=== PATIENT | male | born 1955 | race Caucasian/White ===

== ENCOUNTER → 2016-12-20 | Outpatient (CLI) | payer BC | LOC: RAD 14:45 | PROVIDERS: ATTEND Specialist | DX: C34.02 Malignant neoplasm of left main bronchus (principal) | CPT/HCPCS: 78815; A9552 ==

== ENCOUNTER → 2017-04-02 | Outpatient (CLI) | payer BC, MEDICAID | LOC: RAD 14:36 | PROVIDERS: ATTEND Internal Medicine | DX: C34.02 Malignant neoplasm of left main bronchus (principal); Z92.21 Personal history of antineoplastic chemotherapy | CPT/HCPCS: 78815; A9552 ==

== ENCOUNTER → 2017-07-25 | Outpatient (CLI) | payer BC, MEDICAID ==
--- NOTE | 2017-07-27 08:21 | RADIOLOGY REPORT (SQ) ---
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 TECHNIQUE: Blood glucose level was verified. Above dose of FDG was injected intravenously. 2-D seg mented attenuation correction images were obtained from the base of the skull to the midthighs. Nonc ontrast CT images were obtained for attenuation correction and fusion with emission images. CT image s were performed without oral or intravenous contrast and are not sensitive for parenchymal lesions. A series of overlapping emission PET images were obtained. Images reviewed and manipulated at [facility] work station by the radiologist. Images stored on PACS. LIMITATIONS: None. FINDINGS: HEAD AND NECK: No areas of abnormal metabolic activity in the soft tissues of the head and neck. CHEST: No areas of abnormal metabolic activity in the chest. Stable minimal bandlike scarring in the left perihilar region and left lung apex, non metabolic. ABDOMEN AND PELVIS: No areas of abnormal metabolic activity in the abdomen or pelvis. Expected physi ologic activity is present in the genitourinary system and bowel. PROXIMAL LOWER EXTREMITIES: No areas of abnormal metabolic activity in the soft tissues of the lower extremities. BONES: Stable sclerotic bony lesions throughout the thoracic and lumbar spine sacrum and right and le ft pelvis. These are non metabolic ADDITIONAL CT FINDINGS: Right-sided central line tip superior vena cava. Calcified coronary and aort ic valve. Small hiatal hernia. OTHER: Liver background uptake 2.4 SUV. Blood pool background uptake 1.7 SUV. IMPRESSION: No hypermetabolic lesions worrisome for active metastatic disease TECHNICAL DOCUMENTATION: JOB ID: [id number]- All Rights Reserved
== END ==
LOC: RAD 17:28
PROVIDERS: ATTEND Internal Medicine
DX: C34.02 Malignant neoplasm of left main bronchus (principal)
CPT/HCPCS: 78815; A9552

== ENCOUNTER 2017-09-01 10:48 | Outpatient (CLI) | payer BC, MEDICAID, MEDICARE ==
[~2017-09-01 10:48] MED LIST: NIVOLUMAB 200 MG, NIVOLUMAB 40 MG in NORMAL SALINE 100 ML IV PRN; NORMAL SALINE 250 ML IV PRN
[2017-09-01 11:07] VITALS: BP 143/70
== END 2017-09-01 14:49 | disposition home or self-care (01) ==
LOC: II 10:48 → 5TH 11:01 → II 14:49
PROVIDERS: ATTEND Internal Medicine
PROC: 3E0430M Introduction of Antineoplastic, Monoclonal Antibody, into Central Vein, Percutaneous Approach (ICD-10-PCS; principal; 2017-09-01)
DX: Z51.11 Encounter for antineoplastic chemotherapy (principal); C34.02 Malignant neoplasm of left main bronchus
CPT/HCPCS: 96413; 96523; J9299 ×2

== ENCOUNTER 2017-09-15 10:42 | Outpatient (CLI) | payer MEDICARE, MEDICAID ==
[2017-09-15 11:02] VITALS: BP 151/66
== END 2017-09-15 14:05 | disposition home or self-care (01) ==
LOC: II 10:42 → 5TH 10:49 → II 14:05
PROVIDERS: ATTEND Internal Medicine
PROC: 3E0330M Introduction of Antineoplastic, Monoclonal Antibody, into Peripheral Vein, Percutaneous Approach (ICD-10-PCS; principal; 2017-09-15)
DX: Z51.11 Encounter for antineoplastic chemotherapy (principal); C34.02 Malignant neoplasm of left main bronchus; C78.7 Secondary malignant neoplasm of liver and intrahepatic bile duct; C79.51 Secondary malignant neoplasm of bone
CPT/HCPCS: 96413; 96375; J9299 ×2

== ENCOUNTER 2017-09-29 10:25 | Outpatient (CLI) | payer MEDICAID, MEDICARE ==
[2017-09-29 10:46] VITALS: BP 139/82
== END 2017-09-29 13:10 | disposition home or self-care (01) ==
LOC: II 10:25 → 5TH 10:30 → II 13:10
PROVIDERS: ATTEND Internal Medicine
PROC: 3E0430M Introduction of Antineoplastic, Monoclonal Antibody, into Central Vein, Percutaneous Approach (ICD-10-PCS; principal; 2017-09-29)
DX: Z51.11 Encounter for antineoplastic chemotherapy (principal); C34.02 Malignant neoplasm of left main bronchus
CPT/HCPCS: 96413; 96523; J9299 ×2

== ENCOUNTER 2017-10-13 09:17 | Outpatient (CLI) | payer MEDICAID, MEDICARE ==
[2017-10-13 09:45] VITALS: BP 138/68
[2017-10-13 10:42] LABS: ABSOLUTE BASOPHILS # (AUTO) 0.1 10^3/uL (0.0-0.2); ABSOLUTE EOSINOPHILS # (AUTO) 0.1 10^3/uL (0.0-0.6); ABSOLUTE LYMPHOCYTES (AUTO) 1.3 10^3/uL (0.5-4.7); ABSOLUTE MONOCYTES (AUTO) 0.5 10^3/uL (0.1-1.4); BASOPHILS % (AUTO) 0.8 % (0-2); HEMATOCRIT 42.9 % (37.9-51.0); HEMOGLOBIN 14.9 g/dL (13.5-17.0); HGB HCT DIFFERENCE 1.8; LYMPHOCYTES % (AUTO) 18.4 % (13-45); MEAN CORPUSCULAR HEMOGLOBIN 29.7 pg (27.0-33.4); MEAN CORPUSCULAR HGB CONC 34.7 g/dL (32.0-36.0); MEAN CORPUSCULAR VOLUME 86 fl (80-97); MONOCYTES % (AUTO) 7.4 % (3-13); RED BLOOD COUNT 5.01 10^6/uL (4.35-5.55); RED CELL DISTRIBUTION WIDTH 13.5 % (11.5-14.0); SEGMENTED NEUTROPHILS % (AUTO) 72.4 % (42-78); WHITE BLOOD COUNT 6.9 10^3/uL (4.0-10.5)
== END 2017-10-13 12:43 | disposition home or self-care (01) ==
LOC: II 09:17 → 5TH 09:18 → II 12:43
PROVIDERS: ATTEND Internal Medicine
PROC: 3E0430M Introduction of Antineoplastic, Monoclonal Antibody, into Central Vein, Percutaneous Approach (ICD-10-PCS; principal; 2017-10-13)
DX: Z51.11 Encounter for antineoplastic chemotherapy (principal); C34.02 Malignant neoplasm of left main bronchus
CPT/HCPCS: 36415; 83735; 85025; 96413; 96523; J9299 ×2

== ENCOUNTER 2017-10-27 10:05 | Outpatient (CLI) | payer MEDICARE, MEDICAID ==
[2017-10-27 10:54] VITALS: BP 134/59
== END 2017-10-27 13:56 | disposition home or self-care (01) ==
LOC: II 10:05 → 5TH 10:05 → II 13:56
PROVIDERS: ATTEND Internal Medicine
PROC: 3E0430M Introduction of Antineoplastic, Monoclonal Antibody, into Central Vein, Percutaneous Approach (ICD-10-PCS; principal; 2017-10-27)
DX: Z51.11 Encounter for antineoplastic chemotherapy (principal); C34.02 Malignant neoplasm of left main bronchus
CPT/HCPCS: 96413; 96523; J9299 ×2

== ENCOUNTER 2017-11-10 08:01 | Outpatient (CLI) | payer MEDICAID, MEDICARE ==
[2017-11-10 08:25] LABS: ABSOLUTE BASOPHILS # (AUTO) 0.1 10^3/uL (0.0-0.2); ABSOLUTE LYMPHOCYTES (AUTO) 1.5 10^3/uL (0.5-4.7); ABSOLUTE MONOCYTES (AUTO) 1.5 10^3/uL (0.1-1.4); ABSOLUTE NEUT (AUTO) 10.8 10^3/uL (1.7-8.2); BASOPHILS % (AUTO) 0.4 % (0-2); EOSINOPHILS % (AUTO) 0.2 % (0-6); HEMATOCRIT 43.1 % (37.9-51.0); HEMOGLOBIN 14.7 g/dL (13.5-17.0); LYMPHOCYTES % (AUTO) 10.8 % (13-45); MEAN CORPUSCULAR HEMOGLOBIN 29.5 pg (27.0-33.4); MEAN CORPUSCULAR HGB CONC 34.1 g/dL (32.0-36.0); MEAN CORPUSCULAR VOLUME 86 fl (80-97); MONOCYTES % (AUTO) 10.8 % (3-13); PLATELET COUNT 258 10^3/uL (150-450); RED BLOOD COUNT 4.98 10^6/uL (4.35-5.55); RED CELL DISTRIBUTION WIDTH 13.9 % (11.5-14.0); SEGMENTED NEUTROPHILS % (AUTO) 77.8 % (42-78); TOTAL CELLS COUNTED % (AUTO) 100 %; WHITE BLOOD COUNT 13.9 10^3/uL (4.0-10.5)
[2017-11-10 09:40] VITALS: BP 111/61
== END 2017-11-10 10:43 | disposition home or self-care (01) ==
LOC: II 08:01 → 5TH 08:04 → II 10:43
PROVIDERS: ATTEND Internal Medicine
PROC: 3E0430M Introduction of Antineoplastic, Monoclonal Antibody, into Central Vein, Percutaneous Approach (ICD-10-PCS; principal; 2017-11-10)
DX: Z51.11 Encounter for antineoplastic chemotherapy (principal); C34.02 Malignant neoplasm of left main bronchus
CPT/HCPCS: 36415; 83735; 85025; 96413; 96523; J9299 ×2

== ENCOUNTER 2017-11-24 11:00 | Outpatient (CLI) | payer MEDICARE ==
[2017-11-24 13:34] VITALS: BP 139/67
== END 2017-11-24 14:00 | disposition home or self-care (01) ==
LOC: II 11:00 → 5TH 11:14 → II 14:00
PROVIDERS: ATTEND Internal Medicine
PROC: 3E0430M Introduction of Antineoplastic, Monoclonal Antibody, into Central Vein, Percutaneous Approach (ICD-10-PCS; principal; 2017-11-24)
DX: Z51.11 Encounter for antineoplastic chemotherapy (principal); C34.02 Malignant neoplasm of left main bronchus
CPT/HCPCS: 96413; 96523; J9299 ×2

== ENCOUNTER → 2017-12-05 | Outpatient (CLI) | payer MEDICAID, MEDICARE ==
--- NOTE | 2017-12-06 09:42 | RADIOLOGY REPORT (SQ) ---
EXAM DESCRIPTION: PET CT SKULL/THIGH COMPLETED DATE/TIME: 12/05/2017 6:58 pm REASON FOR STUDY: LUNG CANCER C34.02 MALIGNANT NEOPLASM OF LEFT MAIN BRONCHUS COMPARISON: 07/25/2017 RADIONUCLIDE AND DOSE: 10.9 mCi F18 FDG The route of agent administration: Intravenous FASTING BLOOD SUGAR: 125 mg/dl CONTRAST TYPE AND DOSE: No CT contrast given. TECHNIQUE: Blood glucose level was verified. Above dose of FDG was injected intravenously. 2-D seg mented attenuation correction images were obtained from the base of the skull to the midthighs. Nonc ontrast CT images were obtained for attenuation correction and fusion with emission images. CT image s were performed without oral or intravenous contrast and are not sensitive for parenchymal lesions. A series of overlapping emission PET images were obtained. Images reviewed and manipulated at [facility] work station by the radiologist. Images stored on PACS. LIMITATIONS: None. FINDINGS: HEAD AND NECK: No areas of abnormal metabolic activity in the soft tissues of the head and neck. CHEST: No areas of abnormal metabolic activity in the chest. ABDOMEN AND PELVIS: No areas of abnormal metabolic activity in the abdomen or pelvis. Expected physi ologic activity is present in the genitourinary system and bowel. PROXIMAL LOWER EXTREMITIES: No areas of abnormal metabolic activity in the soft tissues of the lower extremities. BONES: Stable scattered non hypermetabolic sclerotic lesions in the axial skeleton. ADDITIONAL CT FINDINGS: Stable scarring in the left hilum and left apex. OTHER: No other significant findings. IMPRESSION: No evidence of local recurrence or metastatic disease. TECHNICAL DOCUMENTATION: JOB ID: [id number]- All Rights Reserved
== END ==
LOC: RAD 16:37
PROVIDERS: ATTEND Internal Medicine
DX: C34.02 Malignant neoplasm of left main bronchus (principal)
CPT/HCPCS: 78815; A9552

== ENCOUNTER 2017-12-08 10:17 | Outpatient (CLI) | payer MEDICARE ==
[2017-12-08 11:33] VITALS: BP 136/66
== END 2017-12-08 13:13 | disposition home or self-care (01) ==
LOC: II 10:17 → 5TH 10:24 → II 13:13
PROVIDERS: ATTEND Internal Medicine
PROC: 3E0430M Introduction of Antineoplastic, Monoclonal Antibody, into Central Vein, Percutaneous Approach (ICD-10-PCS; principal; 2017-12-08)
DX: Z51.11 Encounter for antineoplastic chemotherapy (principal); C34.02 Malignant neoplasm of left main bronchus
CPT/HCPCS: 96413; 96375; J9299 ×2

== ENCOUNTER → 2018-03-06 | Outpatient (CLI) | payer MEDICAID, MEDICARE ==
--- NOTE | 2018-03-07 10:44 | RADIOLOGY REPORT (SQ) ---
EXAM DESCRIPTION: PET CT SKULL/THIGH COMPLETED DATE/TIME: 03/06/2018 7:54 pm REASON FOR STUDY: LUNG CANCER C34.02 MALIGNANT NEOPLASM OF LEFT MAIN BRONCHUS COMPARISON: PET-CT 08/04/2015, 11/10/2015, 08/23/2016, 07/25/2017, 12/05/2017 RADIONUCLIDE AND DOSE: 12 mCi F18 FDG The route of agent administration: Intravenous FASTING BLOOD SUGAR: 180 mg/dl CONTRAST TYPE AND DOSE: No CT contrast given. TECHNIQUE: Blood glucose level was verified. Above dose of FDG was injected intravenously. 2-D seg mented attenuation correction images were obtained from the base of the skull to the midthighs. Nonc ontrast CT images were obtained for attenuation correction and fusion with emission images. CT image s were performed without oral or intravenous contrast and are not sensitive for parenchymal lesions. A series of overlapping emission PET images were obtained. Images reviewed and manipulated at [facility] work station by the radiologist. Images stored on PACS. LIMITATIONS: None. FINDINGS: HEAD AND NECK: No areas of abnormal metabolic activity in the soft tissues of the head and neck. CHEST: No areas of abnormal metabolic activity in the chest. Non metabolic bandlike scarring in the posterior lung apex. Minimal fullness left upper hilum non metabolic. ABDOMEN AND PELVIS: No areas of abnormal metabolic activity in the abdomen or pelvis. Expected physi ologic activity is present in the genitourinary system and bowel. PROXIMAL LOWER EXTREMITIES: No areas of abnormal metabolic activity in the soft tissues of the lower extremities. BONES: Old healed left anterior 3rd rib fracture. Multiple foci of sclerosis throughout the thoracic spine, ribs, L5 vertebral body, and bony pelvis non metabolic. These are similar compared to 018, 07/25/[address] FINDINGS: Right central line tip superior vena cava. Calcified carotid bifurcations. Small fat containing left inguinal hernia. Calcified aortic valve. OTHER: Liver background activity 1.9 SUV. Blood pool background activity 1.6 SUV IMPRESSION: No metabolically active lesions over the neck chest abdomen or pelvis. Non metabolic sc lerotic bony lesions. Scarring left upper lobe. TECHNICAL DOCUMENTATION: JOB ID: [id number] All Rights Reserved Reading location - IP/workstation name: [email or web address]
== END ==
LOC: RAD 14:45
PROVIDERS: ATTEND Internal Medicine
DX: C34.02 Malignant neoplasm of left main bronchus (principal)
CPT/HCPCS: 78815; A9552

== ENCOUNTER 2018-03-30 09:54 | Outpatient (CLI) | payer MEDICARE, OTHER ==
[2018-03-30 10:30] VITALS: BP 144/70
[2018-03-30 12:00] LABS: ABSOLUTE EOSINOPHILS # (AUTO) 0.1 10^3/uL (0.0-0.6); ABSOLUTE LYMPHOCYTES (AUTO) 1.3 10^3/uL (0.5-4.7); ABSOLUTE MONOCYTES (AUTO) 0.6 10^3/uL (0.1-1.4); BASOPHILS % (AUTO) 0.8 % (0-2); EOSINOPHILS % (AUTO) 1.3 % (0-6); HEMATOCRIT 42.9 % (37.9-51.0); HEMOGLOBIN 14.9 g/dL (13.5-17.0); LYMPHOCYTES % (AUTO) 21.2 % (13-45); MEAN CORPUSCULAR HGB CONC 34.8 g/dL (32.0-36.0); MEAN CORPUSCULAR VOLUME 84 fl (80-97); MONOCYTES % (AUTO) 9.4 % (3-13); PLATELET COUNT 263 10^3/uL (150-450); RED BLOOD COUNT 5.15 10^6/uL (4.35-5.55); RED CELL DISTRIBUTION WIDTH 14.1 % (11.5-14.0); SEGMENTED NEUTROPHILS % (AUTO) 67.3 % (42-78); TOTAL CELLS COUNTED % (AUTO) 100 %; WHITE BLOOD COUNT 5.9 10^3/uL (4.0-10.5)
[2018-03-30 12:14] LABS: ALANINE AMINOTRANSFERASE 35 U/L (21-72); ALBUMIN 4.3 g/dL (3.5-5.0); ALKALINE PHOSPHATASE 92 U/L (38-126); ANION GAP 12 (5-19); ASPARTATE AMINO TRANSFERASE 11 U/L (17-59); BILIRUBIN,DIRECT 0.2 mg/dL (0.0-0.4); BILIRUBIN,TOTAL 0.2 mg/dL (0.2-1.3); BLOOD UREA NITROGEN 16 mg/dL (7-20); CALCIUM 9.4 mg/dL (8.4-10.2); CARBON DIOXIDE 31 mmol/L (22-30); CHLORIDE 95 mmol/L (98-107); GLUCOSE 249 mg/dL (75-110); POTASSIUM 5.1 mmol/L (3.6-5.0); SODIUM 137.5 mmol/L (137-145); TOTAL PROTEIN 7.2 g/dL (6.3-8.2)
== END 2018-03-30 14:04 | disposition home or self-care (01) ==
LOC: II 09:54 → 5TH 09:56 → II 14:04
PROVIDERS: ATTEND Internal Medicine
PROC: 3E0430M Introduction of Antineoplastic, Monoclonal Antibody, into Central Vein, Percutaneous Approach (ICD-10-PCS; principal; 2018-03-30)
DX: Z51.11 Encounter for antineoplastic chemotherapy (principal); C34.02 Malignant neoplasm of left main bronchus
CPT/HCPCS: 36415; 83735; 85025; 80053; 96413; 96374; J9299 ×2

== ENCOUNTER 2018-04-13 12:29 | Outpatient (CLI) | payer MEDICARE, OTHER ==
[2018-04-13 13:14] VITALS: BP 152/69
== END 2018-04-13 15:32 | disposition home or self-care (01) ==
LOC: II 12:29 → 5TH 12:31 → II 15:32
PROVIDERS: ATTEND Internal Medicine
PROC: 3E0430M Introduction of Antineoplastic, Monoclonal Antibody, into Central Vein, Percutaneous Approach (ICD-10-PCS; principal; 2018-04-13)
DX: Z51.11 Encounter for antineoplastic chemotherapy (principal); C34.02 Malignant neoplasm of left main bronchus
CPT/HCPCS: 96413; J9299 ×2

== ENCOUNTER → 2018-06-05 | Outpatient (CLI) | payer MEDICARE, OTHER ==
--- NOTE | 2018-06-06 09:22 | RADIOLOGY REPORT (SQ) ---
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 TECHNIQUE: Blood glucose level was verified. Above dose of FDG was injected intravenously. 2-D seg mented attenuation correction images were obtained from the base of the skull to the midthighs. Nonc ontrast CT images were obtained for attenuation correction and fusion with emission images. CT image s were performed without oral or intravenous contrast and are not sensitive for parenchymal lesions. A series of overlapping emission PET images were obtained. Images reviewed and manipulated at [facility] work station by the radiologist. Images stored on PACS. LIMITATIONS: None. FINDINGS: HEAD AND NECK: No areas of abnormal metabolic activity in the soft tissues of the head and neck. CHEST: No areas of abnormal metabolic activity in the chest. Stable scarring in the left perihilar r egion, stable pleural thickening with adjacent parenchymal scarring from radiation therapy in the ant erior right upper lobe and posterior aspect superior segment left lower lobe. ABDOMEN AND PELVIS: No areas of abnormal metabolic activity in the abdomen or pelvis. Expected physi ologic activity is present in the genitourinary system and bowel. PROXIMAL LOWER EXTREMITIES: No areas of abnormal metabolic activity in the soft tissues of the lower extremities. BONES: No abnormal metabolic activity in the visualized skeleton. Old sclerotic metastatic lesions a re present in the T-Tube, T10, and L5 vertebral bodies, bilateral innominate bones, anterior left upp er ribs. ADDITIONAL CT FINDINGS: Right permanent central line tip superior vena cava. Small hiatal hernia. C alcified carotid bifurcations. Calcified aortic valve. OTHER: Liver background activity 2.0 SUV. Blood pool background activity 1.4 SUV. IMPRESSION: No metabolically active lesions are identified. TECHNICAL DOCUMENTATION: JOB ID: [id number] [employer]- All Rights Reserved Reading location - IP/workstation name: [email or web address]
== END ==
LOC: RAD 05-29 16:10
PROVIDERS: ATTEND Internal Medicine
DX: C34.02 Malignant neoplasm of left main bronchus (principal)
CPT/HCPCS: 78815; A9552

== ENCOUNTER → 2018-08-28 | Outpatient (CLI) | payer MEDICARE, OTHER ==
--- NOTE | 2018-08-29 08:50 | RADIOLOGY REPORT (SQ) ---
EXAM DESCRIPTION: PET CT SKULL/THIGH COMPLETED DATE/TIME: 08/28/2018 10:36 pm REASON FOR STUDY: LUNG CANCER C34.02 MALIGNANT NEOPLASM OF LEFT MAIN BRONCHUS COMPARISON: Prior PET-CT 07/25/2017, 03/06/2018, 06/05/2018 RADIONUCLIDE AND DOSE: 11.6 mCi F18 FDG The route of agent administration: Intravenous FASTING BLOOD SUGAR: 174 mg/dl CONTRAST TYPE AND DOSE: No CT contrast given. TECHNIQUE: Blood glucose level was verified. Above dose of FDG was injected intravenously. 2-D seg mented attenuation correction images were obtained from the base of the skull to the midthighs. Nonc ontrast CT images were obtained for attenuation correction and fusion with emission images. CT image s were performed without oral or intravenous contrast and are not sensitive for parenchymal lesions. A series of overlapping emission PET images were obtained. Images reviewed and manipulated at [facility] work station by the radiologist. Images stored on PACS. LIMITATIONS: None. FINDINGS: HEAD AND NECK: No areas of abnormal metabolic activity in the soft tissues of the head and neck. CHEST: No areas of abnormal metabolic activity in the chest. ABDOMEN AND PELVIS: No areas of abnormal metabolic activity in the abdomen or pelvis. Expected physi ologic activity is present in the genitourinary system and bowel. PROXIMAL LOWER EXTREMITIES: No areas of abnormal metabolic activity in the soft tissues of the lower extremities. BONES: No abnormal metabolic activity in the visualized skeleton. ADDITIONAL CT FINDINGS: Calcified aortic valve. Right permanent central line tip superior vena cava. OTHER: No other significant findings. IMPRESSION: No hypermetabolic lesions worrisome for recurrent lung cancer TECHNICAL DOCUMENTATION: JOB ID: [id number]- All Rights Reserved Reading location - IP/workstation name: [email or web address]
== END ==
LOC: RAD 20:16
PROVIDERS: ATTEND Physician Assistant Medical
DX: C34.02 Malignant neoplasm of left main bronchus (principal)
CPT/HCPCS: 78815; A9552

== ENCOUNTER → 2018-12-18 | Outpatient (CLI) | payer MEDICARE, OTHER ==
--- NOTE | 2018-12-19 09:36 | RADIOLOGY REPORT (SQ) ---
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 TECHNIQUE: Blood glucose level was verified. Above dose of FDG was injected intravenously. 2-D seg mented attenuation correction images were obtained from the base of the skull to the midthighs. Nonc ontrast CT images were obtained for attenuation correction and fusion with emission images. CT image s were performed without oral or intravenous contrast and are not sensitive for parenchymal lesions. A series of overlapping emission PET images were obtained. Images reviewed and manipulated at [facility] work station by the radiologist. Images stored on PACS. LIMITATIONS: None. FINDINGS: HEAD AND NECK: No areas of abnormal metabolic activity in the soft tissues of the head and neck. CHEST: No areas of abnormal metabolic activity in the chest. ABDOMEN AND PELVIS: No areas of abnormal metabolic activity in the abdomen or pelvis. Expected physi ologic activity is present in the genitourinary system and bowel. PROXIMAL LOWER EXTREMITIES: No areas of abnormal metabolic activity in the soft tissues of the lower extremities. BONES: No abnormal metabolic activity in the visualized skeleton. ADDITIONAL CT FINDINGS: Right permanent central line tip superior vena cava. Heavy coronary artery c alcifications. Small hiatal hernia old post therapeutic bandlike scarring in the left perihilar lung parenchyma from radiation therapy old anterior left 4th rib fracture OTHER: No other significant findings. IMPRESSION: No PET-CT evidence of recurrent squamous lung carcinoma. TECHNICAL DOCUMENTATION: JOB ID: [id number] [employer]- All Rights Reserved Reading location - IP/workstation name: [email or web address]
== END ==
LOC: RAD 14:51
PROVIDERS: ATTEND Physician Assistant Medical
DX: C34.02 Malignant neoplasm of left main bronchus (principal); C79.51 Secondary malignant neoplasm of bone
CPT/HCPCS: 78815; A9552

== ENCOUNTER → 2019-06-25 | Outpatient (CLI) | payer MEDICARE, OTHER ==
--- NOTE | 2019-06-26 12:12 | RADIOLOGY REPORT (SQ) ---
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 TECHNIQUE: Blood glucose level was verified. Above dose of FDG was injected intravenously. 2-D seg mented attenuation correction images were obtained from the base of the skull to the midthighs. Nonc ontrast CT images were obtained for attenuation correction and fusion with emission images. CT image s were performed without oral or intravenous contrast and are not sensitive for parenchymal lesions. A series of overlapping emission PET images were obtained. Images reviewed and manipulated at [facility] work station by the radiologist. Images stored on PACS. LIMITATIONS: None. FINDINGS: HEAD AND NECK: No areas of abnormal metabolic activity in the soft tissues of the head and neck. CHEST: No areas of abnormal metabolic activity in the chest. Old post radiation therapy change in th e medial left lung along the hilum. This is non metabolic. ABDOMEN AND PELVIS: No areas of abnormal metabolic activity in the abdomen or pelvis. Expected physi ologic activity is present in the genitourinary system and bowel. PROXIMAL LOWER EXTREMITIES: No areas of abnormal metabolic activity in the soft tissues of the lower extremities. BONES: No abnormal metabolic activity in the visualized skeleton. There are patchy areas of sclerosi s and ribs thoracic spine and pelvis related to previously treated bone metastatic lesions. These ar e non metabolic on today's study. ADDITIONAL CT FINDINGS: Right-sided permanent central line tip superior vena cava. Heavily calcified aortic valve and coronary arteries. Old hiatal hernia. OTHER: No other significant findings. IMPRESSION: No PET-CT evidence of recurrent metabolically active lung cancer TECHNICAL DOCUMENTATION: JOB ID: [id number]- All Rights Reserved Reading location - IP/workstation name: [email or web address]
== END ==
LOC: RAD 16:40
PROVIDERS: ATTEND Physician Assistant Medical
DX: C34.02 Malignant neoplasm of left main bronchus (principal)
CPT/HCPCS: 78815; A9552

== ENCOUNTER 2019-10-15 00:43 | Emergency (ER) | payer MEDICARE, OTHER ==
[2019-10-15] MEDS ORDERED: IPRATROPIUM/ALBUTEROL 0.5-2.5 MG/3 ML AMPUL NEB ONE ×2 (00:53→02:18)
[2019-10-15] MEDS ORDERED: IPRATROPIUM BROMIDE HFA 17 MCG/PUFF 200 PUFF/12.9 GM MDI IH ONE (01:09)
--- NOTE | 2019-10-15 01:09 | ER Document Report ---
ED General - General Chief Complaint: Shortness Of Breath Stated Complaint: RESPIRATORY DISTRESS Time Seen by Provider: 10/15/19 00:49 Primary Care Provider: DIGNA DODGE PA-C [ALLIED HEALTH PROFESSIONAL] - Follow up as needed TRAVEL OUTSIDE OF THE [place] IN LAST 30 DAYS: No - HPI Notes: 64-year-old male with a history of stage IV lung cancer, currently undergoing chemotherapy by Dr. Moore, presents to the emergency department via rescue for evaluation of acute onset of shortness of breath about 1-1/2 hours prior to arrival. EMS reports that the patient was very hypertensive and diaphoretic when they arrived and seemed to be in acute distress in terms of respiratory difficulty. EMS stated that after giving the patient a albuterol treatment, 2 DuoNeb treatments and 125 mg of Solu-Medrol IV he seems to be improving somewhat. Patient's initial pulse ox per EMS upon their arrival was 58% on room air. Patient states he is not on home O2. - Related Data Allergies/Adverse Reactions: epinephrine [Epinephrine] Allergy (Severe, Verified 05/06/15 12:18) Tachycardia indomethacin [Indomethacin] Allergy (Severe, Verified 05/06/15 12:18) GI BLEED Past Medical History - General Information source: Patient, Emergency Med Personnel - Social History Smoking Status: Current Every Day Smoker Family History: Reviewed & Not Pertinent Patient has suicidal ideation: No Patient has homicidal ideation: No - Past Medical History Cardiac Medical History: Reports: Hx Hypertension - NOT ON MEDS Denies: Hx Coronary Artery Disease, Hx Heart Attack Pulmonary Medical History: Reports: Hx Asthma - FROM , Hx Bronchitis, Hx Pneumonia - many years ago (15-20 yrs ago) Denies: Hx COPD Neurological Medical History: Denies: Hx Cerebrovascular Accident, Hx Seizures Malignancy Medical History: Reports Hx Lung Cancer Musculoskeletal Medical History: Reports Hx Arthritis - SHOULDERS - Immunizations Hx Diphtheria, Pertussis, Tetanus Vaccination: No Hx Pneumococcal Vaccination: 11/22/04 Review of Systems - Review of Systems Constitutional: No symptoms reported EENT: No symptoms reported Cardiovascular: No symptoms reported Respiratory: Cough, Short of breath Gastrointestinal: No symptoms reported Genitourinary: No symptoms reported Male Genitourinary: No symptoms reported Musculoskeletal: No symptoms reported Skin: No symptoms reported Hematologic/Lymphatic: No symptoms reported Neurological/Psychological: No symptoms reported -: Yes All other systems reviewed and negative Physical Exam - Vital signs Vitals: Resp Pulse Ox 21 H 100 10/15/19 00:46 10/15/19 00:46 - Notes Notes: PHYSICAL EXAMINATION: GENERAL: Patient is ill-appearing and does appear to be in some respiratory distress. Patient is tachypneic and is using accessory muscles. Patient is able to speak in short sentences. HEAD: Atraumatic, normocephalic. EYES: Pupils equal round and reactive to light, extraocular movements intact, sclera anicteric, conjunctiva are normal. ENT: nares patent, oropharynx clear without exudates. Moist mucous membranes. NECK: Normal range of motion, supple without lymphadenopathy LUNGS: Diffuse rhonchi are noted on auscultation. HEART: Tachycardia without murmurs ABDOMEN: Soft, nontender, normoactive bowel sounds. No guarding, no rebound. No masses appreciated. EXTREMITIES: Normal range of motion, no pitting or edema. No cyanosis. NEUROLOGICAL: No focal neurological deficits. Moves all extremities spontaneously and on command. PSYCH: Normal mood, normal affect. SKIN: Warm, Dry, normal turgor, no rashes or lesions noted. Course - Re-evaluation Re-evalutation: 10/15/19 04:56 Patient is currently sleeping, no acute distress SPO2 is 92 blood pressure is 142/79 heart rate of 98. - Vital Signs Vital signs: Temp Pulse Resp BP Pulse Ox 98.1 F 117 H 16 132/66 H 96 10/15/19 00:50 10/15/19 00:50 10/15/19 03:23 10/15/19 04:21 10/15/19 04:21 10/15/19 04:57 Vital signs reviewed by this MD. - Laboratory Result Diagrams: 10/15/19 00:20 10/15/19 00:20 Laboratory results interpreted by me: 10/15/19 10/15/19 10/15/19 00:20 00:20 00:20 Seg Neutrophils % 40.5 L Potassium 5.1 H Glucose 369 H POC Glucose NT-Pro-B Natriuret Pep 854 H 10/15/19 00:56 Seg Neutrophils % Potassium Glucose POC Glucose 322 H NT-Pro-B Natriuret Pep All lab results reviewed by this MD. - Diagnostic Test Radiology reviewed: Reports reviewed - EKG Interpretation by Me Additional EKG results interpreted by me: 10/15/19 04:57 EKG performed on 10/15/2019 at 00 52 hours was interpreted by this MD. Findings sinus tachycardia, rate 129, normal axis, right bundle branch block present, nonspecific ST segments. Impression sinus tachycardia with right bundle branch block and nonspecific ST segments. Discharge - Discharge Clinical Impression: Acute dyspnea, Lung cancer, Tobacco abuse Condition: Fair Disposition: HOME, SELF-CARE Instructions: Dyspnea, Nonspecific ([facility]) Additional Instructions: HOME CARE INSTRUCTIONS & INFORMATION: Thank you for choosing us for your medical needs. We hope you're satisfied with the care you received. After you leave, you must properly care for your problem and, at the same time, observe its progress. Any condition can change. Some illnesses can change rapidly over hours or days. If your condition worsens, return to the Emergency Department or see your physician promptly. ABOUT YOUR X-RAYS AND EKG'S: If you had an EKG or X-rays taken, they have been read by the Emergency Physician. The X-rays and EKG's will also be read by a Radiologist or Sack Filler within 24 hours. If discrepancies are noted, you will be notified by telephone. Please be certain the ED has a correct telephone number & address where you can be reached. Also, realize that some fractures or abnormalities do not show up on initial X-rays. If your symptoms continue, see your physician. ABOUT YOUR LABORATORY TEST: If you had laboratory tests, the results have been reviewed by the Emergency Physician. Some test results (for example cultures) may not be available for several days. You will be contacted if any test result shows you need additional treatment. Please be certain the ED has a correct telephone number and address where you can be reached. ABOUT YOUR MEDICATIONS: You will receive instructions on how to take your medicine on the prescription label you receive. Additional information may be provided by the Pharmacy. If you have questions afterwards, call the ED for clarification or further instructions. Some prescribed medications may cause drowsiness. Do not perform tasks such as driving a car or operating machinery without consulting your Pharmacist. If you feel you need a refill of pain m edication, your condition will need re-evaluation. Please do not call for a refill of any medication. ABOUT YOUR SIGNATURE: Signature of this document acknowledges to followin. Understanding that you received emergency treatment and that you may be released before al medical problems are known or treated. Please be certain the ED has a correct phone number & address where you can be reached. 2. Acknowledgement that you will arrange for follow-up care as recommended. 3. Authorization for the Emergency Physician to provide information to your follow-up Physician in order to maximize your care. AT ANY TIME, IF YOUR SYMPTOMS CHANGE SIGNIFICANTLY OR WORSEN OR YOU DEVELOP NEW SYMPTOMS, RETURN TO THE EMERGENCY DEPARTMENT IMMEDIATELY FOR RE-EVALUATION. OUR GOAL IS TO PROVIDE EXCELLENT MEDICAL CARE! WE HOPE THAT WE HAVE MET YOUR EXPECTATIONS DURING YOUR EMERGENCY DEPARTMENT VISIT AND THAT YOU FEEL YOU HAVE RECEIVED EXCELLENT CARE! Return to the Emergency Department without delay if any worse. Forms: Smoking Cessation Education Referrals: DIGNA DODGE PA-C [ALLIED HEALTH PROFESSIONAL] - Follow up as needed MARIBELL MOORE MD [ACTIVE STAFF] - 10/16/19
[2019-10-15 01:12] LABS: ABSOLUTE BASOPHILS # (AUTO) 0.1 10^3/uL (0.0-0.2); ABSOLUTE EOSINOPHILS # (AUTO) 0.3 10^3/uL (0.0-0.6); ABSOLUTE LYMPHOCYTES (AUTO) 3.1 10^3/uL (0.5-4.7); ABSOLUTE MONOCYTES (AUTO) 0.7 10^3/uL (0.1-1.4); ABSOLUTE NEUT (AUTO) 2.9 10^3/uL (1.7-8.2); BASOPHILS % (AUTO) 1.8 % (0-2); EOSINOPHILS % (AUTO) 4.7 % (0-6); HEMOGLOBIN 15.4 g/dL (13.5-17.0); LYMPHOCYTES % (AUTO) 43.6 % (13-45); MEAN CORPUSCULAR HEMOGLOBIN 29.1 pg (27.0-33.4); MEAN CORPUSCULAR HGB CONC 34.2 g/dL (32.0-36.0); MEAN CORPUSCULAR VOLUME 85 fl (80-97); MONOCYTES % (AUTO) 9.4 % (3-13); PLATELET COUNT 253 10^3/uL (150-450); RED BLOOD COUNT 5.29 10^6/uL (4.35-5.55); SEGMENTED NEUTROPHILS % (AUTO) 40.5 % (42-78); TOTAL CELLS COUNTED % (AUTO) 100 %; WHITE BLOOD COUNT 7.1 10^3/uL (4.0-10.5)
[2019-10-15 01:40] LABS: ALBUMIN 4.2 g/dL (3.5-5.0); ALKALINE PHOSPHATASE 125 U/L (38-126); ANION GAP 12 (5-19); ASPARTATE AMINO TRANSFERASE 35 U/L (17-59); BILIRUBIN,DIRECT 0.1 mg/dL (0.0-0.4); BILIRUBIN,TOTAL 0.3 mg/dL (0.2-1.3); BLOOD UREA NITROGEN 14 mg/dL (7-20); CALCIUM 9.1 mg/dL (8.4-10.2); CARBON DIOXIDE 28 mmol/L (22-30); CHLORIDE 98 mmol/L (98-107); GLUCOSE 369 mg/dL (75-110); POTASSIUM 5.1 mmol/L (3.6-5.0); TOTAL PROTEIN 7.6 g/dL (6.3-8.2)
--- NOTE | 2019-10-15 01:49 | RADIOLOGY REPORT (SQ) ---
EXAM DESCRIPTION: XR CHEST 1 VIEW COMPLETED DATE/TME: 10/15/2019 00:49 CLINICAL HISTORY: 64 years Male, acute dyspnea COMPARISON: 05/08/15 NUMBER OF VIEWS/TECHNIQUE: 1/AP FINDINGS: Increased lung volume, clear parenchyma, normal cardiac silhouette, and intact bony thorax. Right jugular miniport catheter tip at the SVC. IMPRESSION: No acute cardiopulmonary findings.
[2019-10-15 01:52] LABS: TROPONIN I 0.02 ng/mL
[2019-10-15] MEDS ORDERED: NORMAL SALINE 500 ML IV ONE (01:59)
--- NOTE | 2019-10-15 04:02 | RADIOLOGY REPORT (SQ) ---
CT angiogram chest with contrast on 10/15/2019 at 3:17 AM CLINICAL INDICATION: Lung cancer, acute shortness of breath TECHNIQUE: Multiple axial images are obtained throughout the chest following the administration of IV contrast. Computer generated 3D reconstructions/MIPS were performed. This exam was performed according to our departmental dose-optimization program, which includes automated exposure control, adjustment of the mA and/or kV according to patient size and/or use of iterative reconstruction technique. Total DLP is 549.65 mGy*cm. COMPARISON: 06/25/2019 FINDINGS: There is no thoracic aortic aneurysm or dissection. Limited visualized upper abdomen is unremarkable. There is no pleural or pericardial effusion. Coronary artery calcifications and other vascular calcifications are noted. There are no filling defects within the pulmonary arteries to suggest pulmonary embolus. There is a stable central left upper lobe irregular soft tissue density with endobronchial component consistent with the patient's prior malignancy. Based upon the prior PET/CT, this is treated disease and/or posttreatment related changes. There is linear atelectasis or scarring in the left upper lung. There are some stable peripheral areas of atelectasis or scarring in the left lung. Lungs are otherwise clear. No acute bony abnormality is noted. IMPRESSION: 1. No evidence of pulmonary embolus. 2. Otherwise essentially stable exam.
[2019-10-15 05:19] VITALS: BP 149/72
--- NOTE | 2019-10-15 17:09 | EKG REPORT ---
SEVERITY:- ABNORMAL ECG - SINUS TACHYCARDIA RIGHT BUNDLE BRANCH BLOCK LPFB : Confirmed by: Damion Bingham MD 15-Oct-2019 17:08:42
== END 2019-10-15 06:57 | disposition home or self-care (01) ==
LOC: ER 00:43
DX: R06.02 Shortness of breath (principal); R06.00 Dyspnea, unspecified; C34.90 Malignant neoplasm of unspecified part of unspecified bronchus or lung; F17.200 Nicotine dependence, unspecified, uncomplicated; Z79.899 Other long term (current) drug therapy
CPT/HCPCS: 93005; 94640; 99285; 96360; 96361; 36415; 82962; 85025; 80053; 84484; 83605; 83880; 71045; 71275; 93010; J7040; A9270; J7620

== ENCOUNTER 2019-11-05 01:48 | Inpatient (IN) | payer MEDICARE, OTHER ==
[2019-11-05 02:38] LABS: VENOUS BLOOD BASE EXCESS 4.8 mmol/L; VENOUS BLOOD HCO3 32.3 mmol/L (20-32); VENOUS BLOOD PH 7.36 (7.30-7.42)
[2019-11-05 02:48] LABS: ABSOLUTE BASOPHILS # (AUTO) 0.1 10^3/uL (0.0-0.2); ABSOLUTE EOSINOPHILS # (AUTO) 0.2 10^3/uL (0.0-0.6); ABSOLUTE LYMPHOCYTES (AUTO) 1.7 10^3/uL (0.5-4.7); ABSOLUTE MONOCYTES (AUTO) 0.5 10^3/uL (0.1-1.4); ABSOLUTE NEUT (AUTO) 6.6 10^3/uL (1.7-8.2); BASOPHILS % (AUTO) 0.7 % (0-2); EOSINOPHILS % (AUTO) 2.6 % (0-6); HEMATOCRIT 45.6 % (37.9-51.0); HEMOGLOBIN 15.4 g/dL (13.5-17.0); LYMPHOCYTES % (AUTO) 18.2 % (13-45); MEAN CORPUSCULAR HEMOGLOBIN 28.9 pg (27.0-33.4); MEAN CORPUSCULAR HGB CONC 33.9 g/dL (32.0-36.0); MEAN CORPUSCULAR VOLUME 86 fl (80-97); MONOCYTES % (AUTO) 5.8 % (3-13); PLATELET COUNT 209 10^3/uL (150-450); RED BLOOD COUNT 5.33 10^6/uL (4.35-5.55); RED CELL DISTRIBUTION WIDTH 14.3 % (11.5-14.0); SEGMENTED NEUTROPHILS % (AUTO) 72.7 % (42-78); TOTAL CELLS COUNTED % (AUTO) 100 %; WHITE BLOOD COUNT 9.1 10^3/uL (4.0-10.5)
[2019-11-05 02:52] LABS: INTERNATIONAL RATION (INR) 0.92; PROTHROMBIN TIME 12.3 SEC (11.4-15.4)
[2019-11-05 03:06] LABS: ALKALINE PHOSPHATASE 143 U/L (38-126); ANION GAP 7 (5-19); ASPARTATE AMINO TRANSFERASE 15 U/L (17-59); BILIRUBIN,DIRECT 0.2 mg/dL (0.0-0.4); BILIRUBIN,TOTAL 0.5 mg/dL (0.2-1.3); BLOOD UREA NITROGEN 15 mg/dL (7-20); CALCIUM 8.8 mg/dL (8.4-10.2); CARBON DIOXIDE 32 mmol/L (22-30); CHLORIDE 96 mmol/L (98-107); POTASSIUM 4.5 mmol/L (3.6-5.0); TOTAL PROTEIN 6.9 g/dL (6.3-8.2)
[2019-11-05 03:15] LABS: GLUCOSE 406 mg/dL (75-110)
--- NOTE | 2019-11-05 03:40 | RADIOLOGY REPORT (SQ) ---
EXAM DESCRIPTION: X-ray single view chest. CLINICAL HISTORY: 64 years Male, SOB COMPARISON: Prior chest CT and chest x-ray performed on 10/15/2019 and TECHNIQUE: Single portable x-ray view of the chest performed on 11/05/2019 at 2:34 AM FINDINGS: The lungs are hyperinflated. There is a vague parenchymal opacity projecting over the left upper lobe over the posterior aspect of the left 5th rib. The lungs are otherwise grossly clear. The abnormalities noted on the prior chest CT are not well visualized on this examination. There is no evidence of a pneumothorax. The cardiac silhouette is stable and is mildly prominent. The mediastinal contours are normal. No acute osseous abnormality is identified. No focal soft tissue abnormalities are seen. Lines and tubes: The right IJ central venous catheter tip overlies the region of the superior vena cava. IMPRESSION: 1. Vague parenchymal opacity projecting over the posterior aspect of the left 5th rib. 2. Hyperinflation of the lungs. 3. Right IJ central venous catheter tip overlies the region of the superior vena cava. 4. Otherwise, the lungs are clear. The abnormalities noted on the prior chest CT are not well visualized on this examination.
[2019-11-05 04:40] LABS: APPEARANCE,URINE CLEAR; BILIRUBIN,URINE NEGATIVE (NEGATIVE); COLOR,URINE STRAW; GLUCOSE, URINE >=500 mg/dL (NEGATIVE); KETONES,URINE NEGATIVE (NEGATIVE); PROTEIN,URINE NEGATIVE (NEGATIVE); URINE SPECIFIC GRAVITY 1.021; UROBILINOGEN,URINE NEGATIVE mg/dL (<2.0)
--- NOTE | 2019-11-05 05:12 | ER Document Report ---
ED Respiratory Problem - General Chief Complaint: Shortness Of Breath Stated Complaint: DIFFICULTY BREATHING Time Seen by Provider: 11/05/19 04:58 Primary Care Provider: VÍCTOR DELGADILLO NP-C [Primary Care Provider] - Follow up as needed Notes: 64-year-old male presents to the urgency department with a history of shortness of breath and difficulty breathing. He has a history of COPD and his symptoms have been worse over the past couple of weeks. He was brought in tonight with respiratory distress, CPAP, nebulizer treatments x3, Solu-Medrol 125 mg, and magnesium IV. Patient states he is doing somewhat better, I have explained that his blood sugar is greater than 400. Patient states that he has not been taking his diabetes medicine. He does have the medication at home, however, this is not been taking it. TRAVEL OUTSIDE OF THE [place] IN LAST 30 DAYS: No - Related Data Allergies/Adverse Reactions: epinephrine [Epinephrine] Allergy (Severe, Verified 05/06/15 12:18) Tachycardia indomethacin [Indomethacin] Allergy (Severe, Verified 05/06/15 12:18) GI BLEED Past Medical History - Social History Smoking Status: Former Smoker Chew tobacco use (# tins/day): No Frequency of alcohol use: None Drug Abuse: None Family History: Reviewed & Not Pertinent Patient has suicidal ideation: No Patient has homicidal ideation: No - Past Medical History Cardiac Medical History: Reports: Hx Hypertension - NOT ON MEDS Denies: Hx Coronary Artery Disease, Hx Heart Attack Pulmonary Medical History: Reports: Hx Asthma - FROM , Hx Bronchitis, Hx Pneumonia - many years ago (15-20 yrs ago) Denies: Hx COPD Neurological Medical History: Denies: Hx Cerebrovascular Accident, Hx Seizures Malignancy Medical History: Reports Hx Lung Cancer Musculoskeletal Medical History: Reports Hx Arthritis - SHOULDERS - Immunizations Hx Diphtheria, Pertussis, Tetanus Vaccination: No Hx Pneumococcal Vaccination: 11/22/04 Physical Exam - Vital signs Vitals: Resp Pulse Ox 21 H 97 11/05/19 01:50 11/05/19 01:50 - Notes Notes: PHYSICAL EXAMINATION: Physical Exam: General: Well-nourished well-developed in no acute distress HEENT: NC/AT, pupils equal round and reactive to light, MM moist,nares clear, Neck: supple, no adenopathy, no masses. Lungs: Diffuse wheezing, no rales no rhonchi CVS: Regular rate and rhythm no murmur gallop or rub Abdomen: Soft active nontender, no masses, no hepatosplenomegaly Ext: Left shoulder tenderness, No edema clubbing or cyanosis. Neuro: Alert and responsive, moving all 4 extremities on command, cranial nerves intact. Skin: Intact no open lesions, no rash - HEENT Head: Normocephalic, Atraumatic Eyes: Normal Pupils: PERRL Course - Re-evaluation Re-evalutation: 11/05/19 06:12 Attempted to wean the patient from the BiPAP, after 20 minutes his O2 sat dropped to 90%. Discussed this with the hospitalist, , explained that the patient will need to be hospitalized for further management and treatment. Patient was treated with nebulizer treatments x3, Solu-Medrol 125 mg IV, magnesium IV. A ABG was obtained and IV Humulin was given for a blood sugar greater than 400. - Vital Signs Vital signs: Temp Pulse Resp BP Pulse Ox 97.9 F 13 112/63 97 11/05/19 02:58 11/05/19 04:01 11/05/19 04:01 11/05/19 04:01 - Laboratory Result Diagrams: 11/05/19 02:08 11/05/19 02:08 Laboratory results interpreted by me: 11/05/19 11/05/19 11/05/19 02:08 02:08 02:08 RDW 14.3 H VBG HCO3 32.3 H Sodium 134.5 L Chloride 96 L Carbon Dioxide 32 H Glucose 406 H* AST 15 L Alkaline Phosphatase 143 H Urine Glucose (UA) 11/05/19 04:28 RDW VBG HCO3 Sodium Chloride Carbon Dioxide Glucose AST Alkaline Phosphatase Urine Glucose (UA) >=500 H 11/05/19 05:27 I have reviewed laboratory data and used this information for the treatment decisions regarding the patient. Critical Care Note - Critical Care Note Total time excluding time spent on procedures (mins): 60 - Critical care Discharge - Discharge Clinical Impression: COPD exacerbation Condition: Fair Disposition: ADMITTED INPATIENT Admitting Provider: Rosamaria (Hospitalist) Unit Admitted: Medical Floor Referrals: VÍCTOR DELGADILLO, TROY-C [Primary Care Provider] - Follow up as needed
[2019-11-05] MEDS ORDERED: INSULIN REG, HUMAN 100 UNIT/ML 3 ML VIAL (PYX) IV ONE (05:32)
[2019-11-05] MEDS ORDERED: MAG HYDROX/AL HYDROX/SIMETH SUSP 30 ML UDCUP PO PRN (06:50)
[2019-11-05] MEDS ORDERED: MAGNESIUM HYDROXIDE SUSP 30 ML UDCUP PO PRN (06:50)
[2019-11-05] MEDS ORDERED: LEVALBUTEROL HCL NEB 0.63 MG/3 ML AMPUL NEB PRN (06:50)
[2019-11-05] MEDS ORDERED: ONDANSETRON HCL INJ/PF 4 MG/2 ML SDV IV PRN (06:50)
[2019-11-05] MEDS ORDERED: DEXTROSE 40% GEL 15 GM TUBE PO PRN ×2 (06:55)
[2019-11-05] MEDS ORDERED: GLUCAGON,HUMAN RECOMB 1 MG INJ IM PRN (06:55)
[2019-11-05] MEDS ORDERED: DEXTROSE 50%-WATER 25 GM/50 ML DISP.SYRIN IV PRN ×2 (06:55)
[2019-11-05] MEDS ORDERED: ACETAMINOPHEN 325 MG TABLET PO PRN (06:55)
[2019-11-05] MEDS ORDERED: MORPHINE SULFATE 10 MG/ML INJ IV PRN (06:56)
[2019-11-05] MEDS ORDERED: LORAZEPAM INJ 2 MG/1 ML VIAL IV PRN (06:56)
[2019-11-05 07:06] LABS: ARTERIAL BLOOD BASE EXCESS 1.4 mmol/L; ARTERIAL BLOOD H2CO3 1.65 mmol/L (1.05-1.35); ARTERIAL BLOOD HCO3 28.6 mmol/L (20-24); ARTERIAL BLOOD O2 SATURATION 97.6 % (94-98); ARTERIAL BLOOD PCO2 54.7 mmHg (35-45); ARTERIAL BLOOD PH 7.34 (7.35-7.45); ARTERIAL BLOOD PO2 107.9 mmHg (80-100); ARTERIAL BLOOD TOTAL CO2 30.3 mmol/L (23-27)
[2019-11-05 07:08] LABS: ARTERIAL BLOOD FIO2 30%
[2019-11-05] MEDS: MORPHINE SULFATE 10 MG/ML INJ IV PRN ×3 (08:41→18:40)
[2019-11-05] MEDS: METHYLPREDNISOLONE INJ 40 MG/1 ML SDV IV SCH ×3 (08:43→20:03)
[2019-11-05] MEDS: IPRATROPIUM BROMIDE 0.02% NEB 0.5 MG/2.5 ML AMPUL NEB SCH ×3 (08:43→23:27)
[2019-11-05] MEDS: LEVALBUTEROL HCL NEB 1.25 MG/3 ML AMPUL NEB SCH ×3 (09:05→23:27)
[2019-11-05] MEDS: INSULIN REG, HUMAN 100 UNIT/ML 3 ML VIAL (PYX) SUBCUT PRN ×3 (09:22→18:47)
[2019-11-05] MEDS: DOCUSATE SODIUM 100 MG CAPSULE PO SCH ×2 (09:22→18:42)
[2019-11-05] MEDS: FAMOTIDINE 20 MG TABLET PO SCH ×2 (09:22→21:21)
--- NOTE | 2019-11-05 10:34 | EKG REPORT ---
SEVERITY:- ABNORMAL ECG - SINUS TACHYCARDIA WAYLON, CONSIDER BIATRIAL ABNORMALITIES RIGHT BUNDLE BRANCH BLOCK LAFB : Confirmed by: Damion Bingham MD 05-Nov-2019 10:33:55
[2019-11-05] MEDS: HEPARIN SOD (PORCINE) 5,000 UNIT/ML 1 ML VIAL SUBCUT SCH ×2 (15:35→21:20)
[2019-11-05] MEDS: INSULIN LISPRO 100 UNIT/ML 3 ML VIAL SUBCUT SCH (18:41)
--- NOTE | 2019-11-05 20:30 | PDOC H&P ---
History of Present Illness Admission Date/PCP: 11/05/19 06:18 AMER[facility] V[place]LEGAS Patient complains of: Dyspnea History of Present Illness: RADHA LEYVA is a 64 year old male who presented emergency room with a two- week history of dyspnea. He admits gradual worsening of his dyspnea over the last 2 weeks, with it becoming severe over the last 3 days. His dyspnea has been accompanied by wheezing and is made worse by exertion. He denies other associated or accompanying signs and symptoms. He admits prior similar episodes with previous exacerbations of his COPD. He has not identified any additional aggravating or ameliorating factors for his dyspnea. In the emergency room he was treated with CPAP and nebulizer therapies as well as IV Solu-Medrol. He was subsequently admitted to the hospital for further evaluation treatment. Past Medical History Cardiac Medical History: Reports: Hypertension, Heart Murmur Denies: Atrial Fibrillation, Congestive Heart Failure, Coronary Artery Disease, Myocardial Infarction, Hyperlipidema Pulmonary Medical History: Reports: Asthma, Bronchitis, Pneumonia - many years ago (15-20 yrs ago), Respiratory Failure Denies: Chronic Obstructive Pulmonary Disease (COPD) EENT Medical History: Denies: Cataracts, Ears - Hearing aids Neurological Medical History: Denies: Hemorrhagic CVA, Ischemic CVA, Seizures Endocrine Medical History: Reports: Diabetes Mellitus Type 2 Denies: Diabetes Mellitus Type 1, Hyperthyroidism, Hypothyroidism, Obesity Renal/ Medical History: Reports: Other - Impotency Denies: Chronic Kidney Disease, Nephrolithiasis Malignancy Medical History: Reports: Lung Cancer GI Medical History: Denies: Cirrhosis, Crohn's Disease, Hepatitis, Ulcerative Colitis Musculoskeltal Medical History: Reports: Arthritis - Multiple joints, Gout, Other - Chronic back pain Skin Medical History: Denies: Eczema, Psoriasis Psychiatric Medical History: Reports: Other - Insomnia Denies: Alcohol Dependency, Substance Abuse, Tobacco Dependency Traumatic Medical History: Reports: None Hematology: Denies: Anemia, Bleeding Tendencies Infectious Medical History: Reports: None Past Surgical History Past Surgical History: Reports: Orthopedic Surgery - Cervical spine fusion, Other - Bronchoscopies with biopsy Social History Information Source: Patient Lives with: Spouse/Significant other Smoking Status: Former Smoker Electronic Cigarette use?: No Frequency of Alcohol Use: None Hx Recreational Drug Use: No Drugs: None Hx Prescription Drug Abuse: No - Advance Directive Resuscitation Status: Full Code Surrogate healthcare decision maker:: Daniela Leyva Family History Family History: CAD, Other - Alzheimer's dementia. denies: DM, Hypertension, Malignancy Parental Family History Reviewed: Yes Children Family History Reviewed: No Sibling(s) Family History Reviewed.: Yes Medication/Allergy Home Medications: Albuterol Sulfate [Ventolin Hfa] 2 puff PO Q6 PRN 03/14/15 Fluticasone Propionate [Flovent Hfa] 1 puff PO BID 03/14/15 Ipratropium/Albuterol Sulfate [Duoneb 3 ml Ampul] 1 vial NEB BID PRN 03/14/15 Montelukast Sodium [Singulair 10 mg Tablet] 1 tab PO DAILY 03/14/15 Carboplatin 10 mg IV ASDIR PRN 05/06/15 Ondansetron HCl 8 mg PO BID 05/06/15 Oxycodone HCl 2 tab PO QID 05/06/15 Paclitaxel [Onxol] 6 mg IV ASDIR 05/06/15 Promethazine HCl 25 mg PO Q6H PRN 05/06/15 Oxycodone HCl/Acetaminophen [Percocet 5-325 mg Tablet] 1 - 2 tab PO ASDIR PRN #15 tablet 05/08/15 Allergies/Adverse Reactions: epinephrine [Epinephrine] Allergy (Severe, Verified 05/06/15 12:18) Tachycardia indomethacin [Indomethacin] Allergy (Severe, Verified 05/06/15 12:18) GI BLEED Review of Systems Constitutional: ABSENT: chills, fever(s) Eyes: ABSENT: visual disturbances, other - Eye pain Ears: ABSENT: hearing changes, other - ear pain Nose, Mouth, and Throat: ABSENT: headache(s), mouth pain, sore throat Cardiovascular: PRESENT: as per HPI, dyspnea on exertion. ABSENT: chest pain, edema, orthropnea, palpitations Respiratory: PRESENT: as per HPI, dyspnea, other - Wheezing. ABSENT: cough Gastrointestinal: ABSENT: abdominal pain, constipation, diarrhea, nausea, vomiting Genitourinary: ABSENT: dysuria, hematuria Musculoskeletal: PRESENT: back pain - Chronic upper back pain, other - Chronic arthritis pain. ABSENT: joint swelling, muscle weakness Integumentary: ABSENT: pruritus, rash Neurological: ABSENT: confusion, convulsions, focal weakness, memory loss, syncope Psychiatric: ABSENT: anxiety, depression Endocrine: ABSENT: cold intolerance, heat intolerance Hematologic/Lymphatic: ABSENT: easy bleeding, easy bruising Allergic/Immunologic: PRESENT: seasonal rhinorrhea Physical Exam Vital Signs: Temp Pulse Resp BP Pulse Ox 97.9 F 13 112/63 97 11/05/19 02:58 11/05/19 04:01 11/05/19 04:01 11/05/19 04:01 Intake & Output 11/03/19 11/04/19 11/05/19 23:59 23:59 23:59 Weight 74.7 kg General appearance: PRESENT: no acute distress, cooperative, other - On CPAP Head exam: PRESENT: atraumatic, normocephalic Eye exam: PRESENT: conjunctiva pink. ABSENT: conjunctival injection, scleral icterus Ear exam: PRESENT: normal external ear exam. ABSENT: bleeding, drainage Mouth exam: PRESENT: dry mucosa, neck supple Neck exam: ABSENT: thyromegaly, tracheal deviation Respiratory exam: PRESENT: accessory muscle use - Mild accessory muscle use even on CPAP, decreased breath sounds - Mildly decreased breath sounds throughout all au, prolonged expiratory phas - Moderately prolonged expiratory phase present throughout all au, symmetrical, wheezes - Moderate expiratory wheezes present in all au, other - On CPAP Cardiovascular exam: PRESENT: RRR. ABSENT: clicks, gallop, rubs Pulses: PRESENT: normal radial pulses, normal dorsalis pedis pul Vascular exam: PRESENT: normal capillary refill. ABSENT: pallor GI/Abdominal exam: ABSENT: normal bowel sounds, soft Rectal exam: PRESENT: deferred Extremities exam: ABSENT: joint swelling, pedal edema Musculoskeletal exam: ABSENT: deformity, dislocation Neurological exam: PRESENT: alert, oriented to person, oriented to place, oriented to time, oriented to situation, CN II-XII grossly intact. ABSENT: motor sensory deficit Psychiatric exam: PRESENT: appropriate affect, normal mood Skin exam: PRESENT: dry, intact, warm. ABSENT: jaundice, rash, urticaria Results Laboratory Results: 11/05/19 02:08 11/05/19 02:08 11/05/19 11/05/19 11/05/19 02:08 02:08 02:08 WBC 9.1 RBC 5.33 Hgb 15.4 Hct 45.6 MCV 86 MCH 28.9 MCHC 33.9 RDW 14.3 H Plt Count 209 Seg Neutrophils % 72.7 VBG pH 7.36 VBG pCO2 59.0 VBG HCO3 32.3 H VBG Base Excess 4.8 Sodium 134.5 L Potassium 4.5 Chloride 96 L Carbon Dioxide 32 H Anion Gap 7 BUN 15 Creatinine 0.58 Est GFR ( Amer) > 60 Glucose 406 H* Calcium 8.8 Total Bilirubin 0.5 AST 15 L Alkaline Phosphatase 143 H Total Protein 6.9 Albumin 4.0 Urine Color Urine Appearance Urine pH Ur Specific [place] Urine Protein Urine Glucose (UA) Urine Ketones Urine Blood Urine RBC (Auto) 11/05/19 04:28 WBC RBC Hgb Hct MCV MCH MCHC RDW Plt Count Seg Neutrophils % VBG pH VBG pCO2 VBG HCO3 VBG Base Excess Sodium Potassium Chloride Carbon Dioxide Anion Gap BUN Creatinine Est GFR ( Amer) Glucose Calcium Total Bilirubin AST Alkaline Phosphatase Total Protein Albumin Urine Color STRAW Urine Appearance CLEAR Urine pH 6.0 Ur Specific [place] 1.021 Urine Protein NEGATIVE Urine Glucose (UA) >=500 H Urine Ketones NEGATIVE Urine Blood NEGATIVE Urine RBC (Auto) 0 11/05/19 02:08 Troponin I 0.029 Impressions: Chest X-Ray 11/05/19 02:18 IMPRESSION: 1. Vague parenchymal opacity projecting over the posterior aspect of the left 5th rib. 2. Hyperinflation of the lungs. 3. Right IJ central venous catheter tip overlies the region of the superior vena cava. 4. Otherwise, the lungs are clear. The abnormalities noted on the prior chest CT are not well visualized on this examination. Assessment and Plan - Diagnosis (1) Acute respiratory failure with hypoxia Is this a current diagnosis for this admission?: Yes (2) Diabetes mellitus type 2 in nonobese Is this a current diagnosis for this admission?: Yes (3) Essential hypertension Is this a current diagnosis for this admission?: Yes (4) Chronic upper back pain Is this a current diagnosis for this admission?: Yes (5) History of lung or bronchial cancer Is this a current diagnosis for this admission?: Yes (6) COPD exacerbation Is this a current diagnosis for this admission?: Yes - Plan Summary Summary: Patient is admitted to the medical floor where he will be receiving the usual supportive and symptomatic cares. He will be treated with an aggressive pulmonary toilet utilizing nebulized Xopenex, Atrovent and Pulmicort. He will receive IV Solu-Medrol and a brief series dosing. He will receive supplemental oxygen and supplemental noninvasive airway pressure support as required to maintain an adequate oxygen saturation level of greater than 93%. He will be continued on his usual medications for his chronic medical problems as appropriate. He will be on AC at at bedtime Accu-Cheks with a sliding scale insulin for hyperglycemia and a hypoglycemic protocol in place. Hemoglobin A1c will be obtained. Serial determinations of his CBC, metabolic profile and magnesium levels will be obtained at appropriate intervals. Ativan 0.5 mg IV every 4 hours will be administered as needed for anxiety that may be associated with use of noninvasive airway pressure support devices. - Time Time Spent with patient: 15-24 minutes Medications reviewed and adjusted accordingly: Yes Anticipated discharge: Home - Inpatient Certification Based on my medical assessment, after consideration of the patient's comorbiditi es, presenting symptoms, or acuity I expect that the services needed warrant INPATIENT care.: Yes I certify that my determination is in accordance with my understanding of [facility]'s requirements for reasonable and necessary INPATIENT services [42 CFR 412.3e].: Yes Medical Necessity: Significant Comorbidiites Make Outpatient Treatment Too Risky, Need Close Monitoring Due to Risk of Patient Decompensation, Need for Nebulizer Therapy and Monitoring of Response
[2019-11-05] MEDS ORDERED: NICOTINE 14 MG/24 HR PATCH.TD24 TD PRN (20:31)
[2019-11-05] MEDS: OXYCODONE HCL IR 5 MG TABLET PO PRN (20:41)
[2019-11-05] MEDS: BUPROPION HCL 100 MG TABLET PO SCH (21:21)
[2019-11-05] MEDS: MONTELUKAST SODIUM 10 MG TABLET PO SCH (21:21)
[2019-11-05] MEDS: METOPROLOL SUCCINATE 25 MG TAB.SR.24H PO SCH (21:21)
[2019-11-06] MEDS: OXYCODONE HCL IR 5 MG TABLET PO PRN ×6 (00:26→23:08)
[2019-11-06] MEDS: BUPROPION HCL 100 MG TABLET PO SCH ×3 (05:03→23:27)
[2019-11-06] MEDS: HEPARIN SOD (PORCINE) 5,000 UNIT/ML 1 ML VIAL SUBCUT SCH ×3 (05:03→23:17)
[2019-11-06] MEDS: INSULIN REG, HUMAN 100 UNIT/ML 3 ML VIAL (PYX) SUBCUT PRN ×3 (05:13→08:01)
[2019-11-06 05:46] LABS: HEMATOCRIT 41.8 % (37.9-51.0); HEMOGLOBIN 14.3 g/dL (13.5-17.0); MEAN CORPUSCULAR HEMOGLOBIN 29.4 pg (27.0-33.4); MEAN CORPUSCULAR HGB CONC 34.3 g/dL (32.0-36.0); MEAN CORPUSCULAR VOLUME 86 fl (80-97); PLATELET COUNT 196 10^3/uL (150-450); RED BLOOD COUNT 4.87 10^6/uL (4.35-5.55); RED CELL DISTRIBUTION WIDTH 14.3 % (11.5-14.0); WHITE BLOOD COUNT 17.1 10^3/uL (4.0-10.5)
[2019-11-06 05:54] LABS: ANION GAP 10 (5-19); BLOOD UREA NITROGEN 21 mg/dL (7-20); CALCIUM 8.7 mg/dL (8.4-10.2); CARBON DIOXIDE 29 mmol/L (22-30); CHLORIDE 93 mmol/L (98-107); POTASSIUM 4.9 mmol/L (3.6-5.0)
[2019-11-06 06:11] LABS: GLUCOSE 489 mg/dL (75-110)
[2019-11-06] MEDS: INSULIN LISPRO 100 UNIT/ML 3 ML VIAL SUBCUT SCH ×2 (08:01→11:00)
[2019-11-06] MEDS: LEVALBUTEROL HCL NEB 1.25 MG/3 ML AMPUL NEB SCH ×2 (09:02→17:13)
[2019-11-06] MEDS: IPRATROPIUM BROMIDE 0.02% NEB 0.5 MG/2.5 ML AMPUL NEB SCH ×2 (09:03→17:13)
[2019-11-06] MEDS: DOCUSATE SODIUM 100 MG CAPSULE PO SCH ×2 (09:07→18:11)
[2019-11-06] MEDS: METOPROLOL SUCCINATE 25 MG TAB.SR.24H PO SCH ×2 (09:07→23:11)
[2019-11-06] MEDS: FAMOTIDINE 20 MG TABLET PO SCH ×2 (09:09→23:09)
[2019-11-06] MEDS: INSULIN GLARGINE,HUM.REC.ANLOG 1,000 UNIT/10 ML VIAL SUBCUT SCH ×2 (09:26→23:15)
[2019-11-06] MEDS: LISINOPRIL 10 MG TABLET PO SCH (09:26)
--- NOTE | 2019-11-06 16:34 | PDOC PROGRESS REPORT ---
Subjective Progress Note for:: 11/06/19 Subjective:: No adverse events overnight. No new complaints. He has been off BiPAP but his oxygen level still drop so he is on a nasal cannula. He says he feels better overall. Blood sugars have responded well to insulin. He was not taking anything for his blood sugar at home. Reason For Visit: ACUTE EXACERBATION OF COPD,ACUTE RESPIRATORY Physical Exam Vital Signs: Temp Pulse Resp BP Pulse Ox 98.2 F 81 15 114/54 L 100 11/06/19 12:00 11/06/19 12:00 11/06/19 12:00 11/06/19 12:00 11/06/19 12:00 Intake & Output 11/05/19 11/06/19 11/07/19 06:59 06:59 06:59 Intake Total 1240 976 Balance 1240 976 Weight 74.7 kg 67.1 kg General appearance: PRESENT: no acute distress, cooperative, disheveled Respiratory exam: PRESENT: decreased breath sounds, prolonged expiratory phas, symmetrical, unlabored. ABSENT: accessory muscle use, chest wall tenderness, crackles, rhonchi, tachypnea, wheezes Cardiovascular exam: PRESENT: RRR, +S1, +S2 Pulses: PRESENT: normal carotid pulses Vascular exam: PRESENT: normal capillary refill GI/Abdominal exam: PRESENT: normal bowel sounds, soft. ABSENT: distended, guarding, rebound, tenderness Extremities exam: ABSENT: clubbing, pedal edema Musculoskeletal exam: PRESENT: normal inspection. ABSENT: deformity Neurological exam: PRESENT: alert, awake, oriented to person, oriented to place, oriented to situation Psychiatric exam: PRESENT: appropriate affect, normal mood Skin exam: PRESENT: dry, warm Results Laboratory Results: 11/06/19 04:08 11/06/19 04:08 11/06/19 11/06/19 11/06/19 04:08 04:08 04:08 WBC 17.1 H RBC 4.87 Hgb 14.3 Hct 41.8 MCV 86 MCH 29.4 MCHC 34.3 RDW 14.3 H Plt Count 196 Sodium 132.1 L Potassium 4.9 Chloride 93 L Carbon Dioxide 29 Anion Gap 10 BUN 21 H Creatinine 0.67 Est GFR ( Amer) > 60 Glucose 489 H* Calcium 8.7 Magnesium 2.3 TSH 0.18 L 12/15/19 02:08 Troponin I 0.029 Impressions: Chest X-Ray 11/05/19 02:18 IMPRESSION: 1. Vague parenchymal opacity projecting over the posterior aspect of the left 5th rib. 2. Hyperinflation of the lungs. 3. Right IJ central venous catheter tip overlies the region of the superior vena cava. 4. Otherwise, the lungs are clear. The abnormalities noted on the prior chest CT are not well visualized on this examination. Assessment and Plan - Diagnosis (1) Acute respiratory failure with hypoxia Is this a current diagnosis for this admission?: Yes Plan: Continue supplemental O2 to maintain SPO2 greater than 90% (2) COPD exacerbation Is this a current diagnosis for this admission?: Yes Plan: Continue steroids and bronchodilators (3) Diabetes mellitus type 2 in nonobese Is this a current diagnosis for this admission?: Yes Plan: I have him on Lantus plus a sliding scale. Anticipate he will need insulin whenever he goes home for his hemoglobin A1c of 11.8%. (4) History of lung or bronchial cancer Is this a current diagnosis for this admission?: Yes Plan: He will continue to follow-up with Dr. Ram as previously scheduled - Plan Summary Summary: Patient is admitted to the medical floor where he will be receiving the usual supportive and symptomatic cares. He will be treated with an aggressive pulmonary toilet utilizing nebulized Xopenex, Atrovent and Pulmicort. He will receive IV Solu-Medrol and a brief series dosing. He will receive supplemental oxygen and supplemental noninvasive airway pressure support as required to maintain an adequate oxygen saturation level of greater than 93%. He will be continued on his usual medications for his chronic medical problems as appropriate. He will be on AC at at bedtime Accu-Cheks with a sliding scale insulin for hyperglycemia and a hypoglycemic protocol in place. Hemoglobin A1c will be obtained. Serial determinations of his CBC, metabolic profile and magnesium levels will be obtained at appropriate intervals. Ativan 0.5 mg IV every 4 hours will be administered as needed for anxiety that may be associated with use of noninvasive airway pressure support devices. - Time Time Spent with patient: 15-24 minutes
[2019-11-06] MEDS: MONTELUKAST SODIUM 10 MG TABLET PO SCH (23:11)
[2019-11-07] MEDS: LEVALBUTEROL HCL NEB 1.25 MG/3 ML AMPUL NEB SCH ×2 (00:41→07:30)
[2019-11-07] MEDS: IPRATROPIUM BROMIDE 0.02% NEB 0.5 MG/2.5 ML AMPUL NEB SCH ×3 (00:41→18:30)
[2019-11-07] MEDS: OXYCODONE HCL IR 5 MG TABLET PO PRN ×5 (04:12→21:53)
[2019-11-07 04:36] LABS: HEMATOCRIT 42.7 % (37.9-51.0); HEMOGLOBIN 14.4 g/dL (13.5-17.0); MEAN CORPUSCULAR HGB CONC 33.7 g/dL (32.0-36.0); MEAN CORPUSCULAR VOLUME 86 fl (80-97); PLATELET COUNT 208 10^3/uL (150-450); RED BLOOD COUNT 4.97 10^6/uL (4.35-5.55); RED CELL DISTRIBUTION WIDTH 14.8 % (11.5-14.0); WHITE BLOOD COUNT 12.7 10^3/uL (4.0-10.5)
[2019-11-07] MEDS: HEPARIN SOD (PORCINE) 5,000 UNIT/ML 1 ML VIAL SUBCUT SCH ×3 (05:31→21:50)
[2019-11-07] MEDS: BUPROPION HCL 100 MG TABLET PO SCH ×3 (05:31→21:53)
[2019-11-07] MEDS: INSULIN GLARGINE,HUM.REC.ANLOG 1,000 UNIT/10 ML VIAL SUBCUT SCH ×2 (09:59→21:51)
[2019-11-07] MEDS: DOCUSATE SODIUM 100 MG CAPSULE PO SCH ×2 (09:59→17:50)
[2019-11-07] MEDS: METOPROLOL SUCCINATE 25 MG TAB.SR.24H PO SCH ×2 (10:00→21:53)
[2019-11-07] MEDS: LISINOPRIL 10 MG TABLET PO SCH (10:00)
[2019-11-07] MEDS: FAMOTIDINE 20 MG TABLET PO SCH ×2 (10:01→21:52)
[2019-11-07] MEDS: INSULIN REG, HUMAN 100 UNIT/ML 3 ML VIAL (PYX) SUBCUT PRN ×2 (13:08→17:50)
[2019-11-07] MEDS: IPRATROPIUM/ALBUTEROL 0.5-2.5 MG/3 ML AMPUL NEB SCH ×2 (13:58→20:47)
--- NOTE | 2019-11-07 16:39 | PDOC PROGRESS REPORT ---
Subjective Progress Note for:: 11/07/19 Subjective:: No adverse events overnight. No new complaints. His morning insulin was held this morning because sugars seem to drop yesterday, but it was determined that the glucose was taken after he had been given insulin and the concern was that if he took it again this morning that he would drop too low. As result his mother sugars have been elevated today. His breathing feels okay at rest but he still gets very short of breath with exertion, even minimal exertion. Reason For Visit: ACUTE EXACERBATION OF COPD,ACUTE RESPIRATORY Physical Exam Vital Signs: Temp Pulse Resp BP Pulse Ox 98.6 F 78 18 108/57 L 91 L 11/07/19 11:56 11/07/19 14:00 11/07/19 14:00 11/07/19 11:56 11/07/19 14:00 Intake & Output 11/06/19 11/07/19 11/08/19 06:59 06:59 06:59 Intake Total 1240 1916 240 Balance 1240 1916 240 Weight 67.1 kg 68.1 kg General appearance: PRESENT: no acute distress, cooperative, disheveled Respiratory exam: PRESENT: decreased breath sounds, prolonged expiratory phas, symmetrical, unlabored. ABSENT: accessory muscle use, chest wall tenderness, crackles, rhonchi, tachypnea, wheezes Cardiovascular exam: PRESENT: RRR, +S1, +S2 Pulses: PRESENT: normal carotid pulses Vascular exam: PRESENT: normal capillary refill GI/Abdominal exam: PRESENT: normal bowel sounds, soft. ABSENT: distended, guarding, rebound, tenderness Extremities exam: ABSENT: clubbing, pedal edema Musculoskeletal exam: PRESENT: normal inspection. ABSENT: deformity Neurological exam: PRESENT: alert, awake, oriented to person, oriented to place, oriented to situation Psychiatric exam: PRESENT: appropriate affect, normal mood Skin exam: PRESENT: dry, warm Results Laboratory Results: 11/07/19 03:54 11/06/19 04:08 11/07/19 03:54 WBC 12.7 H RBC 4.97 Hgb 14.4 Hct 42.7 MCV 86 MCH 29.0 MCHC 33.7 RDW 14.8 H Plt Count 208 11/05/19 02:08 Troponin I 0.029 Impressions: Chest X-Ray 11/05/19 02:18 IMPRESSION: 1. Vague parenchymal opacity projecting over the posterior aspect of the left 5th rib. 2. Hyperinflation of the lungs. 3. Right IJ central venous catheter tip overlies the region of the superior vena cava. 4. Otherwise, the lungs are clear. The abnormalities noted on the prior chest CT are not well visualized on this examination. Assessment and Plan - Diagnosis (1) Acute respiratory failure with hypoxia Is this a current diagnosis for this admission?: Yes Plan: Continue supplemental O2 to maintain SPO2 greater than 90% (2) COPD exacerbation Is this a current diagnosis for this admission?: Yes Plan: More actually holding off on steroids because of his blood sugar. He does seem to be making some improvements with bronchodilators, so I have changed him over to duo nebs and increase the frequency and attempt to keep him off steroids. (3) Diabetes mellitus type 2 in nonobese Is this a current diagnosis for this admission?: Yes Plan: His insulin regimen will still require some fine-tuning, but he is definitely getting need to go home on insulin. (4) History of lung or bronchial cancer Is this a current diagnosis for this admission?: Yes Plan: He will continue to follow-up with Dr. Ram as previously scheduled - Plan Summary Summary: Patient is admitted to the medical floor where he will be receiving the usual supportive and symptomatic cares. He will be treated with an aggressive pulmonary toilet utilizing nebulized Xopenex, Atrovent and Pulmicort. He will receive IV Solu-Medrol and a brief series dosing. He will receive supplemental oxygen and supplemental noninvasive airway pressure support as required to maintain an adequate oxygen saturation level of greater than 93%. He will be continued on his usual medications for his chronic medical problems as appropriate. He will be on AC at at bedtime Accu-Cheks with a sliding scale insulin for hyperglycemia and a hypoglycemic protocol in place. Hemoglobin A1c will be obtained. Serial determinations of his CBC, metabolic profile and magnesium levels will be obtained at appropriate intervals. Ativan 0.5 mg IV every 4 hours will be administered as needed for anxiety that may be associated with use of noninvasive airway pressure support devices. - Time Time Spent with patient: 15-24 minutes
[2019-11-07] MEDS: MONTELUKAST SODIUM 10 MG TABLET PO SCH (21:53)
[2019-11-08] MEDS: OXYCODONE HCL IR 5 MG TABLET PO PRN ×3 (02:35→13:05)
[2019-11-08] MEDS: IPRATROPIUM/ALBUTEROL 0.5-2.5 MG/3 ML AMPUL NEB SCH ×3 (04:06→13:17)
[2019-11-08] MEDS: BUPROPION HCL 100 MG TABLET PO SCH ×2 (05:32→13:05)
[2019-11-08] MEDS: HEPARIN SOD (PORCINE) 5,000 UNIT/ML 1 ML VIAL SUBCUT SCH ×2 (05:32→13:04)
[2019-11-08 07:20] LABS: HEMATOCRIT 44.9 % (37.9-51.0); HEMOGLOBIN 15.3 g/dL (13.5-17.0); MEAN CORPUSCULAR HGB CONC 34.1 g/dL (32.0-36.0); MEAN CORPUSCULAR VOLUME 85 fl (80-97); PLATELET COUNT 209 10^3/uL (150-450); RED BLOOD COUNT 5.28 10^6/uL (4.35-5.55); RED CELL DISTRIBUTION WIDTH 14.5 % (11.5-14.0); WHITE BLOOD COUNT 9.8 10^3/uL (4.0-10.5)
[2019-11-08] MEDS: LISINOPRIL 10 MG TABLET PO SCH (09:16)
[2019-11-08] MEDS: FAMOTIDINE 20 MG TABLET PO SCH (09:16)
[2019-11-08] MEDS: METOPROLOL SUCCINATE 25 MG TAB.SR.24H PO SCH (09:16)
[2019-11-08] MEDS: INSULIN GLARGINE,HUM.REC.ANLOG 1,000 UNIT/10 ML VIAL SUBCUT SCH (09:17)
[2019-11-08] MEDS: DOCUSATE SODIUM 100 MG CAPSULE PO SCH (09:17)
[2019-11-08 13:55] VITALS: BP 121/69
--- NOTE | 2019-11-08 16:49 | PDOC DISCHARGE SUMMARY ---
Impression - Admit/DC Date/PCP Admission Date/Primary Care Provider: 11/05/19 06:18 AMERICO VILLEGAS Discharge Date: 11/08/19 - Discharge Diagnosis (1) Acute respiratory failure with hypoxia Is this a current diagnosis for this admission?: Yes (2) COPD exacerbation Is this a current diagnosis for this admission?: Yes (3) Diabetes mellitus type 2 in nonobese Is this a current diagnosis for this admission?: Yes (4) History of lung or bronchial cancer Is this a current diagnosis for this admission?: Yes - Assessment Summary: Patient is admitted to the medical floor where he will be receiving the usual supportive and symptomatic cares. He will be treated with an aggressive pulmonary toilet utilizing nebulized Xopenex, Atrovent and Pulmicort. He will receive IV Solu-Medrol and a brief series dosing. He will receive supplemental oxygen and supplemental noninvasive airway pressure support as required to maintain an adequate oxygen saturation level of greater than 93%. He will be continued on his usual medications for his chronic medical problems as appropriate. He will be on AC at at bedtime Accu-Cheks with a sliding scale insulin for hyperglycemia and a hypoglycemic protocol in place. Hemoglobin A1c will be obtained. Serial determinations of his CBC, metabolic profile and magnesium levels will be obtained at appropriate intervals. Ativan 0.5 mg IV every 4 hours will be administered as needed for anxiety that may be associated with use of noninvasive airway pressure support devices. - Additional Information Resuscitation Status: Full Code Discharge Diet: Cardiac, Diabetic Discharge Activity: Balance Activity w/Rest, Slowly Increase Activity Referrals: [facility] [place] [Other] - 11/17/19 2:15 pm Prescriptions: Blood-Glucose Meter [Blood Glucose Meter] 1 unit MC BIDACBS #1 unit Syringe and Needle,Insulin,1Ml [Insulin Syringe] 1 each BID #60 disp.syrin Insulin Glargine,Hum.rec.anlog [Lantus Insulin 100 Unit/1 ml 10 ml] 15 unit SUBCUT Q12 #1 bottle Levofloxacin [Levaquin 500 mg Tablet] 500 mg PO DAILY #5 tablet Blood Sugar Diagnostic [Test Strips] 1 each MC BIDACBS #60 strip Home Medications: Bupropion HCl [Bupropion Xl] 150 mg PO Q12 11/05/19 Ipratropium/Albuterol Sulfate [Combivent Respimat 4 gm Mdi] 1 - 2 puff IH TIDHS 11/05/19 Lisinopril [Prinivil 10 mg Tablet] 10 mg PO DAILY 11/05/19 Metoprolol Succinate [Toprol Xl 25 mg Tab.sr] 12.5 mg PO Q12 11/05/19 Oxycodone HCl 30 mg PO Q4HP PRN 11/05/19 Blood Sugar Diagnostic [Test Strips] 1 each BIDACBS #60 strip 11/08/19 Blood-Glucose Meter [Blood Glucose Meter] 1 unit BIDACBS #1 unit 11/08/19 Insulin Glargine,Hum.rec.anlog [Lantus Insulin 100 Unit/1 ml 10 ml] 15 unit SUBCUT Q12 #1 bottle 11/08/19 Levofloxacin [Levaquin 500 mg Tablet] 500 mg PO DAILY #5 tablet 11/08/19 Syringe and Needle,Insulin,1Ml [Insulin Syringe] 1 each BID #60 disp.syrin 11/08/19 History of Present Illiness History of Present Illness: RADHA TEJEDA is a 64 year old male who presented emergency room with a two- week history of dyspnea. He admits gradual worsening of his dyspnea over the last 2 weeks, with it becoming severe over the last 3 days. His dyspnea has been accompanied by wheezing and is made worse by exertion. He denies other associated or accompanying signs and symptoms. He admits prior similar episodes with previous exacerbations of his COPD. He has not identified any additional aggravating or ameliorating factors for his dyspnea. In the emergency room he was treated with CPAP and nebulizer therapies as well as IV Solu-Medrol. He was subsequently admitted to the hospital for further evaluation treatment. Hospital Course Hospital Course: His blood sugars were extremely high so after he left the ER we decided to try to see if we get his bronchospasm to break without use of steroids. Fortunately, he responded very well. We are going to send him home with a few days of antibiotics, and he says that he has a nebulizer and medications for COPD at home. He was comfortable on room air and was able to ambulate without getting too short of breath on room air. He has follow-up with oncology. We started him on some Lantus twice a day and gave him a prescription for this along with needles, syringes, a glucose meter and test strips, and encouraged him to document his blood sugars before breakfast and before his evening meal and to take this information to his primary care provider at his follow-up so that they will be able to further adjust his regimen. His labs and examination were reassuring and he was discharged in stable condition. He also has close oncology follow-up. Physical Exam Vital Signs: Temp Pulse Resp BP Pulse Ox 98.6 F 80 16 121/69 100 11/08/19 13:50 11/08/19 13:50 11/08/19 13:50 11/08/19 13:50 11/08/19 13:50 Intake & Output 11/07/19 11/08/19 11/09/19 06:59 06:59 06:59 Intake Total 1915 2160 476 Balance 1915 2160 476 Weight 68.1 kg 67.8 kg General appearance: PRESENT: no acute distress, cooperative, disheveled Respiratory exam: PRESENT: decreased breath sounds, prolonged expiratory phas, symmetrical, unlabored. ABSENT: accessory muscle use, chest wall tenderness, crackles, rhonchi, tachypnea, wheezes Cardiovascular exam: PRESENT: RRR, +S1, +S2 Pulses: PRESENT: normal carotid pulses Vascular exam: PRESENT: normal capillary refill GI/Abdominal exam: PRESENT: normal bowel sounds, soft. ABSENT: distended, guarding, rebound, tenderness Extremities exam: ABSENT: clubbing, pedal edema Musculoskeletal exam: PRESENT: normal inspection. ABSENT: deformity Neurological exam: PRESENT: alert, awake, oriented to person, oriented to place, oriented to situation Psychiatric exam: PRESENT: appropriate affect, normal mood Skin exam: PRESENT: dry, warm Results Laboratory Results: WBC 9.8 10^3/uL (4.0-10.5) 11/08/19 06:22 RBC 5.28 10^6/uL (4.35-5.55) 11/08/19 06:22 Hgb 15.3 g/dL (13.5-17.0) 11/08/19 06:22 Hct 44.9 % (37.9-51.0) 11/08/19 06:22 MCV 85 fl (80-97) 11/08/19 06:22 MCH 29.0 pg (27.0-33.4) 11/08/19 06:22 MCHC 34.1 g/dL (32.0-36.0) 11/08/19 06:22 RDW 14.5 % (11.5-14.0) H 11/08/19 06:22 Plt Count 209 10^3/uL (150-450) 11/08/19 06:22 Lymph % (Auto) 18.2 % (13-45) 11/05/19 02:08 Graham % (Auto) 5.8 % (3-13) 11/05/19 02:08 Eos % (Auto) 2.6 % (0-6) 11/05/19 02:08 Baso % (Auto) 0.7 % (0-2) 11/05/19 02:08 Absolute Neuts (auto) 6.6 10^3/uL (1.7-8.2) 11/05/19 02:08 Absolute Lymphs (auto) 1.7 10^3/uL (0.5-4.7) 11/05/19 02:08 Absolute Monos (auto) 0.5 10^3/uL (0.1-1.4) 11/05/19 02:08 Absolute Eos (auto) 0.2 10^3/uL (0.0-0.6) 11/05/19 02:08 Absolute Basos (auto) 0.1 10^3/uL (0.0-0.2) 11/05/19 02:08 Seg Neutrophils % 72.7 % (42-78) 11/05/19 02:08 PT 12.3 SEC (11.4-15.4) 11/05/19 02:08 INR 0.92 11/05/19 02:08 Carbonic Acid 1.65 mmol/L (1.05-1.35) H 11/05/19 06:44 HCO3/H2CO3 Ratio 17:1 11/05/19 06:44 ABG pH 7.34 (7.35-7.45) L 11/05/19 06:44 ABG pCO2 54.7 mmHg (35-45) H 11/05/19 06:44 ABG pO2 107.9 mmHg (80-100) H 11/05/19 06:44 ABG HCO3 28.6 mmol/L (20-24) H 11/05/19 06:44 ABG Total CO2 30.3 mmol/L (23-27) H 11/05/19 06:44 ABG O2 Saturation 97.6 % (94-98) 11/05/19 06:44 ABG Base Excess 1.4 mmol/L 11/05/19 06:44 VBG pH 7.36 (7.30-7.42) 11/05/19 02:08 VBG pCO2 59.0 mmHg (35-63) 11/05/19 02:08 VBG HCO3 32.3 mmol/L (20-32) H 11/05/19 02:08 VBG Base Excess 4.8 mmol/L 11/05/19 02:08 FiO2 30% 11/05/19 06:44 Sodium 132.1 mmol/L (137-145) L 11/06/19 04:08 Potassium 4.9 mmol/L (3.6-5.0) 11/06/19 04:08 Chloride 93 mmol/L (98-107) L 11/06/19 04:08 Carbon Dioxide 29 mmol/L (22-30) 11/06/19 04:08 Anion Gap 10 (5-19) 11/06/19 04:08 BUN 21 mg/dL (7-20) H 11/06/19 04:08 Creatinine 0.67 mg/dL (0.52-1.25) 11/06/19 04:08 Est GFR ( Amer) > 60 (>60) 11/06/19 04:08 Est GFR (MDRD) Non-Af > 60 (>60) 11/06/19 04:08 Glucose 489 mg/dL (75-110) H* 11/06/19 04:08 POC Glucose 296 mg/dL (70-110) H 11/08/19 12:07 Hemoglobin A1c % 11.8 % (4.7-6.0) H 11/06/19 04:08 Lactic Acid (Sepsis) 0.9 mmol/L (0.7-2.1) 11/05/19 02:08 Calcium 8.7 mg/dL (8.4-10.2) 11/06/19 04:08 Magnesium 2.3 mg/dL (1.6-2.3) 11/06/19 04:08 Total Bilirubin 0.5 mg/dL (0.2-1.3) 11/05/19 02:08 Direct Bilirubin 0.2 mg/dL (0.0-0.4) 11/05/19 02:08 Neonat Total Bilirubin Not Reportable 11/05/19 02:08 Neonat Direct Bilirubin Not Reportable 11/05/19 02:08 Neonat Indirect Bili Not Reportable 11/05/19 02:08 AST 15 U/L (17-59) L 11/05/19 02:08 ALT 18 U/L (<50) 11/05/19 02:08 Alkaline Phosphatase 143 U/L (38-126) H 11/05/19 02:08 Troponin I 0.029 ng/mL 11/05/19 02:08 Total Protein 6.9 g/dL (6.3-8.2) 11/05/19 02:08 Albumin 4.0 g/dL (3.5-5.0) 11/05/19 02:08 TSH 0.18 uIU/mL (0.47-4.68) L 11/06/19 04:08 Urine Color STRAW 11/05/19 04:28 Urine Appearance CLEAR 11/05/19 04:28 Urine pH 6.0 (5.0-9.0) 11/05/19 04:28 Ur Specific [place] 1.021 11/05/19 04:28 Urine Protein NEGATIVE mg/dL (NEGATIVE) 11/05/19 04:28 Urine Glucose (UA) >=500 mg/dL (NEGATIVE) H 11/05/19 04:28 Urine Ketones NEGATIVE mg/dL (NEGATIVE) 11/05/19 04:28 Urine Blood NEGATIVE (NEGATIVE) 11/05/19 04:28 Urine Nitrite (Reflex) NEGATIVE (NEGATIVE) 11/05/19 04:28 Urine Bilirubin NEGATIVE (NEGATIVE) 11/05/19 04:28 Urine Urobilinogen NEGATIVE mg/dL (<2.0) 11/05/19 04:28 Leukocyte Esterase Rfl NEGATIVE (NEGATIVE) 11/05/19 04:28 Urine RBC (Auto) 0 /HPF 11/05/19 04:28 U Hyaline Cast (Auto) 1 /LPF 11/05/19 04:28 Urine WBC (Reflex) 1 /HPF 11/05/19 04:28 Urine Mucus (Auto) RARE /LPF 11/05/19 04:28 Urine Ascorbic Acid NEGATIVE (NEGATIVE) 11/05/19 04:28 11/05/19 02:08 Troponin I 0.029 Impressions: Chest X-Ray 11/05/19 02:18 IMPRESSION: 1. Vague parenchymal opacity projecting over the posterior aspect of the left 5th rib. 2. Hyperinflation of the lungs. 3. Right IJ central venous catheter tip overlies the region of the superior vena cava. 4. Otherwise, the lungs are clear. The abnormalities noted on the prior chest CT are not well visualized on this examination. Plan Time Spent: Greater than 30 Minutes Stroke Is this a Stroke Patient?: No Acute Heart Failure - Is this a Heart Failure Patient?: No
== END 2019-11-08 14:40 | disposition home or self-care (01) | DRG 190 ==
LOC: ER 01:48 → EH 06:18 → 5 14:00
PROVIDERS: ADMIT Emergency Medicine; ATTEND Emergency Medicine
PROC: 5A09357 Assistance with Respiratory Ventilation, Less than 24 Consecutive Hours, Continuous Positive Airway Pressure (ICD-10-PCS; principal; 2019-11-05)
DX: J44.1 Chronic obstructive pulmonary disease with (acute) exacerbation (principal); J96.01 Acute respiratory failure with hypoxia; E11.9 Type 2 diabetes mellitus without complications; I10 Essential (primary) hypertension; M19.90 Unspecified osteoarthritis, unspecified site; M10.9 Gout, unspecified; M54.9 Dorsalgia, unspecified; G89.29 Other chronic pain; G47.00 Insomnia, unspecified; Z85.118 Personal history of other malignant neoplasm of bronchus and lung; Z79.4 Long term (current) use of insulin; Z87.891 Personal history of nicotine dependence; Z98.1 Arthrodesis status; Z91.14 Patient's other noncompliance with medication regimen; Z88.4 Allergy status to anesthetic agent; Z88.8 Allergy status to other drugs, medicaments and biological substances; Z82.49 Family history of ischemic heart disease and other diseases of the circulatory system; Z83.3 Family history of diabetes mellitus; Z80.9 Family history of malignant neoplasm, unspecified
CPT/HCPCS: 36415; 71045; 80048; 80053; 81001; 82803; 82962; 83036; 83605; 83735; 84443; 84484; 85025; 85027; 85610; 87040; 93005; 93010; 94660; 99291; J1644; J1815; J2270; J2920; J3490; J7620

== ENCOUNTER 2019-11-15 01:52 | Inpatient (IN) | payer MEDICARE, OTHER ==
[2019-11-15] MEDS ORDERED: IPRATROPIUM/ALBUTEROL 0.5-2.5 MG/3 ML AMPUL NEB ONE (02:29)
[2019-11-15 02:39] LABS: ABSOLUTE BASOPHILS # (AUTO) 0.1 10^3/uL (0.0-0.2); ABSOLUTE EOSINOPHILS # (AUTO) 0.3 10^3/uL (0.0-0.6); ABSOLUTE LYMPHOCYTES (AUTO) 1.6 10^3/uL (0.5-4.7); ABSOLUTE MONOCYTES (AUTO) 0.6 10^3/uL (0.1-1.4); BASOPHILS % (AUTO) 0.9 % (0-2); EOSINOPHILS % (AUTO) 2.8 % (0-6); LYMPHOCYTES % (AUTO) 16.5 % (13-45); MEAN CORPUSCULAR HEMOGLOBIN 29.5 pg (27.0-33.4); MEAN CORPUSCULAR HGB CONC 34.2 g/dL (32.0-36.0); MEAN CORPUSCULAR VOLUME 86 fl (80-97); MONOCYTES % (AUTO) 6.2 % (3-13); PLATELET COUNT 227 10^3/uL (150-450); RED BLOOD COUNT 5.11 10^6/uL (4.35-5.55); RED CELL DISTRIBUTION WIDTH 14.4 % (11.5-14.0); SEGMENTED NEUTROPHILS % (AUTO) 73.6 % (42-78); TOTAL CELLS COUNTED % (AUTO) 100 %; WHITE BLOOD COUNT 9.5 10^3/uL (4.0-10.5)
--- NOTE | 2019-11-15 02:39 | ER Document Report ---
ED General - General Chief Complaint: Respiratory Distress Stated Complaint: DIFFICULTY BREATHING Time Seen by Provider: 11/15/19 02:14 Primary Care Provider: VÍCTOR DELGADILLO NP-C [Primary Care Provider] - Follow up as needed TRAVEL OUTSIDE OF THE [place] IN LAST 30 DAYS: No - HPI Notes: This is a 64-year-old gentleman with a history of COPD who presents with a complaint of cough, congestion, dyspnea for the past several weeks. Patient states his had intermittent worsening of his COPD over the past few weeks. Today, he was going to the bathroom when he got more dyspneic. He states he took to the office neb treatment at home and was not feeling any better so he called EMS. EMS reports that he was hypoxic with sats in the 70s. He was given 2 DuoNeb's, Solu-Medrol 125 mg IV, and 2 g of magnesium intravenously by EMS. He did better but was still retracting so he was put on CPAP by EMS. He denies any fever or chills. He denies any chest pain. He describes his symptoms as moderate. Symptoms seem to be improved with the neb treatments and steroids given by EMS. - Related Data Allergies/Adverse Reactions: epinephrine [Epinephrine] Allergy (Severe, Verified 05/06/15 12:18) Tachycardia indomethacin [Indomethacin] Allergy (Severe, Verified 05/06/15 12:18) GI BLEED Past Medical History - Social History Smoking Status: Unknown if Ever Smoked Family History: CAD, Other - Alzheimer's dementia. denies: DM, Hypertension, Malignancy Patient has suicidal ideation: No Patient has homicidal ideation: No - Past Medical History Cardiac Medical History: Reports: Hx Hypertension, Hx Heart Murmur Denies: Hx Atrial Fibrillation, Hx Congestive Heart Failure, Hx Coronary Artery Disease, Hx Heart Attack, Hx Hypercholesterolemia Pulmonary Medical History: Reports: Hx Asthma, Hx Bronchitis, Hx Pneumonia - many years ago (15-20 yrs ago), Hx Respiratory Failure Denies: Hx COPD Neurological Medical History: Denies: Hx Cerebrovascular Accident, Hx Seizures Endocrine Medical History: Reports: Hx Diabetes Mellitus Type 2. Denies: Hx Diabetes Mellitus Type 1, Hx Hyperthyroidism, Hx Hypothyroidism Malignancy Medical History: Reports Hx Lung Cancer GI Medical History: Denies: Hx Cirrhosis, Hx Crohn's Disease, Hx Hepatitis, Hx Ulcerative Colitis Musculoskeletal Medical History: Reports Hx Arthritis - Multiple joints, Reports Hx Gout Skin Medical History: Denies Hx Eczema, Denies Hx Psoriasis Psychiatric Medical History: Reports: Hx Depression Infectious Medical History: Denies: Hx Hepatitis Past Surgical History: Reports: Hx Orthopedic Surgery - Cervical spine fusion, Other - Bronchoscopies with biopsy - Immunizations Hx Diphtheria, Pertussis, Tetanus Vaccination: No Hx Pneumococcal Vaccination: 08/22/19 Review of Systems - Review of Systems Constitutional: denies: Fever Cardiovascular: denies: Chest pain Respiratory: Cough, Short of breath, Sputum, Wheezing Gastrointestinal: denies: Abdominal pain -: Yes All other systems reviewed and negative Physical Exam - Vital signs Vitals: Pulse Ox 100 11/15/19 01:54 Interpretation: Normal - General General appearance: Alert In distress: Mild - Respiratory Respiratory status: Respiratory distress Chest status: Accessory muscle use Breath sounds: Wheezing Chest palpation: Normal - Cardiovascular Rhythm: Regular Heart sounds: Normal auscultation Murmur: No - Abdominal Inspection: Normal Distension: No distension Bowel sounds: Normal Tenderness: Nontender Organomegaly: No organomegaly - Extremities General upper extremity: Normal inspection. No: Tender, Edema - Neurological Neuro grossly intact: Yes Cognition: Normal Orientation: AAOx4 [place] Coma Scale Eye Opening: Spontaneous [place] Coma Scale Verbal: Oriented Cindy Coma Scale Motor: Obeys Commands Cindy Coma Scale Total: 15 Speech: Normal Motor strength normal: LUE, RUE, LLE, RLE Sensory: Normal Course - Re-evaluation Re-evalutation: 11/15/19 02:39 Differential diagnosis includes COPD exacerbation versus pneumonia. Patient has better received Solu-Medrol and magnesium per EMS. We will give him another DuoNeb since he still wheezing. 11/15/19 03:57 Patient reevaluated. He is doing better. Still has some wheezing. Given his oxygen requirement, he will need to be admitted. 11/15/19 04:06 Patient's care discussed with Dr. Blank. Will admit. - Vital Signs Vital signs: Temp Pulse Resp BP Pulse Ox 12 100/62 96 11/15/19 03:01 11/15/19 03:01 11/15/19 03:01 - Laboratory Result Diagrams: 11/15/19 02:03 11/15/19 02:03 Laboratory results interpreted by me: 11/15/19 11/15/19 11/15/19 02:03 02:03 02:40 RDW 14.4 H Carbonic Acid 1.68 H ABG pH 7.29 L ABG pCO2 55.8 H ABG pO2 110.6 H ABG HCO3 26.5 H ABG Total CO2 28.2 H Sodium 133.3 L Chloride 96 L Glucose 399 H AST 65 H Discharge - Discharge Clinical Impression: COPD with acute exacerbation Condition: Fair Disposition: ADMITTED INPATIENT Admitting Provider: Rosamaria (Hospitalist) Unit Admitted: Medical Floor Referrals: VÍCTOR DELGADILLO NP-C [Primary Care Provider] - Follow up as needed
[2019-11-15 02:45] LABS: ALKALINE PHOSPHATASE 121 U/L (38-126); ANION GAP 8 (5-19); ASPARTATE AMINO TRANSFERASE 65 U/L (17-59); BILIRUBIN,DIRECT 0.2 mg/dL (0.0-0.4); BILIRUBIN,TOTAL 0.4 mg/dL (0.2-1.3); BLOOD UREA NITROGEN 15 mg/dL (7-20); CALCIUM 8.8 mg/dL (8.4-10.2); CARBON DIOXIDE 29 mmol/L (22-30); CHLORIDE 96 mmol/L (98-107); POTASSIUM 4.8 mmol/L (3.6-5.0); TOTAL PROTEIN 6.7 g/dL (6.3-8.2)
[2019-11-15 02:53] LABS: GLUCOSE 399 mg/dL (75-110)
[2019-11-15 03:11] LABS: ARTERIAL BLOOD BASE EXCESS -1.2 mmol/L; ARTERIAL BLOOD H2CO3 1.68 mmol/L (1.05-1.35); ARTERIAL BLOOD HCO3 26.5 mmol/L (20-24); ARTERIAL BLOOD O2 SATURATION 97.5 % (94-98); ARTERIAL BLOOD PCO2 55.8 mmHg (35-45); ARTERIAL BLOOD PH 7.29 (7.35-7.45); ARTERIAL BLOOD PO2 110.6 mmHg (80-100); ARTERIAL BLOOD TOTAL CO2 28.2 mmol/L (23-27)
[2019-11-15 03:12] LABS: ARTERIAL BLOOD FIO2 30%
--- NOTE | 2019-11-15 03:33 | RADIOLOGY REPORT (SQ) ---
EXAM DESCRIPTION: XR CHEST 1 VIEW COMPLETED DATE/TME: 11/15/2019 02:26 CLINICAL HISTORY: 64 years, Male, dyspnea COMPARISON: 11/05/2019 chest NUMBER OF VIEWS: 1 TECHNIQUE: Portable chest LIMITATIONS: None. FINDINGS: The heart size is stable. Osteopenia. [id number] catheter in place. COPD. Stable nodular density in the left upper lobe. Calcified granuloma in the right apex.. No pneumothorax. Atheromatous change thoracic aorta IMPRESSION: No acute cardiopulmonary process. copyright 2010 [email or web address]- All Rights Reserved
[2019-11-15] MEDS ORDERED: MAGNESIUM HYDROXIDE SUSP 30 ML UDCUP PO PRN (04:40)
[2019-11-15] MEDS ORDERED: MAG HYDROX/AL HYDROX/SIMETH SUSP 30 ML UDCUP PO PRN (04:40)
[2019-11-15] MEDS ORDERED: ONDANSETRON HCL INJ/PF 4 MG/2 ML SDV IV PRN (04:40)
[2019-11-15] MEDS ORDERED: ACETAMINOPHEN 325 MG TABLET PO PRN (04:44)
[2019-11-15] MEDS ORDERED: DEXTROSE 50%-WATER 25 GM/50 ML DISP.SYRIN IV PRN ×2 (04:46)
[2019-11-15] MEDS ORDERED: DEXTROSE 40% GEL 15 GM TUBE PO PRN ×2 (04:46)
[2019-11-15] MEDS ORDERED: GLUCAGON,HUMAN RECOMB 1 MG INJ IM PRN (04:46)
[2019-11-15] MEDS: HEPARIN SOD (PORCINE) 5,000 UNIT/ML 1 ML VIAL SUBCUT SCH ×3 (05:52→22:10)
[2019-11-15] MEDS: METHYLPREDNISOLONE INJ 40 MG/1 ML SDV IV SCH ×3 (05:52→17:26)
--- NOTE | 2019-11-15 06:04 | PDOC H&P ---
History of Present Illness Admission Date/PCP: 11/15/19 04:09 [facility] Patient complains of: Dyspnea History of Present Illness: RADHA LEYVA is a 64 year old male who presented to the emergency room with a 3-week history of dyspnea. He admits dyspnea which has waxed and waned and severity over the last several weeks including a previous admission earlier this month. His dyspnea has been accompanied by a nonproductive cough and is worsened with exertion. He developed sudden worsening of his dyspnea at home last night shortly before coming to the hospital when he was ambulating to the bathroom and suddenly became extremely dyspneic. He used his home nebulizer treatment without improvement and then contacted EMS. He denies other associated or accompanying signs and symptoms. He admits numerous prior similar episodes related to his COPD. He has not identified any additional aggravating or ameliorating factors for his dyspnea. EMS found him hypoxic with a oxygen saturation in the 70s on room air at his home. He was treated with Solu-Medrol and nebulizer therapy as well as 2 g of magnesium sulfate IV prior to his ER arrival. In the emergency room he was noted to be somewhat improved from his initial status reported by EMS however he continued to require noninvasive airway pressure support with BiPAP in order to maintain an adequate oxygen saturation. Patient was subsequently admitted to the hospital for further evaluation treatment. Past Medical History Cardiac Medical History: Reports: Hypertension, Heart Murmur Denies: Atrial Fibrillation, Congestive Heart Failure, Coronary Artery Disease, Myocardial Infarction, Hyperlipidema Pulmonary Medical History: Reports: Asthma, Bronchitis, Pneumonia - many years ago (15-20 yrs ago), Respiratory Failure Denies: Chronic Obstructive Pulmonary Disease (COPD) EENT Medical History: Denies: Cataracts, Ears - Hearing aids Neurological Medical History: Denies: Hemorrhagic CVA, Ischemic CVA, Seizures Endocrine Medical History: Reports: Diabetes Mellitus Type 2 Denies: Diabetes Mellitus Type 1, Hyperthyroidism, Hypothyroidism Renal/ Medical History: Denies: Chronic Kidney Disease, Nephrolithiasis Malignancy Medical History: Reports: Lung Cancer GI Medical History: Denies: Cirrhosis, Crohn's Disease, Hepatitis, Ulcerative Colitis Musculoskeltal Medical History: Reports: Arthritis - Multiple joints, Gout, Other - Chronic back pain Skin Medical History: Denies: Eczema, Psoriasis Psychiatric Medical History: Reports: Depression, Tobacco Dependency, Other - Insomnia Denies: Alcohol Dependency, Substance Abuse Traumatic Medical History: Reports: None Hematology: Denies: Anemia, Bleeding Tendencies Infectious Medical History: Reports: None Past Surgical History Past Surgical History: Reports: Orthopedic Surgery - Cervical spine fusion, Other - Bronchoscopies with biopsy Social History Information Source: Patient Lives with: Spouse/Significant other Smoking Status: Former Smoker Electronic Cigarette use?: No Frequency of Alcohol Use: None Hx Recreational Drug Use: No Drugs: None Hx Prescription Drug Abuse: No - Advance Directive Resuscitation Status: Full Code Surrogate healthcare decision maker:: Daniela Leyva Family History Family History: CAD, Other - Alzheimer's dementia. denies: DM, Hypertension, Malignancy Parental Family History Reviewed: Yes Children Family History Reviewed: No Sibling(s) Family History Reviewed.: Yes Medication/Allergy Home Medications: Bupropion HCl [Bupropion Xl] 150 mg PO Q12 11/05/19 Ipratropium/Albuterol Sulfate [Combivent Respimat 4 gm Mdi] 1 - 2 puff IH TIDHS 11/05/19 Lisinopril [Prinivil 10 mg Tablet] 10 mg PO DAILY 11/05/19 Metoprolol Succinate [Toprol Xl 25 mg Tab.sr] 12.5 mg PO Q12 11/05/19 Oxycodone HCl 30 mg PO Q4HP PRN 11/05/19 Blood Sugar Diagnostic [Blood Glucose Test] 1 each SUBCUT BID #60 strip 11/10/19 Blood-Glucose Meter [Blood Glucose Meter] 1 each SUBCUT Q12 #1 each 11/10/19 Insulin Glargine,Hum.rec.anlog [Lantus Insulin 100 Unit/1 ml 10 ml] 15 unit SUBCUT BID #1 bottle 11/10/19 Levofloxacin [Levaquin 500 mg Tablet] 500 mg PO DAILY #5 tablet 11/10/19 Syringe and Needle,Insulin,1Ml [Insulin Syringe] 1 each SUBCUT BID #60 disp.syrin 11/10/19 Allergies/Adverse Reactions: epinephrine [Epinephrine] Allergy (Severe, Verified 05/06/15 12:18) Tachycardia indomethacin [Indomethacin] Allergy (Severe, Verified 05/06/15 12:18) GI BLEED Review of Systems Constitutional: ABSENT: chills, fever(s) Eyes: ABSENT: visual disturbances, other - Ocular pain Ears: ABSENT: hearing changes, other - Ear pain Nose, Mouth, and Throat: ABSENT: headache(s), mouth pain, sore throat Cardiovascular: PRESENT: as per HPI, dyspnea on exertion. ABSENT: chest pain, edema, orthropnea, palpitations Respiratory: PRESENT: as per HPI, cough, dyspnea. ABSENT: hemoptysis, sputum Gastrointestinal: ABSENT: abdominal pain, constipation, diarrhea, nausea, v omiting Genitourinary: ABSENT: dysuria, hematuria Musculoskeletal: PRESENT: back pain - Chronic. ABSENT: joint swelling, muscle weakness Integumentary: ABSENT: pruritus, rash Neurological: ABSENT: confusion, convulsions, focal weakness, memory loss, syncope Psychiatric: ABSENT: anxiety, depression Endocrine: ABSENT: cold intolerance, heat intolerance Hematologic/Lymphatic: ABSENT: easy bleeding, easy bruising Allergic/Immunologic: ABSENT: seasonal rhinorrhea Physical Exam Vital Signs: Temp Pulse Resp BP Pulse Ox 12 100/62 96 11/15/19 03:01 11/15/19 03:01 11/15/19 03:01 General appearance: PRESENT: no acute distress, cooperative, other - On BiPAP Head exam: PRESENT: atraumatic, normocephalic Eye exam: PRESENT: conjunctiva pink. ABSENT: conjunctival injection, scleral icterus Ear exam: PRESENT: normal external ear exam. ABSENT: bleeding, drainage Mouth exam: PRESENT: dry mucosa, neck supple Neck exam: ABSENT: thyromegaly, tracheal deviation Respiratory exam: PRESENT: accessory muscle use - Mild accessory muscle use noted, prolonged expiratory phas - Moderately prolonged expiratory phase noted in all au, symmetrical, wheezes - Severe expiratory wheezes noted in all au, other - On BiPAP, speaks in 3-4 word sentences off BiPAP. Cardiovascular exam: PRESENT: RRR. ABSENT: clicks, gallop, rubs Pulses: PRESENT: normal radial pulses, normal dorsalis pedis pul Vascular exam: PRESENT: normal capillary refill. ABSENT: pallor GI/Abdominal exam: PRESENT: normal bowel sounds, soft Rectal exam: PRESENT: deferred Extremities exam: ABSENT: joint swelling, pedal edema Musculoskeletal exam: ABSENT: deformity, dislocation Neurological exam: PRESENT: alert, oriented to person, oriented to place, oriented to time, oriented to situation, CN II-XII grossly intact. ABSENT: motor sensory deficit Psychiatric exam: PRESENT: appropriate affect, normal mood Skin exam: PRESENT: dry, intact, warm. ABSENT: jaundice, rash, urticaria Results Laboratory Results: 11/15/19 02:03 11/15/19 02:03 11/15/19 11/15/19 11/15/19 02:03 02:03 02:03 WBC 9.5 RBC 5.11 Hgb 15.0 Hct 44.0 MCV 86 MCH 29.5 MCHC 34.2 RDW 14.4 H Plt Count 227 Seg Neutrophils % 73.6 Carbonic Acid HCO3/H2CO3 Ratio ABG pH ABG pCO2 ABG pO2 ABG HCO3 ABG O2 Saturation ABG Base Excess FiO2 Sodium 133.3 L Potassium 4.8 Chloride 96 L Carbon Dioxide 29 Anion Gap 8 BUN 15 Creatinine 0.64 Est GFR ( Amer) > 60 Glucose 399 H Lactic Acid 1.2 Calcium 8.8 Total Bilirubin 0.4 AST 65 H Alkaline Phosphatase 121 Total Protein 6.7 Albumin 4.0 11/15/19 02:40 WBC RBC Hgb Hct MCV MCH MCHC RDW Plt Count Seg Neutrophils % Carbonic Acid 1.68 H HCO3/H2CO3 Ratio 15:1 ABG pH 7.29 L ABG pCO2 55.8 H ABG pO2 110.6 H ABG HCO3 26.5 H ABG O2 Saturation 97.5 ABG Base Excess -1.2 FiO2 30% Sodium Potassium Chloride Carbon Dioxide Anion Gap BUN Creatinine Est GFR ( Amer) Glucose Lactic Acid Calcium Total Bilirubin AST Alkaline Phosphatase Total Protein Albumin 11/15/19 02:03 Troponin I 0.017 Impressions: Chest X-Ray 11/15/19 02:26 IMPRESSION: No acute cardiopulmonary process. copyright 2010 [employer]- All Rights Reserved Assessment and Plan - Diagnosis (1) COPD with acute exacerbation Is this a current diagnosis for this admission?: Yes (2) Acute respiratory failure with hypoxia Is this a current diagnosis for this admission?: Yes (3) Diabetes mellitus type 2 in nonobese Is this a current diagnosis for this admission?: Yes (4) Essential hypertension Is this a current diagnosis for this admission?: Yes (5) Chronic upper back pain Is this a current diagnosis for this admission?: Yes (6) History of lung or bronchial cancer Is this a current diagnosis for this admission?: Yes - Plan Summary Summary: Patient be admitted to the medical service on the medical floor where he will receive routine supportive and symptomatic cares. He will be treated aggressively with a pulmonary toilet utilizing Pulmicort, Xopenex and Atrovent delivered via nebulizer. He will also receive IV Solu-Medrol. He will receive supplemental oxygen via noninvasive airway pressure devices or other means as necessary to assure adequate oxygenation and a O2 sat monitor of 90 to 94%. CBCs and basic metabolic profiles will be performed as needed. Patient be continued on his usual home medications once his medication reconciliation has been completed. - Time Time Spent with patient: Less than 15 minutes Medications reviewed and adjusted accordingly: Yes Anticipated discharge: Home - Inpatient Certification Based on my medical assessment, after consideration of the patient's comorbidities, presenting symptoms, or acuity I expect that the services needed warrant INPATIENT care.: Yes I certify that my determination is in accordance with my understanding of Medicare's requirements for reasonable and necessary INPATIENT services [42 CFR 412.3e].: Yes Medical Necessity: Failure to Improve With Outpatient Therapy, Need Close Monitoring Due to Risk of Patient Decompensation, Need for Nebulizer Therapy and Monitoring of Response
[2019-11-15] MEDS: OXYCODONE HCL IR 5 MG TABLET PO PRN ×4 (06:10→18:55)
[2019-11-15 06:47] LABS: ARTERIAL BLOOD HCO3 31.1 mmol/L (20-24); ARTERIAL BLOOD O2 SATURATION 98.2 % (94-98); ARTERIAL BLOOD PCO2 56.5 mmHg (35-45); ARTERIAL BLOOD PH 7.36 (7.35-7.45); ARTERIAL BLOOD PO2 121.2 mmHg (80-100); ARTERIAL BLOOD TOTAL CO2 32.8 mmol/L (23-27)
[2019-11-15 06:50] LABS: ARTERIAL BLOOD FIO2 3L
[2019-11-15] MEDS: LEVALBUTEROL HCL NEB 1.25 MG/3 ML AMPUL NEB SCH ×3 (07:47→23:57)
[2019-11-15] MEDS: IPRATROPIUM BROMIDE 0.02% NEB 0.5 MG/2.5 ML AMPUL NEB SCH ×3 (07:47→23:57)
[2019-11-15] MEDS: BUDESONIDE NEB 0.5 MG/2 ML AMPUL NEB SCH ×2 (07:47→20:12)
[2019-11-15] MEDS: INSULIN REG, HUMAN 100 UNIT/ML 3 ML VIAL (PYX) SUBCUT SCH ×4 (08:12→22:10)
[2019-11-15] MEDS: FAMOTIDINE 20 MG TABLET PO SCH ×2 (09:34→22:10)
[2019-11-15] MEDS: DOCUSATE SODIUM 100 MG CAPSULE PO SCH ×2 (09:34→17:20)
--- NOTE | 2019-11-15 09:57 | Progress Note ---
Provider Note Provider Note: 11/15/2019 Patient admitted early this morning around 0 400 for apparent COPD exacerbation. Temperature 98, pulse 104, blood pressure 133/70, O2 sat 100% on 2 L nasal cannula. He was just recently in the hospital for the same problem. Chest x-ray is negative glucose is elevated around 400, white count 9.5 blood cultures are pending.. Patient currently using BiPAP as needed. Patient on Solu-Medrol 40 mg IV every 6 Currently no antibiotics which I agree with at this time, pending blood cultures Patient appears medically stable. Patient has been seen at pain management for approximately 4 years now due to his lung cancer. Patient seems to be well controlled but takes his pain medicine every 4 hours not PRN
--- NOTE | 2019-11-15 20:09 | EKG REPORT ---
SEVERITY:- ABNORMAL ECG - SINUS TACHYCARDIA RBBB AND LPFB : Confirmed by: Pricila Holden MD 15-Nov-2019 20:08:55
--- NOTE | 2019-11-15 20:09 | EKG REPORT ---
SEVERITY:- ABNORMAL ECG - SINUS RHYTHM RIGHT BUNDLE BRANCH BLOCK : Confirmed by: Pricila Holden MD 15-Nov-2019 20:08:41
[2019-11-16] MEDS: OXYCODONE HCL IR 5 MG TABLET PO PRN ×5 (00:07→21:36)
[2019-11-16 05:25] LABS: HEMATOCRIT 42.5 % (37.9-51.0); HEMOGLOBIN 14.7 g/dL (13.5-17.0); MEAN CORPUSCULAR HEMOGLOBIN 29.5 pg (27.0-33.4); MEAN CORPUSCULAR HGB CONC 34.5 g/dL (32.0-36.0); MEAN CORPUSCULAR VOLUME 85 fl (80-97); PLATELET COUNT 235 10^3/uL (150-450); RED BLOOD COUNT 4.98 10^6/uL (4.35-5.55); RED CELL DISTRIBUTION WIDTH 14.5 % (11.5-14.0); WHITE BLOOD COUNT 14.1 10^3/uL (4.0-10.5)
[2019-11-16] MEDS: HEPARIN SOD (PORCINE) 5,000 UNIT/ML 1 ML VIAL SUBCUT SCH ×3 (05:26→21:37)
[2019-11-16 05:54] LABS: ANION GAP 10 (5-19); BLOOD UREA NITROGEN 14 mg/dL (7-20); CALCIUM 9.4 mg/dL (8.4-10.2); CARBON DIOXIDE 35 mmol/L (22-30); CHLORIDE 92 mmol/L (98-107); GLUCOSE 290 mg/dL (75-110); POTASSIUM 4.7 mmol/L (3.6-5.0)
[2019-11-16] MEDS: IPRATROPIUM BROMIDE 0.02% NEB 0.5 MG/2.5 ML AMPUL NEB SCH ×2 (08:29→16:13)
[2019-11-16] MEDS: BUDESONIDE NEB 0.5 MG/2 ML AMPUL NEB SCH ×2 (08:30→20:08)
[2019-11-16] MEDS: LEVALBUTEROL HCL NEB 1.25 MG/3 ML AMPUL NEB SCH ×2 (08:30→16:13)
[2019-11-16] MEDS: INSULIN REG, HUMAN 100 UNIT/ML 3 ML VIAL (PYX) SUBCUT SCH ×4 (08:43→21:37)
[2019-11-16] MEDS: FAMOTIDINE 20 MG TABLET PO SCH ×2 (09:56→21:37)
[2019-11-16] MEDS: DOCUSATE SODIUM 100 MG CAPSULE PO SCH ×2 (09:56→17:25)
[2019-11-16] MEDS: METHYLPREDNISOLONE INJ 40 MG/1 ML SDV IV SCH ×2 (13:18→21:38)
--- NOTE | 2019-11-16 13:27 | PDOC PROGRESS REPORT ---
Subjective Progress Note for:: 11/16/19 Reason For Visit: ACUTE EXACERBATION COPD,ACUTE RESPIRATORY FAILURE 11/16/2019 COPD exacerbation Physical Exam Vital Signs: Temp Pulse Resp BP Pulse Ox 97.4 F 96 11 L 132/51 H 95 11/16/19 00:08 11/16/19 08:30 11/16/19 08:30 11/16/19 00:08 11/16/19 08:30 Intake & Output 11/15/19 11/16/19 11/17/19 06:59 06:59 06:59 Intake Total 1190 Balance 1190 Weight 62.3 kg 62.8 kg General appearance: PRESENT: no acute distress, other - States he is breathing easier, feels better Respiratory exam: PRESENT: wheezes - Battered Cardiovascular exam: PRESENT: RRR. ABSENT: diastolic murmur, rubs, systolic mur mur Neurological exam: PRESENT: alert, awake, oriented to person, oriented to place, oriented to time, oriented to situation, CN II-XII grossly intact. ABSENT: motor sensory deficit Psychiatric exam: PRESENT: appropriate affect, normal mood. ABSENT: homicidal ideation, suicidal ideation Results Laboratory Results: 11/16/19 04:35 11/16/19 04:35 11/16/19 11/16/19 04:35 04:35 WBC 14.1 H RBC 4.98 Hgb 14.7 Hct 42.5 MCV 85 MCH 29.5 MCHC 34.5 RDW 14.5 H Plt Count 235 Sodium 136.8 L Potassium 4.7 Chloride 92 L Carbon Dioxide 35 H Anion Gap 10 BUN 14 Creatinine 0.77 Est GFR ( Amer) > 60 Glucose 290 H Calcium 9.4 Magnesium 2.2 11/15/19 02:03 Blood Blood Culture (PCR) - Final Staphylococcus Species 11/15/19 02:03 Troponin I 0.017 Impressions: Chest X-Ray 11/15/19 02:26 IMPRESSION: No acute cardiopulmonary process. copyright 2010 [employer]- All Rights Reserved Assessment and Plan - Diagnosis (1) COPD with acute exacerbation Is this a current diagnosis for this admission?: Yes (2) Diabetes mellitus type 2 in nonobese Is this a current diagnosis for this admission?: Yes (3) Essential hypertension Is this a current diagnosis for this admission?: Yes (4) History of lung or bronchial cancer Is this a current diagnosis for this admission?: Yes - Plan Summary Summary: Patient be admitted to the medical service on the medical floor where he will receive routine supportive and symptomatic cares. He will be treated aggressively with a pulmonary toilet utilizing Pulmicort, Xopenex and Atrovent delivered via nebulizer. He will also receive IV Solu-Medrol. He will receive supplemental oxygen via noninvasive airway pressure devices or other means as necessary to assure adequate oxygenation and a O2 sat monitor of 90 to 94%. C BCs and basic metabolic profiles will be performed as needed. Patient be continued on his usual home medications once his medication reconciliation has been completed. 11/16/2019 Blood cultures are positive for staph preliminary report O2 saturation today is between 95 and 100% either nasal cannula or BiPAP Heart rate is in the 90s, blood pressure approximately 132/51 early this morning White count on admission was 9.5 today is 14.1, electrolytes are basically normal glucose is running about 300 or slightly higher Today I have added Solu-Medrol 40 mg every 8 hours we will watch his glucose while on steroids Daughter tells me that he occasionally will cough up blood and is asked to put a PPD on him which I have ordered. Will probably be ready to be discharged in 2 to 3 days - Time Time Spent with patient: 25-34 minutes
[2019-11-16] MEDS: CEFTRIAXONE 2 GM/D5W RTU 2 GM/50 ML RTUPB IV SCH (14:22)
[2019-11-16] MEDS ORDERED: TUBERCULIN,PURIF.PROT.DERIV. 5 TU/0.1 ML TEST 1 ML VIAL ID ONE (15:00)
[2019-11-17] MEDS: LEVALBUTEROL HCL NEB 1.25 MG/3 ML AMPUL NEB SCH ×3 (00:34→16:04)
[2019-11-17] MEDS: IPRATROPIUM BROMIDE 0.02% NEB 0.5 MG/2.5 ML AMPUL NEB SCH ×3 (00:34→16:04)
[2019-11-17] MEDS: OXYCODONE HCL IR 5 MG TABLET PO PRN ×4 (01:58→18:51)
[2019-11-17 05:25] LABS: HEMATOCRIT 40.9 % (37.9-51.0); HEMOGLOBIN 13.9 g/dL (13.5-17.0); MEAN CORPUSCULAR HEMOGLOBIN 29.3 pg (27.0-33.4); MEAN CORPUSCULAR HGB CONC 34.1 g/dL (32.0-36.0); MEAN CORPUSCULAR VOLUME 86 fl (80-97); PLATELET COUNT 222 10^3/uL (150-450); RED BLOOD COUNT 4.75 10^6/uL (4.35-5.55); RED CELL DISTRIBUTION WIDTH 14.8 % (11.5-14.0); WHITE BLOOD COUNT 11.5 10^3/uL (4.0-10.5)
[2019-11-17] MEDS: HEPARIN SOD (PORCINE) 5,000 UNIT/ML 1 ML VIAL SUBCUT SCH ×3 (05:26→22:09)
[2019-11-17] MEDS: METHYLPREDNISOLONE INJ 40 MG/1 ML SDV IV SCH ×3 (05:26→22:09)
[2019-11-17] MEDS: BUDESONIDE NEB 0.5 MG/2 ML AMPUL NEB SCH ×2 (07:57→20:06)
[2019-11-17] MEDS: INSULIN REG, HUMAN 100 UNIT/ML 3 ML VIAL (PYX) SUBCUT SCH ×4 (08:32→22:10)
[2019-11-17] MEDS: CEFTRIAXONE 2 GM/D5W RTU 2 GM/50 ML RTUPB IV SCH (09:11)
[2019-11-17] MEDS: FAMOTIDINE 20 MG TABLET PO SCH ×2 (09:11→22:09)
[2019-11-17] MEDS: DOCUSATE SODIUM 100 MG CAPSULE PO SCH ×2 (09:11→17:37)
--- NOTE | 2019-11-17 17:56 | PDOC PROGRESS REPORT ---
Subjective Progress Note for:: 11/17/19 Reason For Visit: ACUTE EXACERBATION COPD,ACUTE RESPIRATORY FAILURE 11/17/2019 The COPD exacerbation Physical Exam Vital Signs: Temp Pulse Resp BP Pulse Ox 97.9 F 113 H 14 145/68 H 91 L 11/17/19 11:17 11/17/19 16:06 11/17/19 17:39 11/17/19 11:17 11/17/19 16:06 Intake & Output 11/16/19 11/17/19 11/18/19 06:59 06:59 06:59 Intake Total 1190 2200 50 Balance 1190 2200 50 Weight 62.8 kg 62.5 kg General appearance: PRESENT: no acute distress, other - Patient states he is breathing easier Respiratory exam: PRESENT: wheezes Cardiovascular exam: PRESENT: RRR. ABSENT: diastolic murmur, rubs, systolic mu rmur Neurological exam: PRESENT: alert, awake, oriented to person, oriented to place, oriented to time, oriented to situation, CN II-XII grossly intact. ABSENT: motor sensory deficit Psychiatric exam: PRESENT: appropriate affect, normal mood. ABSENT: homicidal ideation, suicidal ideation Results Laboratory Results: 11/17/19 04:25 11/16/19 04:35 11/17/19 04:25 WBC 11.5 H RBC 4.75 Hgb 13.9 Hct 40.9 MCV 86 MCH 29.3 MCHC 34.1 RDW 14.8 H Plt Count 222 11/15/19 02:03 Blood Blood Culture (PCR) - Final Staphylococcus Species 11/15/19 02:03 Troponin I 0.017 Impressions: Chest X-Ray 11/15/19 02:26 IMPRESSION: No acute cardiopulmonary process. copyright 2010 [employer]- All Rights Reserved Assessment and Plan - Diagnosis (1) COPD with acute exacerbation Is this a current diagnosis for this admission?: Yes (2) Diabetes mellitus type 2 in nonobese Is this a current diagnosis for this admission?: Yes (3) Essential hypertension Is this a current diagnosis for this admission?: Yes (4) History of lung or bronchial cancer Is this a current diagnosis for this admission?: Yes - Plan Summary Summary: Patient be admitted to the medical service on the medical floor where he will receive routine supportive and symptomatic cares. He will be treated aggressively with a pulmonary toilet utilizing Pulmicort, Xopenex and Atrovent delivered via nebulizer. He will also receive IV Solu-Medrol. He will receive supplemental oxygen via noninvasive airway pressure devices or other means as necessary to assure adequate oxygenation and a O2 sat monitor of 90 to 94%. CBCs and basic metabolic profiles will be performed as needed. Patient be continued on his usual home medications once his medication reconciliation has been completed. 11/16/2019 Blood cultures are positive for staph preliminary report O2 saturation today is between 95 and 100% either nasal cannula or BiPAP Heart rate is in the 90s, blood pressure approximately 132/51 early this morning White count on admission was 9.5 today is 14.1, electrolytes are basically normal glucose is running about 300 or slightly higher Today I have added Solu-Medrol 40 mg every 8 hours we will watch his glucose while on steroids Daughter tells me that he occasionally will cough up blood and is asked to put a PPD on him which I have ordered. Will probably be ready to be discharged in 2 to 3 days 11/17/2019 Temperature 98.2, pulse 90 blood pressure 138/70, O2 sat 97% 2 L nasal cannula WBCs stable 11.5 glucose is elevated at 300. Patient is currently on Rocephin and Solu-Medrol. - Time Time Spent with patient: 25-34 minutes
[2019-11-17] MEDS ORDERED: (PENDING PHARMACY ID) (Magnesium Oxide [Magnesium] 500 MG) PO SCH (18:00)
[2019-11-17] MEDS ORDERED: SAXAGLIPTIN HCL 2.5 MG PO SCH (18:00)
[2019-11-17] MEDS ORDERED: (PENDING PHARMACY ID) (Bupropion Hcl [Wellbutrin Xl 150 Mg 24hr Tablet] 150 MG) PO SCH (18:00)
[2019-11-17] MEDS: MONTELUKAST SODIUM 10 MG TABLET PO SCH (18:50)
[2019-11-17] MEDS: METOPROLOL SUCCINATE 25 MG TAB.SR.24H PO SCH (22:07)
[2019-11-17] MEDS: BUPROPION HCL 100 MG TABLET PO SCH (22:09)
[2019-11-17] MEDS: ATORVASTATIN CALCIUM 40 MG TABLET PO SCH (22:09)
[2019-11-17] MEDS: LISINOPRIL 10 MG TABLET PO SCH (22:19)
[2019-11-17] MEDS: FLUTICASONE PROPIONATE HFA 110 MCG/PUFF 12 GM MDI IH SCH (22:20)
[2019-11-17] MEDS: OXYCODONE HCL IR 5 MG TABLET PO SCH (22:55)
[2019-11-18] MEDS: IPRATROPIUM BROMIDE 0.02% NEB 0.5 MG/2.5 ML AMPUL NEB SCH ×3 (00:35→16:10)
[2019-11-18] MEDS: LEVALBUTEROL HCL NEB 1.25 MG/3 ML AMPUL NEB SCH ×3 (00:35→16:10)
[2019-11-18] MEDS: OXYCODONE HCL IR 5 MG TABLET PO SCH ×6 (02:48→22:12)
[2019-11-18] MEDS: HEPARIN SOD (PORCINE) 5,000 UNIT/ML 1 ML VIAL SUBCUT SCH ×3 (06:44→22:11)
[2019-11-18] MEDS: BUPROPION HCL 100 MG TABLET PO SCH ×3 (06:44→22:13)
[2019-11-18] MEDS: METHYLPREDNISOLONE INJ 40 MG/1 ML SDV IV SCH ×3 (06:44→22:11)
[2019-11-18 06:53] LABS: HEMATOCRIT 41.5 % (37.9-51.0); MEAN CORPUSCULAR HGB CONC 33.8 g/dL (32.0-36.0); MEAN CORPUSCULAR VOLUME 86 fl (80-97); PLATELET COUNT 235 10^3/uL (150-450); RED BLOOD COUNT 4.83 10^6/uL (4.35-5.55); RED CELL DISTRIBUTION WIDTH 14.9 % (11.5-14.0); WHITE BLOOD COUNT 12.9 10^3/uL (4.0-10.5)
[2019-11-18] MEDS: INSULIN REG, HUMAN 100 UNIT/ML 3 ML VIAL (PYX) SUBCUT SCH ×4 (07:50→22:11)
[2019-11-18] MEDS: BUDESONIDE NEB 0.5 MG/2 ML AMPUL NEB SCH ×2 (08:29→20:24)
[2019-11-18] MEDS: FLUTICASONE PROPIONATE HFA 110 MCG/PUFF 12 GM MDI IH SCH ×2 (10:49→17:03)
[2019-11-18] MEDS: FAMOTIDINE 20 MG TABLET PO SCH ×2 (10:50→22:13)
[2019-11-18] MEDS: METOPROLOL SUCCINATE 25 MG TAB.SR.24H PO SCH ×2 (10:50→22:13)
[2019-11-18] MEDS: ASPIRIN 81 MG TABLET, ENT COATED PO SCH (10:50)
[2019-11-18] MEDS: MAGNESIUM OXIDE 400 MG TABLET PO SCH ×2 (10:50→17:04)
[2019-11-18] MEDS: DOCUSATE SODIUM 100 MG CAPSULE PO SCH ×2 (10:51→17:04)
[2019-11-18] MEDS: SITAGLIPTIN PHOSPHATE 50 MG TABLET PO SCH (10:51)
[2019-11-18] MEDS: CEFTRIAXONE 2 GM/D5W RTU 2 GM/50 ML RTUPB IV SCH (10:53)
[2019-11-18] MEDS: LISINOPRIL 10 MG TABLET PO SCH (10:53)
--- NOTE | 2019-11-18 13:20 | PDOC PROGRESS REPORT ---
Subjective Progress Note for:: 11/18/19 Reason For Visit: ACUTE EXACERBATION COPD,ACUTE RESPIRATORY FAILURE 11/18/2019 COPD exacerbation Physical Exam Vital Signs: Temp Pulse Resp BP Pulse Ox 98.2 F 87 18 137/60 H 96 11/18/19 11:32 11/18/19 11:32 11/18/19 11:32 11/18/19 11:32 11/18/19 11:32 Intake & Output 11/17/19 11/18/19 11/19/19 06:59 06:59 06:59 Intake Total 2200 2326 350 Balance 2200 2326 350 Weight 62.5 kg 62.3 kg General appearance: PRESENT: no acute distress, other - She states he is feeling much better Respiratory exam: PRESENT: rhonchi Cardiovascular exam: PRESENT: RRR. ABSENT: diastolic murmur, rubs, systolic murmur Neurological exam: PRESENT: alert, awake, oriented to person, oriented to place, oriented to time, oriented to situation, CN II-XII grossly intact. ABSENT: motor sensory deficit Psychiatric exam: PRESENT: appropriate affect, normal mood. ABSENT: homicidal ideation, suicidal ideation Results Laboratory Results: 11/18/19 06:25 11/16/19 04:35 11/18/19 06:25 WBC 12.9 H RBC 4.83 Hgb 14.0 Hct 41.5 MCV 86 MCH 29.0 MCHC 33.8 RDW 14.9 H Plt Count 235 11/15/19 02:03 Blood Blood Culture (PCR) - Final Staphylococcus Species 11/15/19 02:03 Troponin I 0.017 Impressions: Chest X-Ray 11/15/19 02:26 IMPRESSION: No acute cardiopulmonary process. copyright 2010 [employer]- All Rights Reserved Assessment and Plan - Diagnosis (1) COPD with acute exacerbation Is this a current diagnosis for this admission?: Yes (2) Diabetes mellitus type 2 in nonobese Is this a current diagnosis for this admission?: Yes (3) Essential hypertension Is this a current diagnosis for this admission?: Yes (4) History of lung or bronchial cancer Is this a current diagnosis for this admission?: Yes - Plan Summary Summary: Patient be admitted to the medical service on the medical floor where he will receive routine supportive and symptomatic cares. He will be treated aggressively with a pulmonary toilet utilizing Pulmicort, Xopenex and Atrovent delivered via nebulizer. He will also receive IV Solu-Medrol. He will receive supplemental oxygen via noninvasive airway pressure devices or other means as necessary to assure adequate oxygenation and a O2 sat monitor of 90 to 94%. CBCs and basic metabolic profiles will be performed as needed. Patient be continued on his usual home medications once his medication reconciliation has been completed. 11/16/2019 Blood cultures are positive for staph preliminary report O2 saturation today is between 95 and 100% either nasal cannula or BiPAP Heart rate is in the 90s, blood pressure approximately 132/51 early this morning White count on admission was 9.5 today is 14.1, electrolytes are basically normal glucose is running about 300 or slightly higher Today I have added Solu-Medrol 40 mg every 8 hours we will watch his glucose while on steroids Daughter tells me that he occasionally will cough up blood and is asked to put a PPD on him which I have ordered. Will probably be ready to be discharged in 2 to 3 days 11/17/2019 Temperature 98.2, pulse 90 blood pressure 138/70, O2 sat 97% 2 L nasal cannula WBCs stable 11.5 glucose is elevated at 300. Patient is currently on Rocephin and Solu-Medrol. Patient's home meds have been resumed, patient is a known diabetic Patient does have a heart murmur which he has been told about in the past She is making good improvement, anticipate discharge home and 24 to 48 hours 11/18/2019 Respiratory therapy and I discussed the case today. It appears as though some of the personnel have been turning up his oxygen 4 L switching this patient with COPD was contraindicated regular write an order for the O2 to not be above 2 L. Patient is maintaining his sats well at this setting in the upper 90s Blood pressure 137/60 pulse 87 and regular Count is stable 12.9 patient is on steroids Sugars are still running slightly high in the 300s. Going to check a hemoglobin A1c. Even when he came in his blood sugars were elevated in the 300s on no steroids 1 blood cultures growing out staph another blood cultures negative after 72 hours Patient currently on Rocephin Patient states he is feeling better - Time Time Spent with patient: 25-34 minutes
[2019-11-18] MEDS: MONTELUKAST SODIUM 10 MG TABLET PO SCH (17:04)
[2019-11-18] MEDS: LEVALBUTEROL HCL NEB 0.63 MG/3 ML AMPUL NEB PRN (20:24)
[2019-11-18] MEDS: ATORVASTATIN CALCIUM 40 MG TABLET PO SCH (22:13)
[2019-11-19] MEDS: LEVALBUTEROL HCL NEB 1.25 MG/3 ML AMPUL NEB SCH ×4 (00:11→23:59)
[2019-11-19] MEDS: IPRATROPIUM BROMIDE 0.02% NEB 0.5 MG/2.5 ML AMPUL NEB SCH ×4 (00:11→23:59)
[2019-11-19] MEDS: OXYCODONE HCL IR 5 MG TABLET PO SCH ×6 (03:08→21:59)
[2019-11-19] MEDS: METHYLPREDNISOLONE INJ 40 MG/1 ML SDV IV SCH ×3 (06:56→21:58)
[2019-11-19] MEDS: BUPROPION HCL 100 MG TABLET PO SCH ×3 (06:56→21:59)
[2019-11-19] MEDS: HEPARIN SOD (PORCINE) 5,000 UNIT/ML 1 ML VIAL SUBCUT SCH ×3 (06:56→22:05)
[2019-11-19] MEDS: INSULIN REG, HUMAN 100 UNIT/ML 3 ML VIAL (PYX) SUBCUT SCH ×4 (07:29→21:59)
[2019-11-19] MEDS: BUDESONIDE NEB 0.5 MG/2 ML AMPUL NEB SCH ×2 (08:04→20:57)
[2019-11-19] MEDS: METOPROLOL SUCCINATE 25 MG TAB.SR.24H PO SCH ×2 (10:57→21:59)
[2019-11-19] MEDS: DOCUSATE SODIUM 100 MG CAPSULE PO SCH ×2 (10:57→17:06)
[2019-11-19] MEDS: FAMOTIDINE 20 MG TABLET PO SCH ×2 (10:59→21:59)
[2019-11-19] MEDS: MAGNESIUM OXIDE 400 MG TABLET PO SCH ×2 (10:59→17:06)
[2019-11-19] MEDS: SITAGLIPTIN PHOSPHATE 50 MG TABLET PO SCH (10:59)
[2019-11-19] MEDS: LISINOPRIL 10 MG TABLET PO SCH (10:59)
[2019-11-19] MEDS: ASPIRIN 81 MG TABLET, ENT COATED PO SCH (10:59)
[2019-11-19] MEDS: FLUTICASONE PROPIONATE HFA 110 MCG/PUFF 12 GM MDI IH SCH ×2 (10:59→17:06)
[2019-11-19] MEDS: CEFTRIAXONE 2 GM/D5W RTU 2 GM/50 ML RTUPB IV SCH (11:03)
--- NOTE | 2019-11-19 14:21 | PDOC PROGRESS REPORT ---
Subjective Progress Note for:: 11/19/19 Reason For Visit: ACUTE EXACERBATION COPD,ACUTE RESPIRATORY FAILURE 11/19/2019 COPD exacerbation, respiratory failure, end-stage COPD Physical Exam Vital Signs: Temp Pulse Resp BP Pulse Ox 98.0 F 77 18 114/47 L 96 11/19/19 11:00 11/19/19 11:00 11/19/19 11:00 11/19/19 11:00 11/19/19 11:00 Intake & Output 11/18/19 11/19/19 11/20/19 06:59 06:59 06:59 Intake Total 2326 2120 290 Balance 2326 2120 290 Weight 62.3 kg 59.3 kg General appearance: PRESENT: no acute distress, thin, other - Patient appears very thin and frail Respiratory exam: PRESENT: clear to auscultation dayan. ABSENT: rales, rhonchi, wheezes Cardiovascular exam: PRESENT: RRR. ABSENT: diastolic murmur, rubs, systolic murmur Neurological exam: PRESENT: alert, awake, oriented to person, oriented to place, oriented to time, oriented to situation, CN II-XII grossly intact. ABSENT: motor sensory deficit Psychiatric exam: PRESENT: flat affect Results Laboratory Results: 11/18/19 06:25 11/16/19 04:35 11/15/19 02:03 Blood Blood Culture (PCR) - Final Staphylococcus Species 11/15/19 02:03 Blood Blood Culture - Final Staphylococcus Hominis 11/15/19 02:03 Troponin I 0.017 Impressions: Chest X-Ray 11/15/19 02:26 IMPRESSION: No acute cardiopulmonary process. copyright 2010 [employer]- All Rights Reserved Assessment and Plan - Diagnosis (1) COPD with acute exacerbation Is this a current diagnosis for this admission?: Yes (2) Diabetes mellitus type 2 in nonobese Is this a current diagnosis for this admission?: Yes (3) Essential hypertension Is this a current diagnosis for this admission?: Yes (4) History of lung or bronchial cancer Is this a current diagnosis for this admission?: Yes - Plan Summary Summary: Patient be admitted to the medical service on the medical floor where he will receive routine supportive and symptomatic cares. He will be treated aggressively with a pulmonary toilet utilizing Pulmicort, Xopenex and Atrovent delivered via nebulizer. He will also receive IV Solu-Medrol. He will receive supplemental oxygen via noninvasive airway pressure devices or other means as necessary to assure adequate oxygenation and a O2 sat monitor of 90 to 94%. CBCs and basic metabolic profiles will be performed as needed. Patient be continued on his usual home medications once his medication reconciliation has been completed. 11/16/2019 Blood cultures are positive for staph preliminary report O2 saturation today is between 95 and 100% either nasal cannula or BiPAP Heart rate is in the 90s, blood pressure approximately 132/51 early this morning White count on admission was 9.5 today is 14.1, electrolytes are basically normal glucose is running about 300 or slightly higher Today I have added Solu-Medrol 40 mg every 8 hours we will watch his glucose while on steroids Daughter tells me that he occasionally will cough up blood and is asked to put a PPD on him which I have ordered. Will probably be ready to be discharged in 2 to 3 days 11/17/2019 Temperature 98.2, pulse 90 blood pressure 138/70, O2 sat 97% 2 L nasal cannula WBCs stable 11.5 glucose is elevated at 300. Patient is currently on Rocephin and Solu-Medrol. Patient's home meds have been resumed, patient is a known diabetic Patient does have a heart murmur which he has been told about in the past She is making good improvement, anticipate discharge home and 24 to 48 hours 11/18/2019 Respiratory therapy and I discussed the case today. It appears as though some o f the personnel have been turning up his oxygen 4 L switching this patient with COPD was contraindicated regular write an order for the O2 to not be above 2 L. Patient is maintaining his sats well at this setting in the upper 90s Blood pressure 137/60 pulse 87 and regular Count is stable 12.9 patient is on steroids Sugars are still running slightly high in the 300s. Going to check a hemoglobin A1c. Even when he came in his blood sugars were elevated in the 300s on no steroids 1 blood cultures growing out staph another blood cultures negative after 72 hours Patient currently on Rocephin Patient states he is feeling better 11/19/2019 Patient is going to get up and walk with the nurse today and record his O2 sat. he does not use oxygen at home Signs are stable temperature 97.8, pulse 73, blood pressure 112/60, 99% O2 sat on BiPAP PPD skin test was negative yesterday. Anticipate discharging the patient tomorrow Patient is able to be up and ambulatory on his own in no distress - Time Time Spent with patient: 25-34 minutes
[2019-11-19] MEDS: MONTELUKAST SODIUM 10 MG TABLET PO SCH (17:06)
[2019-11-19] MEDS: LEVALBUTEROL HCL NEB 0.63 MG/3 ML AMPUL NEB PRN (20:57)
[2019-11-19] MEDS: ATORVASTATIN CALCIUM 40 MG TABLET PO SCH (21:59)
[2019-11-20] MEDS: OXYCODONE HCL IR 5 MG TABLET PO PRN (02:17)
[2019-11-20] MEDS: OXYCODONE HCL IR 5 MG TABLET PO SCH ×4 (03:05→14:54)
[2019-11-20] MEDS: BUPROPION HCL 100 MG TABLET PO SCH ×2 (06:31→14:54)
[2019-11-20] MEDS: HEPARIN SOD (PORCINE) 5,000 UNIT/ML 1 ML VIAL SUBCUT SCH ×2 (06:31→14:45)
[2019-11-20] MEDS: METHYLPREDNISOLONE INJ 40 MG/1 ML SDV IV SCH ×2 (06:31→14:45)
[2019-11-20] MEDS: INSULIN REG, HUMAN 100 UNIT/ML 3 ML VIAL (PYX) SUBCUT SCH ×2 (07:56→12:13)
[2019-11-20] MEDS: BUDESONIDE NEB 0.5 MG/2 ML AMPUL NEB SCH (08:28)
[2019-11-20] MEDS: IPRATROPIUM BROMIDE 0.02% NEB 0.5 MG/2.5 ML AMPUL NEB SCH (08:28)
[2019-11-20] MEDS: LEVALBUTEROL HCL NEB 1.25 MG/3 ML AMPUL NEB SCH (08:28)
[2019-11-20] MEDS: LISINOPRIL 10 MG TABLET PO SCH (09:40)
[2019-11-20] MEDS: FAMOTIDINE 20 MG TABLET PO SCH (09:41)
[2019-11-20] MEDS: METOPROLOL SUCCINATE 25 MG TAB.SR.24H PO SCH (09:41)
[2019-11-20] MEDS: DOCUSATE SODIUM 100 MG CAPSULE PO SCH (09:41)
[2019-11-20] MEDS: MAGNESIUM OXIDE 400 MG TABLET PO SCH (09:41)
[2019-11-20] MEDS: ASPIRIN 81 MG TABLET, ENT COATED PO SCH (09:41)
[2019-11-20] MEDS: FLUTICASONE PROPIONATE HFA 110 MCG/PUFF 12 GM MDI IH SCH (09:42)
[2019-11-20] MEDS: CEFTRIAXONE 2 GM/D5W RTU 2 GM/50 ML RTUPB IV SCH (09:42)
[2019-11-20] MEDS: SITAGLIPTIN PHOSPHATE 50 MG TABLET PO SCH (09:42)
[2019-11-20 12:35] VITALS: BP 126/53
--- NOTE | 2019-11-20 18:54 | PDOC DISCHARGE SUMMARY ---
Impression - Admit/DC Date/PCP Admission Date/Primary Care Provider: 11/15/19 04:09 AMERICO VILLEGAS Discharge Date: 11/20/19 - Discharge Diagnosis (1) COPD with acute exacerbation Is this a current diagnosis for this admission?: Yes (2) Diabetes mellitus type 2 in nonobese Is this a current diagnosis for this admission?: Yes (3) Essential hypertension Is this a current diagnosis for this admission?: Yes (4) History of lung or bronchial cancer Is this a current diagnosis for this admission?: Yes - Assessment Summary: Patient be admitted to the medical service on the medical floor where he will receive routine supportive and symptomatic cares. He will be treated aggressively with a pulmonary toilet utilizing Pulmicort, Xopenex and Atrovent delivered via nebulizer. He will also receive IV Solu-Medrol. He will receive supplemental oxygen via noninvasive airway pressure devices or other means as necessary to assure adequate oxygenation and a O2 sat monitor of 90 to 94%. CBCs and basic metabolic profiles will be performed as needed. Patient be continued on his usual home medications once his medication reconciliation has been completed. 11/16/2019 Blood cultures are positive for staph preliminary report O2 saturation today is between 95 and 100% either nasal cannula or BiPAP Heart rate is in the 90s, blood pressure approximately 132/51 early this morning White count on admission was 9.5 today is 14.1, electrolytes are basically normal glucose is running about 300 or slightly higher Today I have added Solu-Medrol 40 mg every 8 hours we will watch his glucose while on steroids Daughter tells me that he occasionally will cough up blood and is asked to put a PPD on him which I have ordered. Will probably be ready to be discharged in 2 to 3 days 11/17/2019 Temperature 98.2, pulse 90 blood pressure 138/70, O2 sat 97% 2 L nasal cannula WBCs stable 11.5 glucose is elevated at 300. Patient is currently on Rocephin and Solu-Medrol. Patient's home meds have been resumed, patient is a known diabetic Patient does have a heart murmur which he has been told about in the past She is making good improvement, anticipate discharge home and 24 to 48 hours 11/18/2019 Respiratory therapy and I discussed the case today. It appears as though some of the personnel have been turning up his oxygen 4 L switching this patient with COPD was contraindicated regular write an order for the O2 to not be above 2 L. Patient is maintaining his sats well at this setting in the upper 90s Blood pressure 137/60 pulse 87 and regular Count is stable 12.9 patient is on steroids Sugars are still running slightly high in the 300s. Going to check a hemoglobin A1c. Even when he came in his blood sugars were elevated in the 300s on no steroids 1 blood cultures growing out staph another blood cultures negative after 72 hours Patient currently on Rocephin Patient states he is feeling better 11/19/2019 Patient is going to get up and walk with the nurse today and record his O2 sat. he does not use oxygen at home Signs are stable temperature 97.8, pulse 73, blood pressure 112/60, 99% O2 sat on BiPAP PPD skin test was negative yesterday. Anticipate discharging the patient tomorrow Patient is able to be up and ambulatory on his own in no distress 11/20/2019 Patient is feeling much better and ready to be discharged home He is breathing much easier and does not require oxygen Labs and vital signs are stable Patient was discharged home on a Medrol Dosepak. I also wrote scription for his Lantus insulin, I believe it was 15 units subcu every 12 hours Follow-up with his primary care provider in [facility] in 7 to 10 days - Additional Information Resuscitation Status: Full Code Discharge Diet: As Tolerated Discharge Activity: Activity As Tolerated Referrals: GABBI CLINE FNP-C [NURSE PRACTITIONER] - 11/28/19 2:45 pm Prescriptions: Methylprednisolone [Medrol Dosepack (4 mg/Tab) 21 Tab/Dosepak] 4 mg PO ASDIR PRN #21 tab.ds.pk PRN Reason: Home Medications: Aspirin [Adult Low Dose Aspirin EC] 81 mg PO DAILY 11/15/19 Atorvastatin Calcium [Lipitor 40 mg Tablet] 40 mg PO QHS 11/15/19 Bupropion HCl [Wellbutrin Xl 150 mg 24hr Tablet] 150 mg PO BID 11/15/19 Fluticasone Propionate [Flovent Hfa 110 Mcg Inhalation Aerosol 12 gm] 1 puff IH BID 11/15/19 Ipratropium/Albuterol Sulfate [Combivent Respimat 4 gm Mdi] 1 puff IH QID 11/15/19 Ipratropium/Albuterol Sulfate [Duoneb 3 ml Ampul] 3 ml NEB RTQIDP PRN 11/15/19 Lisinopril [Zestril] 10 mg PO DAILY 11/15/19 Magnesium Oxide [Magnesium] 500 mg PO BID 11/15/19 Metoprolol Succinate [Toprol Xl 25 mg Tab.sr] 12.5 mg PO BID 11/15/19 Montelukast Sodium [Singulair 10 mg Tablet] 10 mg PO QPM 11/15/19 Oxycodone HCl [Roxicodone] 30 mg PO Q4 11/15/19 Saxagliptin HCl [Onglyza] 2.5 mg PO DAILY 11/15/19 Methylprednisolone [Medrol Dosepack (4 mg/Tab) 21 Tab/Dosepak] 4 mg PO ASDIR PRN #21 tab.ds.pk 11/20/19 Oxycodone HCl [Oxy-Ir 5 mg Tablet] 30 mg PO Q4HP PRN tablet 11/20/19 History of Present Illiness History of Present Illness: RADHA TEJEDA is a 64 year old male Physical Exam Vital Signs: Temp Pulse Resp BP Pulse Ox 98.2 F 84 18 126/53 H 95 11/20/19 13:41 11/20/19 13:41 11/20/19 13:41 11/20/19 13:41 11/20/19 13:41 Intake & Output 11/19/19 11/20/19 11/21/19 06:59 06:59 06:59 Intake Total 2120 875 886 Balance 2120 875 886 Weight 59.3 kg 59.2 kg Results Laboratory Results: WBC 12.9 10^3/uL (4.0-10.5) H 11/18/19 06:25 RBC 4.83 10^6/uL (4.35-5.55) 11/18/19 06:25 Hgb 14.0 g/dL (13.5-17.0) 11/18/19 06:25 Hct 41.5 % (37.9-51.0) 11/18/19 06:25 MCV 86 fl (80-97) 11/18/19 06:25 MCH 29.0 pg (27.0-33.4) 11/18/19 06:25 MCHC 33.8 g/dL (32.0-36.0) 11/18/19 06:25 RDW 14.9 % (11.5-14.0) H 11/18/19 06:25 Plt Count 235 10^3/uL (150-450) 11/18/19 06:25 Lymph % (Auto) 16.5 % (13-45) 11/15/19 02:03 Appling % (Auto) 6.2 % (3-13) 11/15/19 02:03 Eos % (Auto) 2.8 % (0-6) 11/15/19 02:03 Baso % (Auto) 0.9 % (0-2) 11/15/19 02:03 Absolute Neuts (auto) 7.0 10^3/uL (1.7-8.2) 11/15/19 02:03 Absolute Lymphs (auto) 1.6 10^3/uL (0.5-4.7) 11/15/19 02:03 Absolute Monos (auto) 0.6 10^3/uL (0.1-1.4) 11/15/19 02:03 Absolute Eos (auto) 0.3 10^3/uL (0.0-0.6) 11/15/19 02:03 Absolute Basos (auto) 0.1 10^3/uL (0.0-0.2) 11/15/19 02:03 Seg Neutrophils % 73.6 % (42-78) 11/15/19 02:03 Carbonic Acid 1.70 mmol/L (1.05-1.35) H 11/15/19 06:30 HCO3/H2CO3 Ratio 18:1 11/15/19 06:30 ABG pH 7.36 (7.35-7.45) 11/15/19 06:30 ABG pCO2 56.5 mmHg (35-45) H 11/15/19 06:30 ABG pO2 121.2 mmHg (80-100) H 11/15/19 06:30 ABG HCO3 31.1 mmol/L (20-24) H 11/15/19 06:30 ABG Total CO2 32.8 mmol/L (23-27) H 11/15/19 06:30 ABG O2 Saturation 98.2 % (94-98) H 11/15/19 06:30 ABG Base Excess 4.0 mmol/L 11/15/19 06:30 FiO2 3L 11/15/19 06:30 Sodium 136.8 mmol/L (137-145) L 11/16/19 04:35 Potassium 4.7 mmol/L (3.6-5.0) 11/16/19 04:35 Chloride 92 mmol/L (98-107) L 11/16/19 04:35 Carbon Dioxide 35 mmol/L (22-30) H 11/16/19 04:35 Anion Gap 10 (5-19) 11/16/19 04:35 BUN 14 mg/dL (7-20) 11/16/19 04:35 Creatinine 0.77 mg/dL (0.52-1.25) 11/16/19 04:35 Est GFR ( Amer) > 60 (>60) 11/16/19 04:35 Est GFR (MDRD) Non-Af > 60 (>60) 11/16/19 04:35 Glucose 290 mg/dL (75-110) H 11/16/19 04:35 POC Glucose 344 mg/dL (70-110) H 11/20/19 11:25 Hemoglobin A1c % 11.7 % (4.7-6.0) H 11/18/19 06:25 Lactic Acid 1.2 mmol/L (0.7-2.1) 11/15/19 02:03 Calcium 9.4 mg/dL (8.4-10.2) 11/16/19 04:35 Magnesium 2.2 mg/dL (1.6-2.3) 11/16/19 04:35 Total Bilirubin 0.4 mg/dL (0.2-1.3) 11/15/19 02:03 Direct Bilirubin 0.2 mg/dL (0.0-0.4) 11/15/19 02:03 Neonat Total Bilirubin Not Reportable 11/15/19 02:03 Neonat Direct Bilirubin Not Reportable 11/15/19 02:03 Neonat Indirect Bili Not Reportable 11/15/19 02:03 AST 65 U/L (17-59) H 11/15/19 02:03 ALT 59 U/L (<50) 11/15/19 02:03 Alkaline Phosphatase 121 U/L (38-126) 11/15/19 02:03 Troponin I 0.017 ng/mL 11/15/19 02:03 Total Protein 6.7 g/dL (6.3-8.2) 11/15/19 02:03 Albumin 4.0 g/dL (3.5-5.0) 11/15/19 02:03 11/15/19 02:03 Troponin I 0.017 Impressions: Chest X-Ray 11/15/19 02:26 IMPRESSION: No acute cardiopulmonary process. copyright 2010 [facility] [employer]- All Rights Reserved Stroke Is this a Stroke Patient?: No Acute Heart Failure - Is this a Heart Failure Patient?: No
== END 2019-11-20 15:38 | disposition home or self-care (01) | DRG 190 ==
LOC: ER 01:52 → EH 04:09 → 4N 05:30
PROVIDERS: ADMIT Emergency Medicine; ATTEND Emergency Medicine
PROC: 5A09557 Assistance with Respiratory Ventilation, Greater than 96 Consecutive Hours, Continuous Positive Airway Pressure (ICD-10-PCS; principal; 2019-11-15)
DX: J44.1 Chronic obstructive pulmonary disease with (acute) exacerbation (principal); J96.01 Acute respiratory failure with hypoxia; E11.9 Type 2 diabetes mellitus without complications; I10 Essential (primary) hypertension; G47.00 Insomnia, unspecified; Z87.891 Personal history of nicotine dependence; Z79.899 Other long term (current) drug therapy; Z79.4 Long term (current) use of insulin; Z88.8 Allergy status to other drugs, medicaments and biological substances; Z85.118 Personal history of other malignant neoplasm of bronchus and lung
CPT/HCPCS: 36415; 71045; 80048; 80053; 82803; 82962; 83036; 83605; 83735; 84484; 85025; 85027; 87040; 87077; 87150; 87186; 93005; 93010; 94640; 94660; 99285; J0696; J1644; J1815; J2920; J3490; J7614; J7620

== ENCOUNTER → 2019-12-05 | Outpatient (CLI) | payer MEDICARE, OTHER ==
--- NOTE | 2019-12-06 12:16 | RADIOLOGY REPORT (SQ) ---
EXAM DESCRIPTION: PET CT SKULL/THIGH COMPLETED DATE/TIME: 12/05/2019 8:06 pm REASON FOR STUDY: LUNG CA (C34.02) C34.02 MALIGNANT NEOPLASM OF LEFT MAIN BRONCHUS COMPARISON: PET from 06/25/2019. RADIONUCLIDE AND DOSE: 10.99 mCi F18 FDG The route of agent administration: Intravenous FASTING BLOOD SUGAR: 147 mg/dl CONTRAST TYPE AND DOSE: No CT contrast given. TECHNIQUE: Blood glucose level was verified. Above dose of FDG was injected intravenously. 2-D seg mented attenuation correction images were obtained from the base of the skull to the midthighs. Nonc ontrast CT images were obtained for attenuation correction and fusion with emission images. CT image s were performed without oral or intravenous contrast and are not sensitive for parenchymal lesions. A series of overlapping emission PET images were obtained. Images reviewed and manipulated at [facility] work station by the radiologist. Images stored on PACS. LIMITATIONS: None. FINDINGS: HEAD AND NECK: No areas of abnormal metabolic activity in the soft tissues of the head and neck. CHEST: No areas of abnormal metabolic activity in the chest. ABDOMEN AND PELVIS: The liver demonstrates heterogeneous non focal FDG uptake with an average SUV of 2.1. There is expected physiologic activity throughout the gastrointestinal and genitourinary tracts . No areas of abnormal metabolic activity are identified in the abdomen or pelvis PROXIMAL LOWER EXTREMITIES: No areas of abnormal metabolic activity in the soft tissues of the lower extremities. BONES: No areas of abnormal metabolic activity in the imaged axial and appendicular skeleton. ADDITIONAL CT FINDINGS: No acute findings. OTHER: No other findings. IMPRESSION: No metabolic evidence of recurrent disease. TECHNICAL DOCUMENTATION: JOB ID: [id number] [employer]- All Rights Reserved Reading location - IP/workstation name: [email or web address]
== END ==
LOC: RAD 07:43
PROVIDERS: ATTEND Physician Assistant Medical
DX: C34.02 Malignant neoplasm of left main bronchus (principal)
CPT/HCPCS: 78815; A9552

== ENCOUNTER 2020-01-08 05:14 | Observation (INO) | payer MEDICARE, OTHER ==
[2020-01-08] MEDS ORDERED: IPRATROPIUM/ALBUTEROL 0.5-2.5 MG/3 ML AMPUL NEB ONE (05:21)
--- NOTE | 2020-01-08 05:39 | ER Document Report ---
ED Respiratory Problem - General Chief Complaint: Respiratory Distress Stated Complaint: DIFFICULTY BREATHING Time Seen by Provider: 01/08/20 05:32 Primary Care Provider: VÍCTOR DELGADILLO NP-C [Primary Care Provider] - Follow up as needed Notes: CHIEF COMPLAINT: Shortness of breath that began last night HPI: 64-year-old male with history of lung cancer and COPD presenting for evaluation of shortness of breath that began last night. Patient has not had fever or recent illness. Patient states that he lives in a camper with his , states she began cooking and turned on the fan over the stove which she believes started an asthma attack. Patient had slight wheezing before going to bed woke up at 4 in the morning with more significant wheezing and shortness of breath. Tried 1 breathing treatment at home without resolution of his shortness of breath so EMS was called. EMS states they gave the patient Solu-Medrol and another breathing treatment but found the patient initially with a pulse oximetry of 90%. They state he did improve to 98% after 1 breathing treatment. Patient still reports of shortness of breath and wheezing. Patient states that his lung cancer is being treated with immune therapy, last treatment was 10 days ago. He follows with Dr. Ram. Patient states this is similar to what he had in September and October when he was admitted for shortness of breath ROS: See HPI - all other systems were reviewed and are otherwise negative Constitutional: no fever Eyes: no drainage, no blurred vision ENT: no runny nose, no sore throat Cardiovascular: no chest pain Resp: + SOB, + cough GI: no vomiting, no diarrhea, no abdominal pain : no dysuria Integumentary: no rash Allergy: no hives Musculoskeletal: no extremity pain or swelling Neurological: no numbness/tingling, no weakness MEDICATIONS: I agree with the patient medications as charted by the RN. ALLERGIES: I agree with the allergies as charted by the RN. PAST MEDICAL HISTORY/PAST SURGICAL HISTORY: Reviewed and agree as charted by RN. SOCIAL HISTORY: Reviewed and agree as charted by RN. FAMILY HISTORY: No significant familial comorbid conditions directly related to patient complaint EXAM: Reviewed vital signs as charted by RN. CONSTITUTIONAL: Alert and oriented and responds appropriately to questions. Well-appearing; well-nourished, mild distress secondary to respiratory difficulty HEAD: Normocephalic; atraumatic EYES: PERRL; Conjunctivae clear, sclerae non-icteric ENT: normal nose; no rhinorrhea; moist mucous membranes; pharynx without lesions noted, no uvula edema or deviation, no tonsillar hypertrophy, phonation normal NECK: Supple without meningismus; non-tender; no cervical lymphadenopathy, no masses CARD: RRR; no murmurs, no clicks, no rubs, no gallops; symmetric distal pulses RESP: Normal chest excursion without splinting or tachypnea; breath sounds noted to have inspiratory and expiratory wheezing in all lung au, no rhonchi, no rales, pulse oximetry 94% on room air while getting breathing treatment ABD/GI: Normal bowel sounds; non-distended; soft, non-tender, no rebound, no guarding; no palpable organomegaly or masses. BACK: The back appears normal and is non-tender to palpation, there is no CVA tenderness EXT: Normal ROM in all joints; non-tender to palpation; no cyanosis, no effusions, no edema SKIN: Normal color for age and race; warm; dry; good turgor; no acute lesions noted NEURO: Moves all extremities equally; Motor and sensory function intact PSYCH: The patient's mood and manner are appropriate. Grooming and personal hygiene are appropriate. MDM: 64-year-old male presenting for shortness of breath that began last night no fever. Symptoms began when began cooking in the camper. Is on third breathing treatment currently still with wheezing. Did receive Solu-Medrol. Will give magnesium, reassess TRAVEL OUTSIDE OF THE [place] IN LAST 30 DAYS: No - Related Data Allergies/Adverse Reactions: epinephrine [Epinephrine] Allergy (Severe, Verified 05/06/15 12:18) Tachycardia indomethacin [Indomethacin] Allergy (Severe, Verified 05/06/15 12:18) GI BLEED Past Medical History - Social History Smoking Status: Current Every Day Smoker Chew tobacco use (# tins/day): No Frequency of alcohol use: None Drug Abuse: None Family History: CAD, Other Patient has suicidal ideation: No Patient has homicidal ideation: No - Past Medical History Cardiac Medical History: Reports: Hx Hypertension, Hx Heart Murmur Denies: Hx Atrial Fibrillation, Hx Congestive Heart Failure, Hx Coronary Artery Disease, Hx Heart Attack, Hx Hypercholesterolemia Pulmonary Medical History: Reports: Hx Asthma, Hx Bronchitis, Hx Pneumonia - many years ago (15-20 yrs ago), Hx Respiratory Failure Denies: Hx COPD Neurological Medical History: Denies: Hx Cerebrovascular Accident, Hx Seizures Endocrine Medical History: Reports: Hx Diabetes Mellitus Type 2. Denies: Hx Diabetes Mellitus Type 1, Hx Hyperthyroidism, Hx Hypothyroidism Malignancy Medical History: Reports Hx Lung Cancer GI Medical History: Denies: Hx Cirrhosis, Hx Crohn's Disease, Hx Hepatitis, Hx Ulcerative Colitis Musculoskeletal Medical History: Reports Hx Arthritis - Multiple joints, Reports Hx Gout Skin Medical History: Denies Hx Eczema, Denies Hx Psoriasis Psychiatric Medical History: Reports: Hx Depression Infectious Medical History: Denies: Hx Hepatitis Past Surgical History: Reports: Hx Orthopedic Surgery - Cervical spine fusion, Other - Bronchoscopies with biopsy - Immunizations Hx Diphtheria, Pertussis, Tetanus Vaccination: No Hx Pneumococcal Vaccination: 08/22/19 Physical Exam - Vital signs Vitals: Pulse Ox 95 01/08/20 05:19 Course - Re-evaluation Re-evalutation: 01/08/20 06:44 Patient states he feels much better at this time still with slight wheezing, pulse oximetry 93% on room air, not in distress at this time. Finishing magnesium. Will ambulate after magnesium and reassess. Initial screening labs do not show acute emergent abnormalities. Awaiting BNP and troponin. Heart rate has significantly improved, currently around 110 01/08/20 07:03 Patient attempted to walk to the bathroom across the gaing and go to the bathroom. Patient pulse oximetry went down to 89% and he became significantly dyspneic. He had to be placed on 2 L nasal cannula to elevate his oxygenation again. Still with some wheezing. Patient troponin very slightly positive at 0.05. BNP approximately 1000. Patient troponin historically has not been this elevated. Does not have chest pain. Chest x-ray did not show evidence of pulmonary edema. Likely COPD exacerbation as it is similar to what he was admitted for in October 2019. Patient will likely need admission. He is already had 3 breathing treatments, steroids, 2 g of magnesium without significant improvement in symptoms. He was admitted to the hospitalist service the last time I will start with the hospitalist service again. 01/08/20 07:[address] Maloney, Hospitalist. We discussed patient's lab work. We discussed patient's troponin and BNP. Requests that I call Thalia Blackman for the admission, and I did speak with Crystal, admit observation to telemetry bed. Patient indicates that he has had cardiology work-up in the past and believes his licensed practical vocational nurse is Dr. Mccollum - Vital Signs Vital signs: Temp Pulse Resp BP Pulse Ox 98.5 F 118 H 15 134/70 H 99 01/08/20 05:24 01/08/20 05:29 01/08/20 07:01 01/08/20 07:01 01/08/20 07:01 - Laboratory Result Diagrams: 01/08/20 06:00 01/08/20 06:00 Laboratory results interpreted by me: 01/08/20 01/08/20 01/08/20 06:00 06:00 06:00 WBC 10.8 H RDW 15.0 H Lymph % (Auto) 12.0 L Absolute Neuts (auto) 8.7 H Seg Neutrophils % 80.4 H Sodium 136.8 L Glucose 285 H Calcium 7.6 L Total Bilirubin 0.1 L NT-Pro-B Natriuret Pep 1090 H Total Protein 5.7 L Albumin 3.3 L Discharge - Discharge Clinical Impression: COPD with exacerbation, Elevated troponin I level Condition: Stable Disposition: ADMITTED OBSERVATION Admitting Provider: Haider (Hospitalist) Unit Admitted: Telemetry Referrals: VÍCTOR DELGADILLO NP-C [Primary Care Provider] - Follow up as needed
[2020-01-08] MEDS: MAGNESIUM SULFATE/D5W 1 GM/100 ML RTUPB IV SCH ×2 (05:59→06:48)
--- NOTE | 2020-01-08 06:11 | EKG REPORT ---
SEVERITY:- ABNORMAL ECG - SINUS TACHYCARDIA PROBABLE LEFT ATRIAL ABNORMALITY RIGHT BUNDLE BRANCH BLOCK AND LAFB : Confirmed by: Damion Bingham MD 08-Jan-2020 06:10:28
[2020-01-08 06:21] LABS: ABSOLUTE BASOPHILS # (AUTO) 0.1 10^3/uL (0.0-0.2); ABSOLUTE EOSINOPHILS # (AUTO) 0.2 10^3/uL (0.0-0.6); ABSOLUTE LYMPHOCYTES (AUTO) 1.3 10^3/uL (0.5-4.7); ABSOLUTE MONOCYTES (AUTO) 0.5 10^3/uL (0.1-1.4); ABSOLUTE NEUT (AUTO) 8.7 10^3/uL (1.7-8.2); BASOPHILS % (AUTO) 0.9 % (0-2); EOSINOPHILS % (AUTO) 2.3 % (0-6); HEMATOCRIT 39.5 % (37.9-51.0); HEMOGLOBIN 13.5 g/dL (13.5-17.0); MEAN CORPUSCULAR HEMOGLOBIN 29.7 pg (27.0-33.4); MEAN CORPUSCULAR HGB CONC 34.1 g/dL (32.0-36.0); MEAN CORPUSCULAR VOLUME 87 fl (80-97); MONOCYTES % (AUTO) 4.4 % (3-13); PLATELET COUNT 237 10^3/uL (150-450); RED BLOOD COUNT 4.54 10^6/uL (4.35-5.55); SEGMENTED NEUTROPHILS % (AUTO) 80.4 % (42-78); TOTAL CELLS COUNTED % (AUTO) 100 %; WHITE BLOOD COUNT 10.8 10^3/uL (4.0-10.5)
--- NOTE | 2020-01-08 06:34 | RADIOLOGY REPORT (SQ) ---
CLINICAL HISTORY: sob COMPARISON: 11/15/2019. TECHNIQUE: XR CHEST 1 VIEW 01/08/2020 5:37 AM [employer] HELPER FINDINGS: The heart is enlarged. Lungs are clear without consolidation, atelectasis, mass or edema. There is no pleural effusion. There is no pneumothorax. There are no acute osseous findings. Right chest port is unchanged. IMPRESSION: No pneumonia.
[2020-01-08 06:37] LABS: ALBUMIN 3.3 g/dL (3.5-5.0); ALKALINE PHOSPHATASE 110 U/L (38-126); ANION GAP 6 (5-19); ASPARTATE AMINO TRANSFERASE 19 U/L (17-59); BILIRUBIN,TOTAL 0.1 mg/dL (0.2-1.3); BLOOD UREA NITROGEN 19 mg/dL (7-20); CALCIUM 7.6 mg/dL (8.4-10.2); CARBON DIOXIDE 27 mmol/L (22-30); CHLORIDE 104 mmol/L (98-107); GLUCOSE 285 mg/dL (75-110); POTASSIUM 4.1 mmol/L (3.6-5.0); TOTAL PROTEIN 5.7 g/dL (6.3-8.2)
[2020-01-08 06:53] LABS: TROPONIN I 0.054 ng/mL
[2020-01-08] MEDS ORDERED: LEVALBUTEROL HCL NEB 1.25 MG/3 ML AMPUL NEB PRN (07:44)
[2020-01-08] MEDS ORDERED: MAG HYDROX/AL HYDROX/SIMETH SUSP 30 ML UDCUP PO PRN (07:44)
[2020-01-08] MEDS ORDERED: ONDANSETRON HCL INJ/PF 4 MG/2 ML SDV IV PRN (07:44)
[2020-01-08] MEDS ORDERED: ACETAMINOPHEN 325 MG TABLET PO PRN (07:44)
[2020-01-08] MEDS: IPRATROPIUM/ALBUTEROL 0.5-2.5 MG/3 ML AMPUL NEB SCH ×2 (08:25→16:44)
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
[2020-01-08] MEDS: FAMOTIDINE 20 MG TABLET PO SCH ×2 (10:51→21:35)
[2020-01-08] MEDS: DOCUSATE SODIUM 100 MG CAPSULE PO SCH (10:51)
[2020-01-08] MEDS: GUAIFENESIN 600 MG TABLET.SA PO SCH ×2 (10:51→21:35)
[2020-01-08] MEDS: NICOTINE 21 MG/24 HR PATCH.TD24 TD SCH (10:52)
[2020-01-08] MEDS: MORPHINE SULFATE IR 30 MG TABLET PO PRN ×2 (12:11→16:14)
[2020-01-08] MEDS: METHYLPREDNISOLONE INJ 40 MG/1 ML SDV IV SCH ×2 (14:37→21:36)
[2020-01-08] MEDS ORDERED: DEXTROSE 40% GEL 15 GM TUBE PO PRN ×2 (18:42)
[2020-01-08] MEDS ORDERED: DEXTROSE 50%-WATER 25 GM/50 ML DISP.SYRIN IV PRN ×2 (18:42)
[2020-01-08] MEDS ORDERED: GLUCAGON,HUMAN RECOMB 1 MG INJ IM PRN (18:42)
[2020-01-08] MEDS ORDERED: METOPROLOL TARTRATE PF/INJ 5 MG/5 ML SDV IV ONE (20:48)
[2020-01-08] MEDS ORDERED: ASPIRIN 325 MG TABLET PO ONE (21:30)
[2020-01-08] MEDS: OXYCODONE HCL IR 5 MG TABLET PO PRN (21:33)
[2020-01-08] MEDS: LISINOPRIL 10 MG TABLET PO SCH (21:35)
[2020-01-08] MEDS: METOPROLOL SUCCINATE 25 MG TAB.SR.24H PO SCH (21:35)
[2020-01-08] MEDS: INSULIN LISPRO 100 UNIT/ML 3 ML VIAL SUBCUT SCH (21:42)
[2020-01-08] MEDS ORDERED: (PENDING PHARMACY ID) (Bupropion Hcl [Wellbutrin Xl 150 Mg 24hr Tablet] 150 MG) PO SCH (22:00)
[2020-01-09] MEDS: IPRATROPIUM/ALBUTEROL 0.5-2.5 MG/3 ML AMPUL NEB SCH ×3 (00:19→16:32)
[2020-01-09] MEDS: OXYCODONE HCL IR 5 MG TABLET PO PRN ×6 (01:37→21:51)
[2020-01-09 04:32] LABS: HEMATOCRIT 39.9 % (37.9-51.0); HEMOGLOBIN 13.6 g/dL (13.5-17.0); MEAN CORPUSCULAR HEMOGLOBIN 29.1 pg (27.0-33.4); MEAN CORPUSCULAR VOLUME 86 fl (80-97); PLATELET COUNT 244 10^3/uL (150-450); RED BLOOD COUNT 4.66 10^6/uL (4.35-5.55); RED CELL DISTRIBUTION WIDTH 14.7 % (11.5-14.0); WHITE BLOOD COUNT 15.1 10^3/uL (4.0-10.5)
[2020-01-09 04:56] LABS: ANION GAP 11 (5-19); BLOOD UREA NITROGEN 24 mg/dL (7-20); CALCIUM 9.1 mg/dL (8.4-10.2); CARBON DIOXIDE 27 mmol/L (22-30); CHLORIDE 96 mmol/L (98-107); GLUCOSE 339 mg/dL (75-110); POTASSIUM 4.9 mmol/L (3.6-5.0)
[2020-01-09] MEDS: METHYLPREDNISOLONE INJ 40 MG/1 ML SDV IV SCH ×3 (05:46→21:54)
[2020-01-09] MEDS: INSULIN LISPRO 100 UNIT/ML 3 ML VIAL SUBCUT SCH ×4 (08:46→22:49)
[2020-01-09] MEDS: GUAIFENESIN 600 MG TABLET.SA PO SCH ×2 (09:33→21:53)
[2020-01-09] MEDS: DOCUSATE SODIUM 100 MG CAPSULE PO SCH (09:34)
[2020-01-09] MEDS: FAMOTIDINE 20 MG TABLET PO SCH ×2 (09:34→21:53)
[2020-01-09] MEDS: METOPROLOL SUCCINATE 25 MG TAB.SR.24H PO SCH ×2 (09:34→21:53)
[2020-01-09] MEDS: NICOTINE 21 MG/24 HR PATCH.TD24 TD SCH (09:35)
[2020-01-09] MEDS: ASPIRIN 81 MG TABLET, ENT COATED PO SCH (09:38)
--- NOTE | 2020-01-09 18:19 | PDOC PROGRESS REPORT ---
Subjective Progress Note for:: 01/09/20 Subjective:: No adverse events overnight. No new complaints. Vital signs been stable. He is on a couple liters of oxygen now, says he does not use any at home. He says he is feeling a lot better than he was when he was admitted. Reason For Visit: COPD WITH EXACERBATION Physical Exam Vital Signs: Temp Pulse Resp BP Pulse Ox 98.6 F 100 16 129/67 H 98 01/09/20 11:53 01/09/20 16:32 01/09/20 16:32 01/09/20 11:53 01/09/20 16:32 Intake & Output 01/08/20 01/09/20 01/10/20 06:59 06:59 06:59 Intake Total 100 1730 Balance 100 1730 Weight 68.946 kg 66.8 kg General appearance: PRESENT: no acute distress, cooperative, disheveled Respiratory exam: PRESENT: decreased breath sounds, prolonged expiratory phas, symmetrical, unlabored, wheezes. ABSENT: accessory muscle use, crackles, retraction, rhonchi, tachypnea Cardiovascular exam: PRESENT: RRR, +S1, +S2 Pulses: PRESENT: normal carotid pulses Vascular exam: PRESENT: normal capillary refill GI/Abdominal exam: PRESENT: normal bowel sounds, soft. ABSENT: distended, guarding, rebound, tenderness Extremities exam: ABSENT: clubbing, pedal edema Musculoskeletal exam: PRESENT: normal inspection. ABSENT: deformity Neurological exam: PRESENT: alert, awake, oriented to person, oriented to place, oriented to situation Psychiatric exam: PRESENT: appropriate affect, normal mood Skin exam: PRESENT: dry, warm Results Laboratory Results: 01/09/20 04:11 01/09/20 04:11 01/09/20 01/09/20 04:11 04:11 WBC 15.1 H RBC 4.66 Hgb 13.6 Hct 39.9 MCV 86 MCH 29.1 MCHC 34.0 RDW 14.7 H Plt Count 244 Sodium 133.5 L Potassium 4.9 Chloride 96 L Carbon Dioxide 27 Anion Gap 11 BUN 24 H Creatinine 0.63 Est GFR ( Amer) > 60 Glucose 339 H Calcium 9.1 01/08/20 01/08/20 01/08/20 06:00 11:52 19:14 Troponin I 0.054 0.107 0.125 NT-Pro-B Natriuret Pep 1090 H Impressions: Chest X-Ray 01/08/20 05:37 IMPRESSION: No pneumonia. Assessment and Plan - Diagnosis (1) COPD with acute exacerbation Is this a current diagnosis for this admission?: Yes (2) Tobacco dependence Is this a current diagnosis for this admission?: Yes (3) Diabetes mellitus type 2 in nonobese Is this a current diagnosis for this admission?: Yes (4) Essential hypertension Is this a current diagnosis for this admission?: Yes - Plan Summary Summary: Improved. Hopefully can de-escalate steroids rapidly because they are having a serious effect on his blood sugars. Down to 2 L per nasal cannula, will try to wean off as he tolerates. Continue bronchodilators. Anticipate discharge in 24 to 48 hours. - Time Time Spent with patient: 15-24 minutes
[2020-01-09] MEDS: LISINOPRIL 10 MG TABLET PO SCH (21:53)
[2020-01-10] MEDS: IPRATROPIUM/ALBUTEROL 0.5-2.5 MG/3 ML AMPUL NEB SCH ×4 (00:50→23:38)
[2020-01-10] MEDS: OXYCODONE HCL IR 5 MG TABLET PO PRN ×5 (03:17→22:28)
[2020-01-10] MEDS: METHYLPREDNISOLONE INJ 40 MG/1 ML SDV IV SCH ×2 (06:03→13:31)
[2020-01-10] MEDS: BUPROPION HCL 100 MG TABLET PO SCH ×3 (08:44→22:29)
[2020-01-10] MEDS: INSULIN LISPRO 100 UNIT/ML 3 ML VIAL SUBCUT SCH ×5 (08:44→22:24)
[2020-01-10] MEDS: METOPROLOL SUCCINATE 25 MG TAB.SR.24H PO SCH ×2 (09:11→22:29)
[2020-01-10] MEDS: DOCUSATE SODIUM 100 MG CAPSULE PO SCH (09:11)
[2020-01-10] MEDS: ASPIRIN 81 MG TABLET, ENT COATED PO SCH (09:11)
[2020-01-10] MEDS: FAMOTIDINE 20 MG TABLET PO SCH ×2 (09:11→22:29)
[2020-01-10] MEDS: GUAIFENESIN 600 MG TABLET.SA PO SCH ×2 (09:11→22:29)
[2020-01-10] MEDS: NICOTINE 21 MG/24 HR PATCH.TD24 TD SCH (09:11)
--- NOTE | 2020-01-10 15:37 | PDOC PROGRESS REPORT ---
Subjective Progress Note for:: 01/10/20 Subjective:: No adverse events overnight. No new complaints. He is been stable on 1 L per nasal cannula at rest. His blood sugars have been elevated on Solu-Medrol. He has not tried to ambulate yet. Reason For Visit: COPD WITH EXACERBATION Physical Exam Vital Signs: Temp Pulse Resp BP Pulse Ox 97.8 F 89 18 153/59 H 98 01/10/20 11:50 01/10/20 11:50 01/10/20 11:50 01/10/20 11:50 01/10/20 11:50 Intake & Output 01/09/20 01/10/20 01/11/20 06:59 06:59 06:59 Intake Total 1730 1277 1176 Balance 1730 1277 1176 Weight 66.8 kg 66.2 kg General appearance: PRESENT: no acute distress, cooperative, disheveled Respiratory exam: PRESENT: decreased breath sounds, prolonged expiratory phas, symmetrical, unlabored, wheezes. ABSENT: accessory muscle use, crackles, retraction, rhonchi, tachypnea Cardiovascular exam: PRESENT: RRR, +S1, +S2 Pulses: PRESENT: normal carotid pulses Vascular exam: PRESENT: normal capillary refill GI/Abdominal exam: PRESENT: normal bowel sounds, soft. ABSENT: distended, guarding, rebound, tenderness Extremities exam: ABSENT: clubbing, pedal edema Musculoskeletal exam: PRESENT: normal inspection. ABSENT: deformity Neurological exam: PRESENT: alert, awake, oriented to person, oriented to place, oriented to situation Psychiatric exam: PRESENT: appropriate affect, normal mood Skin exam: PRESENT: dry, warm Results Laboratory Results: 01/09/20 04:11 01/09/20 04:11 01/08/20 01/08/20 01/08/20 06:00 11:52 19:14 Troponin I 0.054 0.107 0.125 NT-Pro-B Natriuret Pep 1090 H Impressions: Chest X-Ray 01/08/20 05:37 IMPRESSION: No pneumonia. Assessment and Plan - Diagnosis (1) COPD with acute exacerbation Is this a current diagnosis for this admission?: Yes Plan: Slowly improving. Because he is doing better, and because his blood sugars have been so high, I am stopping the Solu-Medrol and will put him on prednisone. Have increased his insulin to include a fixed dose with a sliding scale. (2) Tobacco dependence Is this a current diagnosis for this admission?: Yes Plan: Smoking cessation is encouraged. Nicotine replacement therapies provided. (3) Diabetes mellitus type 2 in nonobese Is this a current diagnosis for this admission?: Yes Plan: Consistent carb/cardiac diet. Accu-Cheks before meals and at bedtime. Humalog for sliding scale coverage. Have added a fixed dose to the sliding scale. Hypoglycemia protocol. Hold metformin while admitted. (4) Essential hypertension Is this a current diagnosis for this admission?: Yes Plan: Cardiac diet. Continue home medication regiment once reconciled. - Plan Summary Summary: Improved. Hopefully can de-escalate steroids rapidly because they are having a serious effect on his blood sugars. Down to 2 L per nasal cannula, will try to wean off as he tolerates. Continue bronchodilators. Anticipate discharge in 24 to 48 hours. - Time Time Spent with patient: 15-24 minutes
[2020-01-10] MEDS: LISINOPRIL 10 MG TABLET PO SCH (22:30)
[2020-01-11 02:54] VITALS: BP 114/55
[2020-01-11] MEDS: OXYCODONE HCL IR 5 MG TABLET PO PRN ×3 (04:05→12:28)
[2020-01-11] MEDS: BUPROPION HCL 100 MG TABLET PO SCH ×2 (06:30→13:29)
[2020-01-11] MEDS: IPRATROPIUM/ALBUTEROL 0.5-2.5 MG/3 ML AMPUL NEB SCH (08:38)
[2020-01-11] MEDS: INSULIN LISPRO 100 UNIT/ML 3 ML VIAL SUBCUT SCH ×3 (08:42→12:35)
[2020-01-11] MEDS: METOPROLOL SUCCINATE 25 MG TAB.SR.24H PO SCH (09:16)
[2020-01-11] MEDS: DOCUSATE SODIUM 100 MG CAPSULE PO SCH (09:16)
[2020-01-11] MEDS: GUAIFENESIN 600 MG TABLET.SA PO SCH (09:17)
[2020-01-11] MEDS: FAMOTIDINE 20 MG TABLET PO SCH (09:17)
[2020-01-11] MEDS: NICOTINE 21 MG/24 HR PATCH.TD24 TD SCH (09:17)
[2020-01-11] MEDS: ASPIRIN 81 MG TABLET, ENT COATED PO SCH (09:17)
[2020-01-11] MEDS ORDERED: PREDNISONE 20 MG TABLET PO SCH (10:00)
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
[2020-01-11] MEDS ORDERED: INSULIN GLARGINE,HUM.REC.ANLOG 1,000 UNIT/10 ML VIAL SUBCUT SCH (22:00)
[2020-01-11] MEDS ORDERED: INSULIN GLARGINE HUM REC ANLOG 15 UNIT SUBCUT SCH (22:00)
== END 2020-01-11 15:42 | disposition home or self-care (01) ==
LOC: ER 05:14 → EH 08:25 → 5 15:19
PROVIDERS: ADMIT Internal Medicine; ATTEND Internal Medicine
DX: J44.1 Chronic obstructive pulmonary disease with (acute) exacerbation (principal); J96.01 Acute respiratory failure with hypoxia; F17.210 Nicotine dependence, cigarettes, uncomplicated; E11.65 Type 2 diabetes mellitus with hyperglycemia; T38.0X5A Adverse effect of glucocorticoids and synthetic analogues, initial encounter; Y92.239 Unspecified place in hospital as the place of occurrence of the external cause; I10 Essential (primary) hypertension; D72.829 Elevated white blood cell count, unspecified; R79.89 Other specified abnormal findings of blood chemistry; C34.90 Malignant neoplasm of unspecified part of unspecified bronchus or lung; G89.29 Other chronic pain; M54.6 Pain in thoracic spine; F11.20 Opioid dependence, uncomplicated; Z79.899 Other long term (current) drug therapy; Z79.82 Long term (current) use of aspirin; Z82.49 Family history of ischemic heart disease and other diseases of the circulatory system; Z98.1 Arthrodesis status; Z79.84 Long term (current) use of oral hypoglycemic drugs
CPT/HCPCS: 93005; 94640 ×5; 99285; 96365; 36415 ×2; 87070; 87205; 82962 ×4; 83735; 85025; 85027; 80048; 80053; 84484; 83880; 71045; 94799 ×2; 93010; 94667; 94668; A9270 ×43; J2920 ×3; J3490; J3475; G0378; J1815; J7512; J7620

== ENCOUNTER 2020-01-29 01:17 | Emergency (ER) | payer MEDICARE, OTHER ==
[2020-01-29] MEDS ORDERED: IPRATROPIUM/ALBUTEROL 0.5-2.5 MG/3 ML AMPUL NEB ONE ×2 (01:37→03:30)
[2020-01-29 01:44] LABS: ABSOLUTE BASOPHILS # (AUTO) 0.1 10^3/uL (0.0-0.2); ABSOLUTE EOSINOPHILS # (AUTO) 0.2 10^3/uL (0.0-0.6); ABSOLUTE LYMPHOCYTES (AUTO) 1.6 10^3/uL (0.5-4.7); ABSOLUTE MONOCYTES (AUTO) 0.6 10^3/uL (0.1-1.4); ABSOLUTE NEUT (AUTO) 5.9 10^3/uL (1.7-8.2); EOSINOPHILS % (AUTO) 2.6 % (0-6); HEMATOCRIT 42.8 % (37.9-51.0); HEMOGLOBIN 14.5 g/dL (13.5-17.0); LYMPHOCYTES % (AUTO) 18.7 % (13-45); MEAN CORPUSCULAR HEMOGLOBIN 29.5 pg (27.0-33.4); MEAN CORPUSCULAR HGB CONC 33.9 g/dL (32.0-36.0); MEAN CORPUSCULAR VOLUME 87 fl (80-97); MONOCYTES % (AUTO) 7.5 % (3-13); PLATELET COUNT 311 10^3/uL (150-450); RED BLOOD COUNT 4.93 10^6/uL (4.35-5.55); RED CELL DISTRIBUTION WIDTH 14.4 % (11.5-14.0); SEGMENTED NEUTROPHILS % (AUTO) 70.2 % (42-78); TOTAL CELLS COUNTED % (AUTO) 100 %; WHITE BLOOD COUNT 8.4 10^3/uL (4.0-10.5)
[2020-01-29 02:00] LABS: ALBUMIN 4.2 g/dL (3.5-5.0); ALKALINE PHOSPHATASE 103 U/L (38-126); ANION GAP 8 (5-19); ASPARTATE AMINO TRANSFERASE 14 U/L (17-59); BILIRUBIN,DIRECT 0.3 mg/dL (0.0-0.4); BILIRUBIN,TOTAL 0.4 mg/dL (0.2-1.3); BLOOD UREA NITROGEN 16 mg/dL (7-20); CALCIUM 9.1 mg/dL (8.4-10.2); CARBON DIOXIDE 33 mmol/L (22-30); CHLORIDE 96 mmol/L (98-107); GLUCOSE 242 mg/dL (75-110); TOTAL PROTEIN 7.4 g/dL (6.3-8.2)
--- NOTE | 2020-01-29 02:21 | ER Document Report ---
Entered by CHETAN MILLS SCRIBE 01/29/20 0146 Acting as scribe for:RADHA ESCALANTE IV, MD ED General - General Chief Complaint: Breathing Difficulty Stated Complaint: DIFFICULTY BREATHING Time Seen by Provider: 01/29/20 01:45 Primary Care Provider: VÍCTOR DELGADILLO NP-C [NURSE PRACTITIONER] - Follow up as needed Mode of Arrival: Medic Information source: Patient, Emergency Med Personnel Notes: This 64 year old male patient with a history of COPD, asthma, pneumonia, and bronchitis brought in by EMS presents to the ED today with complaints of dyspnea and shortness of breath that has been ongoing all day yesterday. Patient states that it was hard to breath earlier in the day and then his "breathing started going downhill" for the rest of the day. Patient is on BiPAP and states that he is getting a little relief. Patient reports that he is a former smoker, stating that he hasn't smoked in the past x3-4 days and prior to quitting, he would only smoke approximately x5 cigarettes a day. Patient notes that he has been trying to decrease his smoking since September 2019. TRAVEL OUTSIDE OF THE [place] IN LAST 30 DAYS: No - Related Data Allergies/Adverse Reactions: epinephrine [Epinephrine] Allergy (Severe, Verified 05/06/15 12:18) Tachycardia indomethacin [Indomethacin] Allergy (Severe, Verified 05/06/15 12:18) GI BLEED Past Medical History - General Information source: Patient - Social History Smoking Status: Former Smoker Cigarette use (# per day): No Chew tobacco use (# tins/day): No Smoking Education Provided: No Lives with: Spouse/Significant other Family History: Reviewed & Not Pertinent, CAD Patient has suicidal ideation: No Patient has homicidal ideation: No - Past Medical History Cardiac Medical History: Reports: Hx Hypercholesterolemia, Hx Hypertension, Hx Heart Murmur Pulmonary Medical History: Reports: Hx Asthma, Hx Bronchitis, Hx COPD, Hx Pneumonia, Hx Respiratory Failure Endocrine Medical History: Reports: Hx Diabetes Mellitus Type 2 Malignancy Medical History: Reports Hx Lung Cancer Musculoskeletal Medical History: Reports Hx Arthritis - Multiple joints, Reports Hx Gout Psychiatric Medical History: Reports: Hx Depression Past Surgical History: Reports: Hx Orthopedic Surgery - Cervical spine fusion, Other - Bronchoscopies with biopsy - Immunizations Hx Diphtheria, Pertussis, Tetanus Vaccination: No Hx Pneumococcal Vaccination: 08/22/19 Review of Systems - Review of Systems Constitutional: No symptoms reported EENT: No symptoms reported Cardiovascular: See HPI, Dyspnea Respiratory: See HPI, Short of breath Gastrointestinal: No symptoms reported Genitourinary: No symptoms reported Male Genitourinary: No symptoms reported Musculoskeletal: No symptoms reported Skin: No symptoms reported Hematologic/Lymphatic: No symptoms reported Neurological/Psychological: No symptoms reported -: Yes All other systems reviewed and negative Physical Exam - Vital signs Vitals: Pulse Ox 100 01/29/20 01:17 Interpretation: Normal - General General appearance: Alert - AAOx3 - HEENT Head: Normocephalic, Atraumatic Eyes: Normal Pupils: PERRL - Respiratory Respiratory status: Respiratory distress - on BiPAP Chest status: Nontender Breath sounds: Decreased air movement - Diminished breath sounds in all lung au., Wheezing - Inspiratory and expiratory Chest palpation: Normal - Cardiovascular Rhythm: Regular Heart sounds: Normal auscultation Murmur: No - Abdominal Inspection: Normal Distension: No distension Bowel sounds: Normal Tenderness: Nontender Organomegaly: No organomegaly - Back Back: Normal, Nontender - Extremities General upper extremity: Normal inspection General lower extremity: Normal inspection - Neurological Neuro grossly intact: Yes - Psychological Associated symptoms: Normal affect, Normal mood - Skin Skin Temperature: Warm Skin Moisture: Dry Skin Color: Normal Course - Re-evaluation Re-evalutation: 01/29/20 05:02 Patient is off BiPAP. Patient's heart rate is 90 O2 sats 92 to 93% on room air blood pressure is 138/59. Patient is able speak in full sentences without difficulty he does have some scant wheezing on reevaluation of his lungs. Patient states he feels much better. Patient is tolerating p.o. ice chips. Results of ED MSE discussed with patient. All questions were answered prior to discharge. Emergency signs and symptoms, reasons to return to the emergency department discussed with patient. - Vital Signs Vital signs: Temp Pulse Resp BP Pulse Ox 97.8 F 14 131/61 H 97 01/29/20 01:19 01/29/20 01:27 01/29/20 01:27 01/29/20 01:27 - Laboratory Result Diagrams: 01/29/20 01:25 01/29/20 01:25 Laboratory results interpreted by me: 01/29/20 01/29/20 01:25 01:25 RDW 14.4 H Chloride 96 L Carbon Dioxide 33 H Glucose 242 H AST 14 L - Diagnostic Test Radiology reviewed: Reports reviewed - EKG Interpretation by Me Additional EKG results interpreted by me: 01/29/20 05:05 EKG obtained on 01/29/2020 at 0125 hrs. was interpreted by this MD. Findings: Sinus rhythm, rate 92, baseline artifact appears to be present, P waves proceed QRS complexes, a right bundle branch block is present, there are no obvious visible patterns of ST segment elevation or depression present to suggest acute myocardial ischemia or infarction. Impression: Sinus rhythm with right bundle branch block and nonspecific ST segments Discharge - Discharge Clinical Impression: COPD with acute exacerbation, Tobacco abuse, Tobacco abuse counseling Condition: Good Disposition: HOME, SELF-CARE Additional Instructions: Return to the Emergency Department without delay if any worse. Chronic Obstructive Lung Disease You have chronic obstructive lung disease (COPD). The symptoms come from emphysema (damage to small airways, with trapping of air in large sacks in the lung) and chronic bronchitis (repeated infection and damage to larger airways). The cause is almost always cigarette smoking, although dust exposure, asthma, and infections contribute. You should avoid fumes, dust, and smoke (especially tobacco smoke). Your condition will flare from time to time. There is no cure, but the symptoms can be treated. Bronchodilators (asthma medicine) are often helpful. Antibiotics help when infection is present. When shortness of breath is severe, we may prescribe cortisone medication. If medicine doesn't help enough, we can arrange for you to have an oxygen tank at home. Notify your doctor at once if sputum becomes thick, foul, or bloody, if you develop a fever or chest pain, or if your shortness of breath worsens. HOME CARE INSTRUCTIONS & INFORMATION: Thank you for choosing us for your medical needs. We hope you're satisfied with the care you received. After you leave, you must properly care for your problem and, at the same time, observe its progress. Any condition can change. Some illnesses can change rapidly over hours or days. If your condition worsens, return to the Emergency Department or see your physician promptly. ABOUT YOUR X-RAYS AND EKG'S: If you had an EKG or X-rays taken, they have been read by the Emergency Physician. The X-rays and EKG's will also be read by a Radiologist or Maintenance Clerk within 24 hours. If discrepancies are noted, you will be notified by telephone. Please be certain the ED has a correct telephone number & address where you can be reached. Also, realize that some fractures or abnormalities do not show up on initial X-rays. If your symptoms continue, see your physician. ABOUT YOUR LABORATORY TEST: If you had laboratory tests, the results have been reviewed by the Emergency Physician. Some test results (for example cultures) may not be available for several days. You will be contacted if any test result shows you need additional treatment. Please be certain the ED has a correct telephone number and address where you can be reached. ABOUT YOUR MEDICATIONS: You will receive instructions on how to take your medicine on the prescription label you receive. Additional information may be provided by the Pharmacy. If you have questions afterwards, call the ED for clarification or further instructions. Some prescribed medications may cause drowsiness. Do not perform tasks such as driving a car or operating machinery without consulting your Pharmacist. If you feel you need a refill of pain medication, your condition will need re-evaluation. Please do not call for a refill of any medication. ABOUT YOUR SIGNATURE: Signature of this document acknowledges to followin. Understanding that you received emergency treatment and that you may be released before al medical problems are known or treated. Please be certain the ED has a correct phone number & address where you can be reached. 2. Acknowledgement that you will arrange for follow-up care as recommended. 3. Authorization for the Emergency Physician to provide information to your follow-up Physician in order to maximize your care. AT ANY TIME, IF YOUR SYMPTOMS CHANGE SIGNIFICANTLY OR WORSEN OR YOU DEVELOP NEW SYMPTOMS, RETURN TO THE EMERGENCY DEPARTMENT IMMEDIATELY FOR RE-EVALUATION. OUR GOAL IS TO PROVIDE EXCELLENT MEDICAL CARE! WE HOPE THAT WE HAVE MET YOUR EXPECTATIONS DURING YOUR EMERGENCY DEPARTMENT VIS IT AND THAT YOU FEEL YOU HAVE RECEIVED EXCELLENT CARE! Stop Smoking You should stop smoking. The tar and chemicals in cigarette smoke are harmful. Smoking has been shown to cause: Emphysema and chronic bronchitis Lung cancer Cancer of the mouth, larynx, stomach, and pancreas Heart disease and stroke Stillbirths and miscarriage Premature aging In addition, smoking increases the chances of respiratory infections and ear infections in children of smokers, and increases the risk of cancer in persons exposed to second-hand smoke. Classes are available to help you stop smoking. If you are serious about wanting to quit, we can help arrange this therapy for you, or you can contact [facility] local lung or cancer association. Prescriptions: Prednisone [Deltasone 20 mg Tablet] 3 tab PO DAILY 4 Days #12 tablet Referrals: VÍCTRO DELGADILLO NP-C [NURSE PRACTITIONER] - 01/29/20 I personally performed the services described in the documentation, reviewed and edited the documentation which was dictated to the scribe in my presence, and it accurately records my words and actions.
--- NOTE | 2020-01-29 02:36 | RADIOLOGY REPORT (SQ) ---
EXAM DESCRIPTION: XR CHEST 1 VIEW COMPLETED DATE/TME: 01/29/2020 01:36 CLINICAL HISTORY: 64 years, Male, congestion COMPARISON: 01/08/2020 chest NUMBER OF VIEWS: 1 TECHNIQUE: Portable chest LIMITATIONS: None. FINDINGS: Heart size is normal. Atheromatous change thoracic aorta. Dwands-i-Uzax catheter in place. Osteopenia. COPD. Lungs clear. No pneumothorax IMPRESSION: COPD. Lungs are clear copyright 2010 [employer]- All Rights Reserved
[2020-01-29 05:48] VITALS: BP 131/59
--- NOTE | 2020-01-29 06:24 | EKG REPORT ---
SEVERITY:- ABNORMAL ECG - SINUS RHYTHM VENTRICULAR PREMATURE COMPLEX BIATRIAL ABNORMALITIES RIGHT BUNDLE BRANCH BLOCK : Confirmed by: Damion Bingham MD 29-Jan-2020 06:23:00
== END 2020-01-29 05:48 | disposition home or self-care (01) ==
LOC: ER 01:17
DX: J44.1 Chronic obstructive pulmonary disease with (acute) exacerbation (principal); F17.210 Nicotine dependence, cigarettes, uncomplicated; E78.00 Pure hypercholesterolemia, unspecified; I10 Essential (primary) hypertension; E11.9 Type 2 diabetes mellitus without complications; Z85.118 Personal history of other malignant neoplasm of bronchus and lung; Z98.1 Arthrodesis status
CPT/HCPCS: 93005; 94640 ×2; 99285; 36415; 85025; 80053; 71045; 93010; 94660; A9270; J7620

== ENCOUNTER → 2020-04-16 | Outpatient (CLI) | payer MEDICARE, OTHER ==
--- NOTE | 2020-04-16 16:03 | RADIOLOGY REPORT (SQ) ---
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 RADIONUCLIDE AND DOSE: 10.67 mCi F18 FDG The route of agent administration: Intravenous FASTING BLOOD SUGAR: 197 mg/dl CONTRAST TYPE AND DOSE: No CT contrast given. TECHNIQUE: Blood glucose level was verified. Above dose of FDG was injected intravenously. 2-D seg mented attenuation correction images were obtained from the base of the skull to the midthighs. Nonc ontrast CT images were obtained for attenuation correction and fusion with emission images. CT image s were performed without oral or intravenous contrast and are not sensitive for parenchymal lesions. A series of overlapping emission PET images were obtained. Images reviewed and manipulated at [facility] work station by the radiologist. Images stored on PACS. LIMITATIONS: None. FINDINGS: HEAD AND NECK: No areas of abnormal metabolic activity in the soft tissues of the head and neck. CHEST: No areas of abnormal metabolic activity in the chest. ABDOMEN AND PELVIS: The liver demonstrates homogeneous FDG uptake with an average SUV of 2.5. There is expected physiologic activity throughout the gastrointestinal and genitourinary tracts. No areas of abnormal metabolic activity are identified in the abdomen and pelvis. PROXIMAL LOWER EXTREMITIES: No areas of abnormal metabolic activity in the soft tissues of the lower extremities. BONES: No areas of abnormal metabolic activity in the imaged axial and appendicular skeleton. ADDITIONAL CT FINDINGS: The tip of the right IJ single-lumen port terminates within the SVC. There i s moderate to severe atherosclerotic calcification of the coronary arteries and mitral annulus. The left ventricle is enlarged. There is no pericardial effusion. There is re- demonstration of abrupt truncation of the left superior lobar bronchus. The opacities in the posterior aspect of the left lo wer lobe (image 89 of series 3) are unchanged. There are nonobstructive caliceal calculi in the left kidney that measure up to 3 mm in diameter. There is colonic diverticulosis without diverticulitis. OTHER: No other findings. IMPRESSION: No metabolic evidence of recurrent disease. TECHNICAL DOCUMENTATION: JOB ID: [id number] 2010 [employer]- All Rights Reserved Reading location - IP/workstation name: [email or web address]
== END ==
LOC: RAD 08:07
PROVIDERS: ATTEND Physician Assistant Medical
DX: C34.02 Malignant neoplasm of left main bronchus (principal)
CPT/HCPCS: 78815; A9552

== ENCOUNTER 2020-05-31 18:12 | Inpatient (IN) | payer MEDICARE, OTHER ==
--- NOTE | 2020-05-31 18:34 | ER Document Report ---
ED General - General Chief Complaint: Shortness Of Breath Stated Complaint: SHORTNESS OF BREATH Primary Care Provider: DIGNA DODGE PA-C [Primary Care Provider] - Follow up as needed Mode of Arrival: Medic Information source: Patient, Emergency Med Personnel, [facility] Records Notes: Patient is a 65-year-old male presenting to the emergency department chief complaint of shortness of breath. Patient states he is been having issues with shortness of breath for the past couple of days patient does have asthma COPD and stage IV lung cancer. Patient states he took multiple breathing treatments at home without resolution and called EMS. Patient further states that he is currently on prednisone. Patient denies travel history trauma history obvious sick contacts no fevers or chills nausea vomiting or diarrhea. EMS state that because of his severe respiratory distress that they opted to place the patient on CPAP, patient received 2 g of magnesium sulfate IV, 0.3 cc of subq epine phrine and 125 mg of Solu-Medrol. At time of presentation patient is breathing better but still is tachypneic and still has audible wheezes. TRAVEL OUTSIDE OF THE [place] IN LAST 30 DAYS: No - HPI Onset: Last week Onset/Duration: Persistent, Worse Quality of pain: Achy Severity: Mild Pain Level: 1 Associated symptoms: Shortness of breath, Sweating. denies: Diarrhea, Nausea, Vomiting Exacerbated by: Movement, Walking, Coughing, Deep breathing Relieved by: Denies Similar symptoms previously: Yes Recently seen / treated by doctor: No - Related Data Allergies/Adverse Reactions: epinephrine [Epinephrine] Allergy (Severe, Verified 05/06/15 12:18) Tachycardia indomethacin [Indomethacin] Allergy (Severe, Verified 05/06/15 12:18) GI BLEED Past Medical History - General Information source: Patient, Emergency Med Personnel, [facility] Records - Social History Smoking Status: Current Some Day Smoker Cigarette use (# per day): Yes Chew tobacco use (# tins/day): No Smoking Education Provided: Yes Frequency of alcohol use: None Drug Abuse: None Lives with: Family Family History: Reviewed & Not Pertinent, CAD Patient has suicidal ideation: No Patient has homicidal ideation: No - Past Medical History Cardiac Medical History: Reports: Hx Hypercholesterolemia, Hx Hypertension, Hx Heart Murmur Denies: Hx Atrial Fibrillation, Hx Congestive Heart Failure, Hx Coronary Artery Disease, Hx Heart Attack Pulmonary Medical History: Reports: Hx Asthma, Hx Bronchitis, Hx COPD, Hx Pne umonia, Hx Respiratory Failure Neurological Medical History: Denies: Hx Cerebrovascular Accident, Hx Seizures Endocrine Medical History: Reports: Hx Diabetes Mellitus Type 2. Denies: Hx Diabetes Mellitus Type 1, Hx Hyperthyroidism, Hx Hypothyroidism Malignancy Medical History: Reports Hx Lung Cancer GI Medical History: Denies: Hx Cirrhosis, Hx Crohn's Disease, Hx Hepatitis, Hx Ulcerative Colitis Musculoskeletal Medical History: Reports Hx Arthritis - Multiple joints, Reports Hx Gout Skin Medical History: Denies Hx Eczema, Denies Hx Psoriasis Psychiatric Medical History: Reports: Hx Depression Infectious Medical History: Denies: Hx Hepatitis Past Surgical History: Reports: Hx Orthopedic Surgery - Cervical spine fusion, Other - Bronchoscopies with biopsy - Immunizations Hx Diphtheria, Pertussis, Tetanus Vaccination: No Hx Pneumococcal Vaccination: 08/22/19 Review of Systems - Review of Systems Constitutional: No symptoms reported EENT: No symptoms reported Cardiovascular: No symptoms reported Respiratory: See HPI Gastrointestinal: No symptoms reported Genitourinary: No symptoms reported Male Genitourinary: No symptoms reported Musculoskeletal: No symptoms reported Skin: No symptoms reported Hematologic/Lymphatic: No symptoms reported Neurological/Psychological: No symptoms reported Physical Exam - Vital signs Vitals: Resp Pulse Ox 19 100 05/31/20 18:30 05/31/20 18:30 - Notes Notes: PHYSICAL EXAMINATION: GENERAL: Patient is a 65-year-old male with stage IV lung cancer COPD and asthma presenting for respiratory distress. HEAD: Atraumatic, normocephalic. EYES: Pupils equal round and reactive to light, extraocular movements intact, sclera anicteric, conjunctiva are normal. ENT: nares patent, oropharynx clear without exudates. Dry mucous membranes. NECK: Normal range of motion, supple without lymphadenopathy, no appreciable JVD LUNGS: Lungs demonstrate tachypnea and wheezes in all au tachycardic. HEART: Tachycardic rate and rhythm without murmurs ABDOMEN: Soft, nontender, normal bowel sounds. No guarding, no rebound. No masses appreciated. EXTREMITIES: Active full range of motion. No cyanosis. 2+ pulses x4. 1+ edema bilaterally to ankles NEUROLOGICAL: No focal neurological deficits. Moves all extremities spo ntaneously and on command. SKIN: Warm, Dry, and intact. Normal turgor, no rashes or lesions noted. Course - Re-evaluation Re-evalutation: 05/31/20 19:50 Patient has been maintained on a bus monitor while in the emergency depar tment. The patient is remained stable without signs of decompensation. Patient was placed on BiPAP. Patient has tolerated interventions without any issues. Patient will be given 125 cc of normal saline an hour. Patient has been consulted to the hospitalist for admission which hospitalist is agreeable with. Patient is stable at this time. - Vital Signs Vital signs: Temp Pulse Resp BP Pulse Ox 98.6 F 16 100 05/31/20 18:39 05/31/20 18:39 05/31/20 18:39 - Laboratory Result Diagrams: 05/31/20 18:15 05/31/20 18:15 Laboratory results interpreted by me: 05/31/20 05/31/20 05/31/20 18:15 18:15 18:15 RDW 17.1 H Sodium 132.8 L Chloride 95 L Carbon Dioxide 31 H Glucose 390 H NT-Pro-B Natriuret Pep 1940 H - Diagnostic Test Radiology reviewed: Reports reviewed - EKG Interpretation by Pa EKG shows normal: Sinus rhythm Rate: Normal [place]/QRS: RBBB Additional EKG results interpreted by me: 05/31/20 19:25 EKG is interpreted by la shows sinus rhythm 87 bpm there is a left axis deviation signs of LVH there is ST depressions in the lateral leads there is no ST elevation there is a right bundle branch block and this is all similar to prior EKG of January 29, 2020. Discharge - Discharge Clinical Impression: COPD with acute exacerbation, Diabetes mellitus type 2 in nonobese, History of lung or bronchial cancer Condition: Fair Disposition: ADMITTED OBSERVATION Admitting Provider: Rosamaria (Hospitalist) Unit Admitted: Medical Floor Referrals: DIGNA DODGE PA-C [Primary Care Provider] - Follow up as needed
[2020-05-31 18:40] LABS: ABSOLUTE BASOPHILS # (AUTO) 0.1 10^3/uL (0.0-0.2); ABSOLUTE EOSINOPHILS # (AUTO) 0.2 10^3/uL (0.0-0.6); ABSOLUTE LYMPHOCYTES (AUTO) 2.4 10^3/uL (0.5-4.7); ABSOLUTE MONOCYTES (AUTO) 0.8 10^3/uL (0.1-1.4); ABSOLUTE NEUT (AUTO) 5.9 10^3/uL (1.7-8.2); EOSINOPHILS % (AUTO) 2.5 % (0-6); HEMATOCRIT 43.2 % (37.9-51.0); HEMOGLOBIN 14.2 g/dL (13.5-17.0); LYMPHOCYTES % (AUTO) 25.8 % (13-45); MEAN CORPUSCULAR HEMOGLOBIN 28.9 pg (27.0-33.4); MEAN CORPUSCULAR HGB CONC 32.9 g/dL (32.0-36.0); MEAN CORPUSCULAR VOLUME 88 fl (80-97); PLATELET COUNT 305 10^3/uL (150-450); RED BLOOD COUNT 4.92 10^6/uL (4.35-5.55); RED CELL DISTRIBUTION WIDTH 17.1 % (11.5-14.0); SEGMENTED NEUTROPHILS % (AUTO) 62.7 % (42-78); TOTAL CELLS COUNTED % (AUTO) 100 %; WHITE BLOOD COUNT 9.4 10^3/uL (4.0-10.5)
[2020-05-31 18:41] LABS: VENOUS BLOOD BASE EXCESS 1.4 mmol/L; VENOUS BLOOD HCO3 29.5 mmol/L (20-32); VENOUS BLOOD PCO2 61.1 mmHg (35-63); VENOUS BLOOD PH 7.3 (7.30-7.42)
[2020-05-31 18:54] LABS: INTERNATIONAL RATION (INR) 0.98
[2020-05-31 18:56] LABS: ALBUMIN 3.9 g/dL (3.5-5.0); ALKALINE PHOSPHATASE 109 U/L (38-126); ANION GAP 7 (5-19); ASPARTATE AMINO TRANSFERASE 21 U/L (17-59); BILIRUBIN,TOTAL 0.5 mg/dL (0.2-1.3); BLOOD UREA NITROGEN 17 mg/dL (7-20); CALCIUM 8.9 mg/dL (8.4-10.2); CARBON DIOXIDE 31 mmol/L (22-30); CHLORIDE 95 mmol/L (98-107); GLUCOSE 390 mg/dL (75-110); POTASSIUM 4.7 mmol/L (3.6-5.0); TOTAL PROTEIN 6.7 g/dL (6.3-8.2)
[2020-05-31 19:08] LABS: CREATINE KINASE MB 2.36 ng/mL (<4.55); TROPONIN I 0.021 ng/mL
--- NOTE | 2020-05-31 19:20 | RADIOLOGY REPORT (SQ) ---
EXAM DESCRIPTION: CHEST SINGLE VIEW IMAGES COMPLETED DATE/TIME: 05/31/2020 7:00 pm REASON FOR STUDY: sob COMPARISON: 01/29/2020 EXAM PARAMETERS: NUMBER OF VIEWS: One view. TECHNIQUE: Single frontal radiographic view of the chest acquired. RADIATION DOSE: NA LIMITATIONS: None. FINDINGS: LUNGS AND PLEURA: No opacities, masses or pneumothorax. No pleural effusion. MEDIASTINUM AND HILAR STRUCTURES: No masses. Contour normal. HEART AND VASCULAR STRUCTURES: Heart normal in size. Normal vasculature. BONES: No acute findings. HARDWARE: Injection port on the right. OTHER: No other significant finding. IMPRESSION: NO ACUTE RADIOGRAPHIC FINDING IN THE CHEST. TECHNICAL DOCUMENTATION: JOB ID: [id number] 2010 [employer]- All Rights Reserved Reading location - IP/workstation name: [email or web address]
[2020-05-31] MEDS ORDERED: NORMAL SALINE 1000 ML 1,000 ML IV ONE (19:46)
[2020-05-31] MEDS ORDERED: MAGNESIUM HYDROXIDE SUSP 30 ML UDCUP PO PRN (20:11)
[2020-05-31] MEDS ORDERED: PROMETHAZINE HCL INJ 25 MG/1 ML VIAL IV PRN (20:11)
[2020-05-31] MEDS ORDERED: LEVALBUTEROL HCL NEB 0.63 MG/3 ML AMPUL NEB PRN (20:11)
[2020-05-31] MEDS ORDERED: MAG HYDROX/AL HYDROX/SIMETH SUSP 30 ML UDCUP PO PRN (20:11)
[2020-05-31] MEDS ORDERED: ACETAMINOPHEN 325 MG TABLET PO PRN (20:15)
[2020-05-31] MEDS ORDERED: MELATONIN 5 MG TABLET PO PRN (20:15)
[2020-05-31] MEDS ORDERED: INSULIN REG, HUMAN 100 UNIT/ML 3 ML VIAL (PYX) SUBCUT PRN (20:15)
[2020-05-31] MEDS ORDERED: LORAZEPAM INJ 2 MG/1 ML VIAL IV PRN (20:15)
[2020-05-31] MEDS ORDERED: NICOTINE 21 MG/24 HR PATCH.TD24 TD PRN (20:15)
[2020-05-31] MEDS ORDERED: HYDRALAZINE HCL INJ/PF 20 MG/1 ML SDV IV PRN (20:15)
[2020-05-31] MEDS ORDERED: METOPROLOL TARTRATE PF/INJ 5 MG/5 ML SDV IV PRN (20:15)
[2020-05-31] MEDS ORDERED: GUAIFENESIN SYRP 200 MG/10 ML UDC PO PRN (20:15)
[2020-05-31] MEDS ORDERED: GLUCAGON,HUMAN RECOMB 1 MG INJ IM PRN (20:17)
[2020-05-31] MEDS ORDERED: DEXTROSE 40% GEL 15 GM TUBE PO PRN ×2 (20:17)
[2020-05-31] MEDS ORDERED: DEXTROSE 50%-WATER 25 GM/50 ML DISP.SYRIN IV PRN ×2 (20:17)
[2020-05-31 22:46] LABS: CREATINE KINASE MB 2.06 ng/mL (<4.55); TROPONIN I 0.033 ng/mL
--- NOTE | 2020-05-31 23:12 | EKG REPORT ---
SEVERITY:- ABNORMAL ECG - SINUS RHYTHM PROBABLE LEFT ATRIAL ABNORMALITY RIGHT BUNDLE BRANCH BLOCK ST DEPRESSION, CONSIDER ISCHEMIA, ANT-LAT LDS : Confirmed by: Damion Bingham MD 31-May-2020 23:12:09
[2020-05-31] MEDS: LEVALBUTEROL HCL NEB 1.25 MG/3 ML AMPUL NEB SCH (23:55)
[2020-05-31] MEDS: IPRATROPIUM BROMIDE 0.02% NEB 0.5 MG/2.5 ML AMPUL NEB SCH (23:56)
[2020-06-01] MEDS: MORPHINE SULFATE 10 MG/ML INJ IV PRN ×5 (00:01→22:27)
[2020-06-01] MEDS: FAMOTIDINE 20 MG TABLET PO SCH ×3 (00:02→22:28)
[2020-06-01] MEDS: HEPARIN SOD (PORCINE) 5,000 UNIT/ML 1 ML VIAL SUBCUT SCH ×4 (00:02→22:28)
[2020-06-01] MEDS: METHYLPREDNISOLONE INJ 40 MG/1 ML SDV IV SCH ×3 (00:26→12:58)
[2020-06-01 05:14] LABS: HEMATOCRIT 40.4 % (37.9-51.0); HEMOGLOBIN 13.5 g/dL (13.5-17.0); MEAN CORPUSCULAR HEMOGLOBIN 28.8 pg (27.0-33.4); MEAN CORPUSCULAR HGB CONC 33.5 g/dL (32.0-36.0); MEAN CORPUSCULAR VOLUME 86 fl (80-97); PLATELET COUNT 266 10^3/uL (150-450); RED CELL DISTRIBUTION WIDTH 16.2 % (11.5-14.0)
--- NOTE | 2020-06-01 05:25 | PDOC H&P ---
History of Present Illness Admission Date/PCP: 05/31/2020 19:51 DIGNA WHITLEY PA-C Patient complains of: Dyspnea History of Present Illness: RADHA TEJEDA is a 65 year old male who presented to the emergency room with a one-week history of dyspnea. He admits gradually worsening dyspnea over the course of the last week becoming severe over the last 2 days. His dyspnea has been accompanied by wheezing and associated with episodes of diaphoresis. His dyspnea was worsened by exertion or coughing and became nonresponsive to his oral prednisone and home nebulizer treatments today. He denies other associated or accompanying signs and symptoms. He admits numerous prior similar episodes related to his COPD. He admits underlying stage IV lung cancer for which he is receiving chemotherapy with Dr. Ram. He has not identified any additional aggravating or ameliorating factors for his dyspnea. EMS found him to have a O2 sat of 65% on room air at home and treated him with subcutaneous epinephrine 0.3 mL, IV magnesium sulfate 2 g and Solu-Medrol 125 mg intravenously in route to the hospital. In the emergency room he remained tachypneic and tachycardic with respiratory distress requiring use of his accessory muscles of respiration on arrival. He was placed on BiPAP and has responded well to ongoing treatment. He was subsequently admitted to the hospital for further evaluation and treatment. Past Medical History Cardiac Medical History: Reports: Hyperlipidema, Hypertension, Heart Murmur Denies: Atrial Fibrillation, Congestive Heart Failure, Coronary Artery Disease, Myocardial Infarction Pulmonary Medical History: Reports: Asthma, Bronchitis, Chronic Obstructive Pulmonary Disease (COPD), Pneumonia, Respiratory Failure EENT Medical History: Denies: Cataracts, Ears - Hearing aids Neurological Medical History: Denies: Hemorrhagic CVA, Ischemic CVA, Seizures Endocrine Medical History: Reports: Diabetes Mellitus Type 2 Denies: Diabetes Mellitus Type 1, Hyperthyroidism, Hypothyroidism Renal/ Medical History: Denies: Chronic Kidney Disease, Nephrolithiasis Malignancy Medical History: Reports: Lung Cancer - Stage IV on chemotherapy GI Medical History: Denies: Cirrhosis, Crohn's Disease, Hepatitis, Peptic Ulcer Disease, Ulcera tive Colitis Musculoskeltal Medical History: Reports: Arthritis - Osteoarthritis and gout affecting multiple joints, Gout Skin Medical History: Denies: Eczema, Psoriasis Psychiatric Medical History: Reports: Depression, Tobacco Dependency Denies: Alcohol Dependency, Substance Abuse Traumatic Medical History: Reports: None Hematology: Denies: Anemia, Bleeding Tendencies Infectious Medical History: Reports: None Past Surgical History Past Surgical History: Reports: Orthopedic Surgery - Cervical spine fusion, Other - Bronchoscopies with biopsy Social History Lives with: Family Smoking Status: Current Some Day Smoker Electronic Cigarette use?: No Frequency of Alcohol Use: Rare Hx Recreational Drug Use: No Drugs: None Hx Prescription Drug Abuse: No - Advance Directive Resuscitation Status: Full Code Surrogate healthcare decision maker:: Daniela Tejeda Family History Family History: CAD Parental Family History Reviewed: Yes Children Family History Reviewed: No Sibling(s) Family History Reviewed.: Yes Medication/Allergy Home Medications: Bupropion HCl [Wellbutrin Xl 150 mg 24hr Tablet] 150 mg PO Q12 11/15/19 Ipratropium/Albuterol Sulfate [Duoneb 3 ml Ampul] 3 ml NEB RTQIDP PRN 11/15/19 Metoprolol Succinate [Toprol Xl 25 mg Tab.sr] 12.5 mg PO Q12 11/15/19 Saxagliptin HCl [Onglyza] 2.5 mg PO DAILY 11/15/19 Oxycodone HCl [Oxy-Ir 5 mg Tablet] 30 mg PO Q4HP PRN tablet 11/20/19 Albuterol Sulfate [Albuterol Sulfate Hfa] 2 puff IH Q6HP PRN 01/08/20 Aspirin [Ecotrin 81 mg EC Tablet] 81 mg PO DAILY 01/08/20 Insulin Glargine,Hum.rec.anlog [Lantus (Pyxis) Insulin 100 Unit/1 ml 10 ml] 15 units SUBCUT Q12 01/08/20 Ipratropium/Albuterol Sulfate [Combivent Respimat 4 gm Mdi] 1 puff IH QIDP PRN MDD 6 PUFFS 01/08/20 Lisinopril [Prinivil 10 mg Tablet] 10 mg PO QHS 01/08/20 Metformin HCl 1,000 mg PO BIDBS 01/08/20 Nivolumab [Opdivo 100 mg/10 ml Vial] 0 mg IV .[id number] 01/08/20 Prednisone [Deltasone 20 mg Tablet] 40 mg PO DAILY #10 tablet 01/11/20 Prednisone [Deltasone 20 mg Tablet] 3 tab PO DAILY 4 Days #12 tablet 01/29/20 Allergies/Adverse Reactions: epinephrine [Epinephrine] Allergy (Severe, Verified 05/06/15 12:18) Tachycardia indomethacin [Indomethacin] Allergy (Severe, Verified 05/06/15 12:18) GI BLEED Review of Systems Constitutional: ABSENT: chills, fever(s) Eyes: ABSENT: visual disturbances, other - Eye pain Ears: ABSENT: hearing changes, other - Ear pain Nose, Mouth, and Throat: ABSENT: headache(s), sore throat Cardiovascular: PRESENT: as per HPI, dyspnea on exertion. ABSENT: chest pain, edema, orthropnea, palpitations Respiratory: PRESENT: as per HPI, cough, dyspnea. ABSENT: hemoptysis, sputum Gastrointestinal: ABSENT: abdominal pain, constipation, diarrhea, nausea, vomiting Genitourinary: ABSENT: dysuria, hematuria Musculoskeletal: PRESENT: back pain - Chronic due to arthritis, other - Chronic pain in multiple joints due to arthritis. ABSENT: joint swelling Integumentary: ABSENT: pruritus, rash Neurological: ABSENT: confusion, convulsions, focal weakness, memory loss, syncope Psychiatric: ABSENT: anxiety, depression Endocrine: ABSENT: cold intolerance, heat intolerance Hematologic/Lymphatic: ABSENT: easy bleeding, easy bruising Allergic/Immunologic: ABSENT: seasonal rhinorrhea Physical Exam Vital Signs: Temp Pulse Resp BP Pulse Ox 98.6 F 16 100 05/31/20 18:39 05/31/20 18:39 05/31/20 18:39 Intake & Output 05/29/20 05/30/20 05/31/20 23:59 23:59 23:59 Weight 70.76 kg General appearance: PRESENT: no acute distress, cooperative, other - On BiPAP at the time of my evaluation Head exam: PRESENT: atraumatic, normocephalic Eye exam: PRESENT: conjunctiva pink. ABSENT: conjunctival injection, scleral icterus Ear exam: PRESENT: normal external ear exam. ABSENT: bleeding, drainage Mouth exam: PRESENT: dry mucosa, neck supple Neck exam: ABSENT: thyromegaly, tracheal deviation Respiratory exam: PRESENT: decreased breath sounds - Moderately decreased breath sounds throughout all au, prolonged expiratory phas - Moderately prolonged expiratory phase in all au, symmetrical, wheezes - Expiratory wheezes noted in all au, other - On BiPAP at the time of my evaluation Cardiovascular exam: PRESENT: RRR. ABSENT: clicks, gallop, rubs Pulses: PRESENT: normal radial pulses, normal dorsalis pedis pul Vascular exam: PRESENT: normal capillary refill. ABSENT: pallor GI/Abdominal exam: PRESENT: normal bowel sounds, soft Rectal exam: PRESENT: deferred Extremities exam: ABSENT: joint swelling, pedal edema Musculoskeletal exam: ABSENT: deformity, dislocation Neurological exam: PRESENT: alert, oriented to person, oriented to place, oriented to time, oriented to situation, CN II-XII grossly intact. ABSENT: motor sensory deficit Psychiatric exam: PRESENT: appropriate affect, normal mood Skin exam: PRESENT: dry, intact, warm. ABSENT: jaundice, rash, urticaria Results Laboratory Results: 05/31/20 18:15 05/31/20 18:15 05/31/20 05/31/20 05/31/20 18:15 18:15 18:15 WBC 9.4 RBC 4.92 Hgb 14.2 Hct 43.2 MCV 88 MCH 28.9 MCHC 32.9 RDW 17.1 H Plt Count 305 Seg Neutrophils % 62.7 VBG pH VBG pCO2 VBG HCO3 VBG Base Excess Sodium 132.8 L Potassium 4.7 Chloride 95 L Carbon Dioxide 31 H Anion Gap 7 BUN 17 Creatinine 0.64 Est GFR ( Amer) > 60 Glucose 390 H Lactic Acid 1.2 Calcium 8.9 Total Bilirubin 0.5 AST 21 Alkaline Phosphatase 109 Total Protein 6.7 Albumin 3.9 05/31/20 18:15 WBC RBC Hgb Hct MCV MCH MCHC RDW Plt Count Seg Neutrophils % VBG pH 7.30 VBG pCO2 61.1 VBG HCO3 29.5 VBG Base Excess 1.4 Sodium Potassium Chloride Carbon Dioxide Anion Gap BUN Creatinine Est GFR ( Amer) Glucose Lactic Acid Calcium Total Bilirubin AST Alkaline Phosphatase Total Protein Albumin 05/31/20 18:15 CK-MB (CK-2) 2.36 Troponin I 0.021 NT-Pro-B Natriuret Pep 1940 H Impressions: Chest X-Ray 05/31/20 18:29 IMPRESSION: NO ACUTE RADIOGRAPHIC FINDING IN THE CHEST. Assessment and Plan - Diagnosis (1) COPD exacerbation Is this a current diagnosis for this admission?: Yes (2) Acute respiratory failure with hypoxia Is this a current diagnosis for this admission?: Yes (3) Primary lung cancer with metastasis from lung to other site Qualifiers: Laterality: unspecified laterality Qualified Code(s): C34.90 - Malignant neoplasm of unspecified part of unspecified bronchus or lung Is this a current diagnosis for this admission?: Yes (4) Diabetes mellitus type 2 in nonobese Is this a current diagnosis for this admission?: Yes (5) Essential hypertension Is this a current diagnosis for this admission?: Yes (6) Tobacco dependence Is this a current diagnosis for this admission?: Yes - Plan Summary Summary: Patient will be admitted to the medical floor where he received routine supportive and symptomatic cares. He will receive supplemental oxygen via noninvasive airway pressure support devices and/or nasal cannula as needed to maintain an adequate oxygen saturation and alleviate respiratory distress. He will receive an aggressive pulmonary toilet utilizing nebulized Xopenex, Atrovent and Pulmicort. He will receive a continued burst dose of IV Solu- Medrol with 40 mg IV every 6 hours x3 doses. He will use Ativan 1 mg IV every 4 hours as needed for anxiety or restlessness. He will use morphine sulfate 2 to 4 mg IV every 2 hours as needed pain. Before meals and at bedtime Accu-Cheks will be performed with sliding scale insulin for hyperglycemia and a hypoglycemic protocol in place. He will be continued on a cardiac and diabetic restricted diet. He will receive Levaquin 750 mg p.o. daily x4 days. CBC's, metabolic profiles, magnesium levels, arterial and/or venous blood gases and other laboratory and/or radiographic evaluations will be obtained as appropriate. Smoking cessation is advised and counseled briefly at the bedside. A nicotine replacement patch will be available for the patient's use, if desired. - Time Time Spent with patient: 15-24 minutes Smoking Cessation Education: 3 to 10 minutes Medications reviewed and adjusted accordingly: Yes Anticipated discharge: Home - Inpatient Certification Based on my medical assessment, after consideration of the patient's comorbidities, presenting symptoms, or acuity I expect that the services needed warrant INPATIENT care.: Yes I certify that my determination is in accordance with my understanding of Medicare's requirements for reasonable and necessary INPATIENT services [42 CFR 412.3e].: Yes Medical Necessity: Significant Comorbidiites Make Outpatient Treatment Too Risky, Need Close Monitoring Due to Risk of Patient Decompensation, Need for Nebulizer Therapy and Monitoring of Response, Risk of Complication if Not Cared For in Hospital
[2020-06-01 05:38] LABS: ANION GAP 10 (5-19); BLOOD UREA NITROGEN 19 mg/dL (7-20); CALCIUM 8.5 mg/dL (8.4-10.2); CARBON DIOXIDE 27 mmol/L (22-30); CHLORIDE 96 mmol/L (98-107); GLUCOSE 319 mg/dL (75-110); POTASSIUM 5.1 mmol/L (3.6-5.0)
[2020-06-01 05:45] LABS: CREATINE KINASE MB 1.91 ng/mL (<4.55); TROPONIN I 0.017 ng/mL
[2020-06-01] MEDS: LEVALBUTEROL HCL NEB 1.25 MG/3 ML AMPUL NEB SCH ×2 (08:07→15:38)
[2020-06-01] MEDS: BUDESONIDE NEB 0.5 MG/2 ML AMPUL NEB SCH ×2 (08:08→20:44)
[2020-06-01] MEDS: IPRATROPIUM BROMIDE 0.02% NEB 0.5 MG/2.5 ML AMPUL NEB SCH ×2 (08:08→15:38)
[2020-06-01] MEDS: LEVOFLOXACIN 750 MG TABLET PO SCH (09:20)
[2020-06-01] MEDS: DOCUSATE SODIUM 100 MG CAPSULE PO SCH ×2 (09:20→17:25)
[2020-06-01 11:41] LABS: CREATINE KINASE MB 2.28 ng/mL (<4.55); TROPONIN I 0.014 ng/mL
--- NOTE | 2020-06-01 16:25 | PDOC PROGRESS REPORT ---
Subjective Progress Note for:: 06/01/20 Subjective:: Patient continues to complain of NICHOLS Reason For Visit: ACUTE EXACERBATION WITH COPD, ACUTE RESPIRATORY FAILURE Physical Exam Vital Signs: Temp Pulse Resp BP Pulse Ox 98.1 F 85 20 132/67 H 96 06/01/20 00:00 06/01/20 08:10 06/01/20 08:10 06/01/20 00:00 06/01/20 08:10 Intake & Output 05/31/20 06/01/20 06/02/20 06:59 06:59 06:59 Intake Total 1444 Output Total 400 Balance 1044 Weight 68.8 kg General appearance: PRESENT: cooperative, mild distress Head exam: PRESENT: atraumatic, normocephalic Eye exam: PRESENT: conjunctiva pink Mouth exam: PRESENT: moist, tongue midline Neck exam: PRESENT: JVD Respiratory exam: PRESENT: decreased breath sounds, prolonged expiratory phas, other - Breath sounds coarse. Air entry diminished at the bases bilaterally. ABSENT: accessory muscle use, crackles, rhonchi, wheezes Cardiovascular exam: PRESENT: RRR Vascular exam: PRESENT: normal capillary refill GI/Abdominal exam: PRESENT: normal bowel sounds, soft. ABSENT: distended, guarding, tenderness Rectal exam: PRESENT: deferred Extremities exam: PRESENT: full ROM. ABSENT: calf tenderness, pedal edema Musculoskeletal exam: PRESENT: full ROM Neurological exam: PRESENT: alert, awake, oriented to person, oriented to place, oriented to time, oriented to situation Psychiatric exam: PRESENT: appropriate affect, normal mood. ABSENT: agitated, anxious Skin exam: PRESENT: dry, normal color, warm Results Laboratory Results: 06/01/20 04:16 06/01/20 04:16 05/31/20 05/31/20 05/31/20 18:15 18:15 18:15 WBC 9.4 RBC 4.92 Hgb 14.2 Hct 43.2 MCV 88 MCH 28.9 MCHC 32.9 RDW 17.1 H Plt Count 305 Seg Neutrophils % 62.7 VBG pH VBG pCO2 VBG HCO3 VBG Base Excess Sodium 132.8 L Potassium 4.7 Chloride 95 L Carbon Dioxide 31 H Anion Gap 7 BUN 17 Creatinine 0.64 Est GFR ( Amer) > 60 Glucose 390 H Lactic Acid 1.2 Calcium 8.9 Magnesium Total Bilirubin 0.5 AST 21 Alkaline Phosphatase 109 Total Protein 6.7 Albumin 3.9 05/31/20 06/01/20 06/01/20 18:15 04:16 04:16 WBC 6.0 RBC 4.70 Hgb 13.5 Hct 40.4 MCV 86 MCH 28.8 MCHC 33.5 RDW 16.2 H Plt Count 266 Seg Neutrophils % VBG pH 7.30 VBG pCO2 61.1 VBG HCO3 29.5 VBG Base Excess 1.4 Sodium 133.1 L Potassium 5.1 H Chloride 96 L Carbon Dioxide 27 Anion Gap 10 BUN 19 Creatinine 0.48 L Est GFR ( Amer) > 60 Glucose 319 H Lactic Acid Calcium 8.5 Magnesium 2.1 Total Bilirubin AST Alkaline Phosphatase Total Protein Albumin 05/31/20 05/31/20 05/31/20 18:15 21:50 21:50 Creatine Kinase 36 L CK-MB (CK-2) 2.36 2.06 Troponin I 0.021 0.033 NT-Pro-B Natriuret Pep 1940 H 06/01/20 06/01/20 06/01/20 04:16 04:16 10:43 Creatine Kinase 34 L 34 L CK-MB (CK-2) 1.91 Troponin I 0.017 NT-Pro-B Natriuret Pep 06/01/20 10:43 Creatine Kinase CK-MB (CK-2) 2.28 Troponin I 0.014 NT-Pro-B Natriuret Pep Impressions: Chest X-Ray 05/31/20 18:29 IMPRESSION: NO ACUTE RADIOGRAPHIC FINDING IN THE CHEST. Assessment and Plan - Diagnosis (1) Acute respiratory failure with hypoxia Is this a current diagnosis for this admission?: Yes Plan: Patient received 1 dose of methylprednisolone in the ED Continue budesonide 0.5 mg nebs twice daily Continue levalbuterol 1.25 mg nebs every 8 hours Continue ipratropium 0.5 mg nebs every 8 hours Supplemental O2, titrate/wean as needed SARS-CoV-2 sent, results pending -low index of suspicion given patient's COPD and lung cancer histories Add ascorbic acid 500 mg p.o. twice daily and zinc sulfate 220 mg p.o. daily Keep patient on COVID unit at this time (2) COPD with acute exacerbation Is this a current diagnosis for this admission?: Yes Plan: Inhaled steroids, bronchodilators, and O2 as noted above Continue levofloxacin 750 mg p.o. daily (3) Tobacco dependence Is this a current diagnosis for this admission?: Yes Plan: Smoking cessation counseling provided Continue nicotine patch (4) History of lung or bronchial cancer Is this a current diagnosis for this admission?: Yes Plan: Discussed risks of ongoing tobacco abuse with patient who states he is well aware (5) Essential hypertension Is this a current diagnosis for this admission?: Yes Plan: Restart home antihypertensive therapy (metoprolol succinate 12.5 mg p.o. twice daily) Continue hydralazine 20 mg IV every 4 hours as needed systolic blood pressure greater than 160 (6) Dyslipidemia Is this a current diagnosis for this admission?: Yes Plan: Restart home lipid-lowering agent (atorvastatin 40 mg p.o. daily) (7) DM II (diabetes mellitus, type II), controlled Qualifiers: Diabetes mellitus shelter insulin use: without intermediate project manager use Is this a current diagnosis for this admission?: Yes Plan: Patient states that he was recently started on glargine insulin 10 units subcutaneously at bedtime Resume above-noted insulin Continue FS BS with SSI correction scale (8) Chronic pain syndrome Is this a current diagnosis for this admission?: Yes Plan: Patient receives chronic pain management from his oncologist Resume home analgesic regimen (oxycodone 30 mg p.o. every 4 hours - MME = 270) (9) Hyponatremia Is this a current diagnosis for this admission?: Yes Plan: Patient is asymptomatic No treatment indicated at this time Monitor (10) Hyperkalemia Is this a current diagnosis for this admission?: Yes Plan: Hyperkalemia is mild and asymptomatic Hopefully as patient's blood sugars are treated with insulin his potassium will trend back to normal range Monitor - Time Time Spent with patient: 25-34 minutes Medications reviewed and adjusted accordingly: Yes Anticipated discharge: Home
[2020-06-01] MEDS: INSULIN LISPRO 100 UNIT/ML 3 ML VIAL SUBCUT SCH ×2 (17:24→22:56)
[2020-06-01] MEDS: ASCORBIC ACID 500 MG TABLET PO SCH (17:25)
[2020-06-01] MEDS: METOPROLOL SUCCINATE 25 MG TAB.SR.24H PO SCH (17:25)
[2020-06-01] MEDS: ZINC SULFATE 220 MG CAPSULE PO SCH (17:25)
--- NOTE | 2020-06-01 18:35 | Progress Note ---
Provider Note Provider Note: Cultures reviewed. One blood culture with GPC in clusters, staph species. We will add vancomycin pending second culture results and sensitivities.
[2020-06-01] MEDS ORDERED: VANCOMYCIN HCL 0 MG in DEXTROSE 5%-WATER 250 ML IV NR (18:45)
[2020-06-01] MEDS ORDERED: VANCOMYCIN HCL INJ 1000 MG VIAL INJ PRN (19:13)
[2020-06-01] MEDS ORDERED: MORPHINE SULFATE 10 MG/ML INJ ONE (19:53)
[2020-06-01] MEDS ORDERED: MORPHINE SULFATE 10 MG/ML INJ IV PRN ×2 (20:19)
[2020-06-01] MEDS ORDERED: INSULIN GLARGINE,HUM.REC.ANLOG 1,000 UNIT/10 ML VIAL SUBCUT SCH (22:00)
[2020-06-01] MEDS ORDERED: VANCOMYCIN HCL INJ 1000 MG VIAL ONE (22:24)
[2020-06-01] MEDS: BUPROPION HCL 100 MG TABLET PO SCH (22:28)
[2020-06-01] MEDS: ATORVASTATIN CALCIUM 40 MG TABLET PO SCH (22:28)
[2020-06-01] MEDS: VANCOMYCIN HCL 1,000 MG in DEXTROSE 5%-WATER 250 ML IV SCH (22:29)
[2020-06-02] MEDS: IPRATROPIUM BROMIDE 0.02% NEB 0.5 MG/2.5 ML AMPUL NEB SCH ×4 (00:24→23:40)
[2020-06-02] MEDS: LEVALBUTEROL HCL NEB 1.25 MG/3 ML AMPUL NEB SCH ×4 (00:24→23:40)
[2020-06-02 01:34] LABS: APPEARANCE,URINE CLEAR; BILIRUBIN,URINE NEGATIVE (NEGATIVE); COLOR,URINE STRAW; GLUCOSE, URINE >=500 mg/dL (NEGATIVE); KETONES,URINE TRACE mg/dL (NEGATIVE); PROTEIN,URINE NEGATIVE (NEGATIVE); URINE SPECIFIC GRAVITY 1.015; UROBILINOGEN,URINE NEGATIVE mg/dL (<2.0)
[2020-06-02] MEDS: MORPHINE SULFATE 10 MG/ML INJ IV PRN ×5 (05:25→21:25)
[2020-06-02] MEDS: BUPROPION HCL 100 MG TABLET PO SCH ×3 (05:45→21:16)
[2020-06-02] MEDS: METOPROLOL SUCCINATE 25 MG TAB.SR.24H PO SCH ×2 (05:45→17:25)
[2020-06-02] MEDS: HEPARIN SOD (PORCINE) 5,000 UNIT/ML 1 ML VIAL SUBCUT SCH ×3 (05:46→21:17)
[2020-06-02 06:19] LABS: HEMATOCRIT 39.4 % (37.9-51.0); HEMOGLOBIN 13.3 g/dL (13.5-17.0); MEAN CORPUSCULAR HEMOGLOBIN 28.9 pg (27.0-33.4); MEAN CORPUSCULAR HGB CONC 33.8 g/dL (32.0-36.0); MEAN CORPUSCULAR VOLUME 86 fl (80-97); PLATELET COUNT 260 10^3/uL (150-450); RED BLOOD COUNT 4.61 10^6/uL (4.35-5.55); RED CELL DISTRIBUTION WIDTH 16.4 % (11.5-14.0); WHITE BLOOD COUNT 10.5 10^3/uL (4.0-10.5)
[2020-06-02 07:01] LABS: ALBUMIN 3.2 g/dL (3.5-5.0); ALKALINE PHOSPHATASE 76 U/L (38-126); ANION GAP 5 (5-19); ASPARTATE AMINO TRANSFERASE 20 U/L (17-59); BILIRUBIN,TOTAL 0.3 mg/dL (0.2-1.3); BLOOD UREA NITROGEN 19 mg/dL (7-20); CALCIUM 8.8 mg/dL (8.4-10.2); CARBON DIOXIDE 32 mmol/L (22-30); CHLORIDE 96 mmol/L (98-107); GLUCOSE 244 mg/dL (75-110); POTASSIUM 4.1 mmol/L (3.6-5.0); TOTAL PROTEIN 5.9 g/dL (6.3-8.2)
[2020-06-02] MEDS: BUDESONIDE NEB 0.5 MG/2 ML AMPUL NEB SCH ×2 (07:55→20:42)
[2020-06-02] MEDS: INSULIN LISPRO 100 UNIT/ML 3 ML VIAL SUBCUT SCH ×4 (08:19→21:17)
[2020-06-02] MEDS: VANCOMYCIN HCL 1,000 MG in DEXTROSE 5%-WATER 250 ML IV SCH (08:38)
[2020-06-02] MEDS: DOCUSATE SODIUM 100 MG CAPSULE PO SCH ×2 (09:15→17:26)
[2020-06-02] MEDS: FAMOTIDINE 20 MG TABLET PO SCH ×2 (09:15→21:18)
[2020-06-02] MEDS: ASPIRIN 81 MG TABLET, ENT COATED PO SCH (09:15)
[2020-06-02] MEDS: ASCORBIC ACID 500 MG TABLET PO SCH ×2 (09:15→17:26)
[2020-06-02] MEDS: ZINC SULFATE 220 MG CAPSULE PO SCH (09:16)
[2020-06-02] MEDS: LEVOFLOXACIN 750 MG TABLET PO SCH (09:18)
--- NOTE | 2020-06-02 15:58 | PDOC PROGRESS REPORT ---
Subjective Progress Note for:: 06/02/20 Subjective:: Patient states that earlier in the morning he had been "episode" where he felt his breathing was significantly worse. Currently, he states that he feels that he is back to how he felt yesterday Reason For Visit: ACUTE EXACERBATION WITH COPD, ACUTE RESPIRATORY Physical Exam Vital Signs: Temp Pulse Resp BP Pulse Ox 98.1 F 82 16 105/64 95 06/02/20 11:06 06/02/20 11:06 06/02/20 11:06 06/02/20 11:06 06/02/20 11:06 Intake & Output 06/01/20 06/02/20 06/03/20 06:59 06:59 06:59 Intake Total 1444 1474 2702 Output Total 400 975 400 Balance 9501 518 5034 Weight 68.8 kg 68.5 kg General appearance: PRESENT: cooperative, mild distress, well-nourished Head exam: PRESENT: atraumatic, normocephalic Eye exam: PRESENT: conjunctiva pink Mouth exam: PRESENT: moist, tongue midline Neck exam: ABSENT: JVD Respiratory exam: PRESENT: decreased breath sounds - Air entry diminished throughout but especially at bases bilaterally. Breath sounds coarse, prolonged expiratory phas, symmetrical, wheezes. ABSENT: accessory muscle use Cardiovascular exam: PRESENT: RRR GI/Abdominal exam: PRESENT: normal bowel sounds, soft. ABSENT: distended, ten derness Rectal exam: PRESENT: deferred Extremities exam: PRESENT: full ROM. ABSENT: calf tenderness, pedal edema Musculoskeletal exam: PRESENT: ambulatory Neurological exam: PRESENT: alert, awake, oriented to person, oriented to place, oriented to time, oriented to situation, normal gait Psychiatric exam: PRESENT: appropriate affect, normal mood. ABSENT: agitated, anxious Skin exam: PRESENT: dry, normal color, warm Results Laboratory Results: 06/02/20 05:40 06/02/20 05:40 06/02/20 06/02/20 06/02/20 00:20 05:40 05:40 WBC 10.5 RBC 4.61 Hgb 13.3 L Hct 39.4 MCV 86 MCH 28.9 MCHC 33.8 RDW 16.4 H Plt Count 260 Sodium 133.0 L Potassium 4.1 Chloride 96 L Carbon Dioxide 32 H Anion Gap 5 BUN 19 Creatinine 0.55 Est GFR ( Amer) > 60 Glucose 244 H Calcium 8.8 Total Bilirubin 0.3 AST 20 Alkaline Phosphatase 76 Total Protein 5.9 L Albumin 3.2 L Urine Color STRAW Urine Appearance CLEAR Urine pH 6.0 Ur Specific Morton 1.015 Urine Protein NEGATIVE Urine Glucose (UA) >=500 H Urine Ketones TRACE H Urine Blood NEGATIVE 05/31/20 18:15 Blood Blood Culture (PCR) - Final Staphylococcus Species 05/31/20 05/31/20 05/31/20 18:15 21:50 21:50 Creatine Kinase 36 L CK-MB (CK-2) 2.36 2.06 Troponin I 0.021 0.033 NT-Pro-B Natriuret Pep 1940 H 06/01/20 06/01/20 06/01/20 04:16 04:16 10:43 Creatine Kinase 34 L 34 L CK-MB (CK-2) 1.91 Troponin I 0.017 NT-Pro-B Natriuret Pep 06/01/20 10:43 Creatine Kinase CK-MB (CK-2) 2.28 Troponin I 0.014 NT-Pro-B Natriuret Pep Impressions: Chest X-Ray 05/31/20 18:29 IMPRESSION: NO ACUTE RADIOGRAPHIC FINDING IN THE CHEST. Assessment and Plan - Diagnosis (1) Acute respiratory failure with hypoxia Is this a current diagnosis for this admission?: Yes Plan: Patient received 1 dose of methylprednisolone in the ED Air movement decreased today Add dexamethasone 2 mg IV every 8 hours Continue budesonide 0.5 mg nebs twice daily Continue levalbuterol 1.25 mg nebs every 8 hours Continue ipratropium 0.5 mg nebs every 8 hours Supplemental O2, titrate/wean as needed SARS-CoV-2 sent, results pending Continue ascorbic acid 500 mg p.o. twice daily and zinc sulfate 220 mg p.o. daily Add vitamin D 2000 units p.o. daily Keep patient on COVID unit at this time (2) COPD with acute exacerbation Is this a current diagnosis for this admission?: Yes Plan: Inhaled steroids, bronchodilators, and O2 as noted above Add IV steroids (will use dexamethasone given recent literature reporting benefits in patients with COVID, if patient found to be negative will likely change to methylprednisolone) Continue levofloxacin 750 mg p.o. daily (3) Tobacco dependence Is this a current diagnosis for this admission?: Yes Plan: Smoking cessation counseling reinforced Continue nicotine patch (4) History of lung or bronchial cancer Is this a current diagnosis for this admission?: Yes Plan: Reinforced risks of ongoing tobacco abuse with patient who states he is well aware (5) Essential hypertension Is this a current diagnosis for this admission?: Yes Plan: Continue metoprolol succinate 12.5 mg p.o. twice daily Continue hydralazine 20 mg IV every 4 hours as needed systolic blood pressure greater than 160 (6) Dyslipidemia Is this a current diagnosis for this admission?: Yes Plan: Continue atorvastatin 40 mg p.o. daily at bedtime (7) DM II (diabetes mellitus, type II), controlled Qualifiers: Diabetes mellitus long term care phlebotomist insulin use: without intermediate use Is this a current diagnosis for this admission?: Yes Plan: Hemoglobin A1c 11.4 Patient states that he was recently started on glargine insulin 10 units subcutaneously at bedtime Patient has required significant doses of SSI in addition to the 10 units of glargine given last p.m. Increase glargine insulin to 15 units subcutaneously at at bedtime, will likely need further titration -expect glucose to increase now that he is on steroids Continue FS BS with SSI correction scale (8) Chronic pain syndrome Is this a current diagnosis for this admission?: Yes Plan: Patient receives chronic pain management from his oncologist Continue oxycodone 30 mg p.o. every 4 hours (MME = 270) (9) Hyponatremia Is this a current diagnosis for this admission?: Yes Plan: Patient is asymptomatic No treatment indicated at this time Monitor (10) Hyperkalemia Is this a current diagnosis for this admission?: Yes Plan: Resolved Monitor (11) Bacteremia Is this a current diagnosis for this admission?: Yes Plan: Blood culture from 05/31/2020 with 1/2 bottles staph species (ASSISTANT PRESS OPERATOR), possible c ontaminant Vancomycin added on 06/01/2020 Repeat blood cultures today Check procalcitonin Continue vancomycin for now - Time Time Spent with patient: 25-34 minutes Anticipated discharge: Home
[2020-06-02] MEDS: CHOLECALCIFEROL (D3) 1,000 UNIT (25 MCG) TABLET PO SCH (16:42)
[2020-06-02] MEDS ORDERED: DEXAMETHASONE SOD PHOSPHATE INJ 4 MG/1 ML VIAL ONE (17:06)
[2020-06-02] MEDS: DEXAMETHASONE SOD PHOSPHATE INJ 4 MG/1 ML VIAL IV SCH (17:26)
[2020-06-02 17:30] LABS: BLOOD UREA NITROGEN 21 mg/dL (7-20); CALCIUM 8.6 mg/dL (8.4-10.2); CARBON DIOXIDE 33 mmol/L (22-30); CHLORIDE 96 mmol/L (98-107); GLUCOSE 192 mg/dL (75-110); POTASSIUM 4.4 mmol/L (3.6-5.0)
[2020-06-02 17:36] LABS: ANION GAP 4 (5-19)
[2020-06-02] MEDS: VANCOMYCIN HCL 1,000 MG in NORMAL SALINE 250 ML IV SCH (20:55)
[2020-06-02] MEDS: ATORVASTATIN CALCIUM 40 MG TABLET PO SCH (21:18)
[2020-06-02] MEDS ORDERED: INSULIN GLARGINE,HUM.REC.ANLOG 1,000 UNIT/10 ML VIAL SUBCUT SCH (22:00)
[2020-06-03] MEDS: DEXAMETHASONE SOD PHOSPHATE INJ 4 MG/1 ML VIAL IV SCH ×3 (01:00→17:20)
[2020-06-03] MEDS: MORPHINE SULFATE 10 MG/ML INJ IV PRN ×4 (01:41→12:06)
[2020-06-03] MEDS: BUPROPION HCL 100 MG TABLET PO SCH ×3 (05:25→21:51)
[2020-06-03] MEDS: HEPARIN SOD (PORCINE) 5,000 UNIT/ML 1 ML VIAL SUBCUT SCH ×3 (05:25→21:52)
[2020-06-03] MEDS: METOPROLOL SUCCINATE 25 MG TAB.SR.24H PO SCH ×2 (05:26→17:19)
[2020-06-03] MEDS: INSULIN LISPRO 100 UNIT/ML 3 ML VIAL SUBCUT SCH ×4 (07:57→21:52)
[2020-06-03] MEDS: VANCOMYCIN HCL 1,000 MG in NORMAL SALINE 250 ML IV SCH (08:08)
[2020-06-03] MEDS: BUDESONIDE NEB 0.5 MG/2 ML AMPUL NEB SCH ×2 (08:35→21:34)
[2020-06-03] MEDS: LEVALBUTEROL HCL NEB 1.25 MG/3 ML AMPUL NEB SCH ×2 (08:35→15:23)
[2020-06-03] MEDS: IPRATROPIUM BROMIDE 0.02% NEB 0.5 MG/2.5 ML AMPUL NEB SCH ×2 (08:35→15:23)
[2020-06-03 08:57] LABS: HEMATOCRIT 41.4 % (37.9-51.0); HEMOGLOBIN 13.8 g/dL (13.5-17.0); MEAN CORPUSCULAR HEMOGLOBIN 28.8 pg (27.0-33.4); MEAN CORPUSCULAR HGB CONC 33.4 g/dL (32.0-36.0); MEAN CORPUSCULAR VOLUME 86 fl (80-97); PLATELET COUNT 267 10^3/uL (150-450); RED CELL DISTRIBUTION WIDTH 16.6 % (11.5-14.0); WHITE BLOOD COUNT 9.1 10^3/uL (4.0-10.5)
[2020-06-03 09:27] LABS: BLOOD UREA NITROGEN 14 mg/dL (7-20); CALCIUM 8.9 mg/dL (8.4-10.2); GLUCOSE 285 mg/dL (75-110); POTASSIUM 4.8 mmol/L (3.6-5.0)
[2020-06-03 09:30] LABS: VANCOMYCIN,TROUGH 6.4 ug/mL (5.0-20.0)
[2020-06-03 09:33] LABS: ANION GAP 5 (5-19); CARBON DIOXIDE 36 mmol/L (22-30); CHLORIDE 92 mmol/L (98-107)
[2020-06-03] MEDS: CHOLECALCIFEROL (D3) 1,000 UNIT (25 MCG) TABLET PO SCH (09:36)
[2020-06-03] MEDS: LEVOFLOXACIN 750 MG TABLET PO SCH (09:36)
[2020-06-03] MEDS: ASPIRIN 81 MG TABLET, ENT COATED PO SCH (09:36)
[2020-06-03] MEDS: FAMOTIDINE 20 MG TABLET PO SCH ×2 (09:36→21:51)
[2020-06-03] MEDS: DOCUSATE SODIUM 100 MG CAPSULE PO SCH ×2 (09:37→17:20)
[2020-06-03] MEDS: ASCORBIC ACID 500 MG TABLET PO SCH ×2 (09:37→17:20)
[2020-06-03] MEDS: ZINC SULFATE 220 MG CAPSULE PO SCH (09:37)
[2020-06-03] MEDS ORDERED: VANCOMYCIN HCL 1,250 MG in DEXTROSE 5%-WATER 250 ML IV SCH (15:30)
[2020-06-03] MEDS: OXYCODONE HCL IR 5 MG TABLET PO PRN ×2 (17:20→21:50)
--- NOTE | 2020-06-03 18:40 | PDOC PROGRESS REPORT ---
Subjective Progress Note for:: 06/03/20 Subjective:: Patient states that he feels his breathing is significantly improved today Reason For Visit: ACUTE EXACERBATION WITH COPD, ACUTE RESPIRATORY Physical Exam Vital Signs: Temp Pulse Resp BP Pulse Ox 98.7 F 76 17 126/54 H 100 06/03/20 15:40 06/03/20 15:40 06/03/20 15:40 06/03/20 15:40 06/03/20 15:40 Intake & Output 06/02/20 06/03/20 06/04/20 06:59 06:59 06:59 Intake Total 1474 3527 726 Output Total 975 400 Balance 499 3127 726 Weight 68.5 kg 68.5 kg General appearance: PRESENT: no acute distress, cooperative, well-developed, well-nourished Head exam: PRESENT: atraumatic, normocephalic Eye exam: PRESENT: conjunctiva pink Mouth exam: PRESENT: moist, tongue midline Neck exam: PRESENT: full ROM. ABSENT: JVD Respiratory exam: PRESENT: decreased breath sounds - Entry diminished to bases bilaterally, prolonged expiratory phas, wheezes. ABSENT: accessory muscle use Cardiovascular exam: PRESENT: RRR, +S1, +S2 Pulses: PRESENT: normal radial pulses Vascular exam: PRESENT: normal capillary refill GI/Abdominal exam: PRESENT: normal bowel sounds, soft. ABSENT: distended, tenderness Rectal exam: PRESENT: deferred Extremities exam: PRESENT: full ROM. ABSENT: calf tenderness Musculoskeletal exam: PRESENT: full ROM Neurological exam: PRESENT: alert, awake, oriented to person, oriented to place, oriented to time, oriented to situation, CN II-XII grossly intact Psychiatric exam: PRESENT: appropriate affect, normal mood. ABSENT: agitated, anxious Skin exam: PRESENT: dry, warm Results Laboratory Results: 06/03/20 07:45 06/03/20 07:45 06/03/20 06/03/20 07:45 07:45 WBC 9.1 RBC 4.80 Hgb 13.8 Hct 41.4 MCV 86 MCH 28.8 MCHC 33.4 RDW 16.6 H Plt Count 267 Sodium 133.0 L Potassium 4.8 Chloride 92 L Carbon Dioxide 36 H Anion Gap 5 BUN 14 Creatinine 0.55 Est GFR ( Amer) > 60 Glucose 285 H Calcium 8.9 Magnesium 2.1 05/31/20 05/31/2020 18:15 21:50 21:50 Creatine Kinase 36 L CK-MB (CK-2) 2.36 2.06 Troponin I 0.021 0.033 NT-Pro-B Natriuret Pep 1940 H 06/01/20 06/01/20 06/01/20 04:16 04:16 10:43 Creatine Kinase 34 L 34 L CK-MB (CK-2) 1.91 Troponin I 0.017 NT-Pro-B Natriuret Pep 06/01/20 10:43 Creatine Kinase CK-MB (CK-2) 2.28 Troponin I 0.014 NT-Pro-B Natriuret Pep Impressions: Chest X-Ray 05/31/20 18:29 IMPRESSION: NO ACUTE RADIOGRAPHIC FINDING IN THE CHEST. Assessment and Plan - Diagnosis (1) Acute respiratory failure with hypoxia Is this a current diagnosis for this admission?: Yes Plan: SARS-CoV2 negative Air entry significantly improved today Subjectively patient feels that his breathing is much better Change from dexamethasone to methylprednisolone 40 mg IV every 12 hours Continue budesonide 0.5 mg nebs twice daily Continue levalbuterol 1.25 mg nebs every 8 hours Continue ipratropium 0.5 mg nebs every 8 hours Supplemental O2, patient is tolerating wean Stop ascorbic acid, zinc, and vitamin D (2) COPD with acute exacerbation Is this a current diagnosis for this admission?: Yes Plan: Inhaled steroids, bronchodilators, and O2 as noted above Steroids changed from a dexamethasone to methylprednisolone Continue levofloxacin 750 mg p.o. daily (3) Tobacco dependence Is this a current diagnosis for this admission?: Yes Plan: Smoking cessation counseling reinforced Continue nicotine patch (4) History of lung or bronchial cancer Is this a current diagnosis for this admission?: Yes Plan: Reinforced risks of ongoing tobacco abuse with patient who states he is well aware (5) Essential hypertension Is this a current diagnosis for this admission?: Yes Plan: Adequate BP control Continue metoprolol succinate 12.5 mg p.o. twice daily Continue hydralazine 20 mg IV every 4 hours as needed systolic blood pressure greater than 160 (6) Dyslipidemia Is this a current diagnosis for this admission?: Yes Plan: Continue atorvastatin 40 mg p.o. daily at bedtime (7) DM II (diabetes mellitus, type II), controlled Qualifiers: Diabetes mellitus chcf insulin use: without vermin exterminator use Is this a current diagnosis for this admission?: Yes Plan: Hemoglobin A1c 11.4 Patient states that he was recently started on glargine insulin 10 units subcutaneously at bedtime Patient has required significant doses of SSI in addition to the 15 units of glargine given last p.m. Increase glargine insulin to 20 units subcutaneously at at bedtime, may need further titration however will be cautious to not overshoot goal and predispose patient to hypoglycemia once steroids are stopped Continue FS BS with SSI correction scale (8) Chronic pain syndrome Is this a current diagnosis for this admission?: Yes Plan: Patient receives chronic pain management from his oncologist Continue oxycodone 30 mg p.o. every 4 hours (MME = 270) Stop PRN morphine (9) Hyponatremia Is this a current diagnosis for this admission?: Yes Plan: Patient is asymptomatic and serum sodium remains stable No treatment indicated at this time Monitor (10) Hyperkalemia Is this a current diagnosis for this admission?: Yes Plan: Resolved Monitor (11) Bacteremia Is this a current diagnosis for this admission?: Yes Plan: Blood culture from 05/31/2020 with 1/2 bottles staph species ([employer]), likely contaminant Remaining blood culture from 05/31/2020 NG at 48 hours and repeat blood cultures NG at 24 hours Stop vancomycin Will need to monitor blood cultures and if additional blood cultures become positive we will need to address Procalcitonin pending - Time Time Spent with patient: 25-34 minutes Medications reviewed and adjusted accordingly: Yes Anticipated discharge: Home
[2020-06-03] MEDS: ATORVASTATIN CALCIUM 40 MG TABLET PO SCH (21:51)
[2020-06-03] MEDS: METHYLPREDNISOLONE INJ 40 MG/1 ML SDV IV SCH (21:52)
[2020-06-03] MEDS ORDERED: INSULIN GLARGINE,HUM.REC.ANLOG 1,000 UNIT/10 ML VIAL SUBCUT SCH (22:00)
[2020-06-04] MEDS: LEVALBUTEROL HCL NEB 1.25 MG/3 ML AMPUL NEB SCH ×2 (00:46→07:43)
[2020-06-04] MEDS: IPRATROPIUM BROMIDE 0.02% NEB 0.5 MG/2.5 ML AMPUL NEB SCH ×2 (00:46→07:43)
[2020-06-04] MEDS: OXYCODONE HCL IR 5 MG TABLET PO PRN ×4 (02:06→13:56)
[2020-06-04] MEDS: HEPARIN SOD (PORCINE) 5,000 UNIT/ML 1 ML VIAL SUBCUT SCH ×2 (05:49→14:37)
[2020-06-04] MEDS: METOPROLOL SUCCINATE 25 MG TAB.SR.24H PO SCH (05:50)
[2020-06-04] MEDS: BUPROPION HCL 100 MG TABLET PO SCH ×2 (05:50→13:56)
[2020-06-04] MEDS: BUDESONIDE NEB 0.5 MG/2 ML AMPUL NEB SCH (07:43)
[2020-06-04] MEDS: INSULIN LISPRO 100 UNIT/ML 3 ML VIAL SUBCUT SCH ×2 (09:08→11:32)
[2020-06-04] MEDS: LEVOFLOXACIN 750 MG TABLET PO SCH (09:08)
[2020-06-04] MEDS: FAMOTIDINE 20 MG TABLET PO SCH (09:08)
[2020-06-04] MEDS: DOCUSATE SODIUM 100 MG CAPSULE PO SCH (09:08)
[2020-06-04] MEDS: METHYLPREDNISOLONE INJ 40 MG/1 ML SDV IV SCH (09:08)
[2020-06-04] MEDS: ASPIRIN 81 MG TABLET, ENT COATED PO SCH (09:08)
[2020-06-04 12:34] VITALS: BP 113/60
--- NOTE | 2020-06-08 18:50 | PDOC DISCHARGE SUMMARY ---
Impression - Admit/DC Date/PCP Admission Date/Primary Care Provider: 05/31/20 20:12 DIGNA WHITLEY PA-C Discharge Date: 06/04/20 - Discharge Diagnosis (1) Acute respiratory failure with hypoxia Is this a current diagnosis for this admission?: Yes (2) Bacteremia Is this a current diagnosis for this admission?: Yes (3) COPD exacerbation Is this a current diagnosis for this admission?: Yes (4) Chronic pain syndrome Is this a current diagnosis for this admission?: Yes (5) Diabetes mellitus type 2 in nonobese Is this a current diagnosis for this admission?: Yes (6) Dyslipidemia Is this a current diagnosis for this admission?: Yes (7) Essential hypertension Is this a current diagnosis for this admission?: Yes (8) History of lung or bronchial cancer Is this a current diagnosis for this admission?: Yes (9) Hyperkalemia Is this a current diagnosis for this admission?: Yes (10) Hyponatremia Is this a current diagnosis for this admission?: Yes (11) Tobacco dependence Is this a current diagnosis for this admission?: Yes - Additional Information Resuscitation Status: Full Code Discharge Diet: Cardiac, Diabetic Discharge Activity: Activity As Tolerated, Balance Activity w/Rest, Slowly Increase Activity Referrals: DIGNA DODGE PA-C [Primary Care Provider] - 06/13/20 11:00 am Prescriptions: Prednisone [Deltasone 20 mg Tablet] 3 tab PO DAILY 5 Days #15 tablet Levofloxacin [Levaquin 750 mg Tablet] 750 mg PO DAILY #4 tablet Guaifenesin [Mucus Relief ER] 600 mg PO BID #14 tab.er.12h Nicotine [Nicoderm 21 mg/24 Hr Transderm Patch] 1 each TD DAILYP PRN #30 patch.td24 PRN Reason: Home Medications: Ipratropium/Albuterol Sulfate [Duoneb 3 ml Ampul] 3 ml NEB RTQIDP PRN 11/15/19 Metoprolol Succinate [Toprol Xl 25 mg Tab.sr] 12.5 mg PO BID 11/15/19 Saxagliptin HCl [Onglyza] 2.5 mg PO DAILY 11/15/19 Oxycodone HCl [Oxy-Ir 5 mg Tablet] 30 mg PO Q4HP PRN tablet 11/20/19 Albuterol Sulfate [Albuterol Sulfate Hfa] 2 puff IH Q6HP PRN 01/08/20 Metformin HCl 1,000 mg PO BIDBS 01/08/20 Aspirin [Adult Low Dose Aspirin EC] 81 mg PO DAILY 06/01/20 Atorvastatin Calcium [Lipitor 40 mg Tablet] 40 mg PO QHS 06/01/20 Bupropion HCl [Bupropion HCl Sr] 150 mg PO BID 06/01/20 Insulin Glargine,Hum.rec.anlog [Toujeo Solostar] 10 units SQ DAILY 06/01/20 Acetaminophen [Tylenol 325 mg Tablet] 650 mg PO Q4HP PRN tablet 06/04/20 Docusate Sodium [Colace 100 mg Capsule] 100 mg PO BID capsule 06/04/20 Guaifenesin [Mucus Relief ER] 600 mg PO BID #14 tab.er.12h 06/04/20 Levofloxacin [Levaquin 750 mg Tablet] 750 mg PO DAILY #4 tablet 06/04/20 Nicotine [Nicoderm 21 mg/24 Hr Transderm Patch] 1 each TD DAILYP PRN #30 patch.td24 06/04/20 Prednisone [Deltasone 20 mg Tablet] 3 tab PO DAILY 5 Days #15 tablet 06/04/20 History of Present Illiness History of Present Illness: Per Dr. Blank: RADHA TEJEDA is a 65 year old male who presented to the emergency room with a one-week history of dyspnea. He admits gradually worsening dyspnea over the course of the last week becoming severe over the last 2 days. His dyspnea has been accompanied by wheezing and associated with episodes of diaphoresis. His dyspnea was worsened by exertion or coughing and became nonresponsive to his oral prednisone and home nebulizer treatments today. He denies other associated or accompanying signs and symptoms. He admits numerous prior similar episodes related to his COPD. He admits underlying stage IV lung cancer for which he is receiving chemotherapy with Dr. Ram. He has not identified any additional aggravating or ameliorating factors for his dyspnea. EMS found him to have a O2 sat of 65% on room air at home and treated him with subcutaneous epinephrine 0.3 mL, IV magnesium sulfate 2 g and Solu- Medrol 125 mg intravenously in route to the hospital. In the emergency room he remained tachypneic and tachycardic with respiratory distress requiring use of his accessory muscles of respiration on arrival. He was placed on BiPAP and has responded well to ongoing treatment. He was subsequently admitted to the hospital for further evaluation and treatment. Hospital Course Hospital Course: The patient was admitted medical floor on continuous cardiac telemetry. His SARS-CoV-2 testing was negative. He was provided supplemental oxygen as needed to maintain saturations greater than 89%. He was further supported with scheduled and as needed nebulizer treatments, Pulmicort nebs twice daily, IV steroids, Mucinex, and pulmonary toilet. He was empirically placed on IV Levaquin for COPD exacerbation with increased sputum production. His respiratory symptoms gradually improved and he is now maintaining oxygen saturations while ambulatory on room air. Requesting to discharge home. He patient's hemoglobin A1c was found to be 11.4%. He was educated on medication and dietary compliance. Otherwise, his chronic medical conditions remained stable and did not require acute interventions. Of note, patient had 1 of 4 bottles positive for coag negative staph; determined to be a contaminant. He was empirically placed on vancomycin pending these culture results. Discharged home on p.o. Levaquin. Patient is discharged home in stable condition. He is advised to follow-up with his primary care provider within 1 week. Take medications as prescribed. Avoid known respiratory triggers. Stop smoking. Return to the emergency department as needed for concerning symptoms. Physical Exam Vital Signs: Temp Pulse Resp BP Pulse Ox 98.4 F 81 17 113/60 96 06/04/20 12:32 06/04/20 12:32 06/04/20 12:32 06/04/20 12:32 06/04/20 14:02 General appearance: PRESENT: no acute distress, cooperative, well-developed, well-nourished Head exam: PRESENT: atraumatic, normocephalic Eye exam: PRESENT: conjunctiva pink, EOMI, PERRLA. ABSENT: scleral icterus Mouth exam: PRESENT: moist, tongue midline Respiratory exam: PRESENT: clear to auscultation dayan, decreased breath sounds - Bibasilar, prolonged expiratory phas, symmetrical, unlabored. ABSENT: rales, rhonchi, wheezes Cardiovascular exam: PRESENT: RRR. ABSENT: diastolic murmur, rubs, systolic murmur Vascular exam: PRESENT: normal capillary refill Extremities exam: PRESENT: full ROM. ABSENT: calf tenderness, clubbing, pedal edema Musculoskeletal exam: PRESENT: ambulatory Neurological exam: PRESENT: alert, awake, oriented to person, oriented to place, oriented to time, oriented to situation, CN II-XII grossly intact. ABSENT: motor sensory deficit Psychiatric exam: PRESENT: appropriate affect, normal mood. ABSENT: homicidal ideation, suicidal ideation Skin exam: PRESENT: dry, intact, warm. ABSENT: cyanosis, rash Results Laboratory Results: WBC 9.1 10^3/uL (4.0-10.5) 06/03/20 07:45 RBC 4.80 10^6/uL (4.35-5.55) 06/03/20 07:45 Hgb 13.8 g/dL (13.5-17.0) 06/03/20 07:45 Hct 41.4 % (37.9-51.0) 06/03/20 07:45 MCV 86 fl (80-97) 06/03/20 07:45 MCH 28.8 pg (27.0-33.4) 06/03/20 07:45 MCHC 33.4 g/dL (32.0-36.0) 06/03/20 07:45 RDW 16.6 % (11.5-14.0) H 06/03/20 07:45 Plt Count 267 10^3/uL (150-450) 06/03/20 07:45 Lymph % (Auto) 25.8 % (13-45) 05/31/20 18:15 Grainger % (Auto) 8.0 % (3-13) 05/31/20 18:15 Eos % (Auto) 2.5 % (0-6) 05/31/20 18:15 Baso % (Auto) 1.0 % (0-2) 05/31/20 18:15 Absolute Neuts (auto) 5.9 10^3/uL (1.7-8.2) 05/31/20 18:15 Absolute Lymphs (auto) 2.4 10^3/uL (0.5-4.7) 05/31/20 18:15 Absolute Monos (auto) 0.8 10^3/uL (0.1-1.4) 05/31/20 18:15 Absolute Eos (auto) 0.2 10^3/uL (0.0-0.6) 05/31/20 18:15 Absolute Basos (auto) 0.1 10^3/uL (0.0-0.2) 05/31/20 18:15 Seg Neutrophils % 62.7 % (42-78) 05/31/20 18:15 PT 13.0 SEC (11.4-15.4) 05/31/20 18:15 INR 0.98 05/31/20 18:15 VBG pH 7.30 (7.30-7.42) 05/31/20 18:15 VBG pCO2 61.1 mmHg (35-63) 05/31/20 18:15 VBG HCO3 29.5 mmol/L (20-32) 05/31/20 18:15 VBG Base Excess 1.4 mmol/L 05/31/20 18:15 Sodium 133.0 mmol/L (137-145) L 06/03/20 07:45 Potassium 4.8 mmol/L (3.6-5.0) 06/03/20 07:45 Chloride 92 mmol/L (98-107) L 06/03/20 07:45 Carbon Dioxide 36 mmol/L (22-30) H 06/03/20 07:45 Anion Gap 5 (5-19) 06/03/20 07:45 BUN 14 mg/dL (7-20) 06/03/20 07:45 Creatinine 0.55 mg/dL (0.52-1.25) 06/03/20 07:45 Est GFR ( Amer) > 60 (>60) 06/03/20 07:45 Est GFR (MDRD) Non-Af > 60 (>60) 06/03/20 07:45 Glucose 285 mg/dL (75-110) H 06/03/20 07:45 POC Glucose 381 mg/dL (70-110) H 06/04/20 10:53 Hemoglobin A1c % 11.4 % (4.7-6.0) H 06/01/20 04:16 Lactic Acid 1.2 mmol/L (0.7-2.1) 05/31/20 18:15 Calcium 8.9 mg/dL (8.4-10.2) 06/03/20 07:45 Magnesium 2.1 mg/dL (1.6-2.3) 06/03/20 07:45 Total Bilirubin 0.3 mg/dL (0.2-1.3) 06/02/20 05:40 Direct Bilirubin 0.0 mg/dL (0.0-0.4) 06/02/20 05:40 Neonat Total Bilirubin Not Reportable 06/02/20 05:40 Neonat Direct Bilirubin Not Reportable 06/02/20 05:40 Neonat Indirect Bili Not Reportable 06/02/20 05:40 AST 20 U/L (17-59) 06/02/20 05:40 ALT 24 U/L (<50) 06/02/20 05:40 Alkaline Phosphatase 76 U/L (38-126) 06/02/20 05:40 Creatine Kinase 34 U/L (55-170) L 06/01/20 10:43 CK-MB (CK-2) 2.28 ng/mL (<4.55) 06/01/20 10:43 Troponin I 0.014 ng/mL 06/01/20 10:43 NT-Pro-B Natriuret Pep 1940 pg/mL (<125) H 05/31/20 18:15 Total Protein 5.9 g/dL (6.3-8.2) L 06/02/20 05:40 Albumin 3.2 g/dL (3.5-5.0) L 06/02/20 05:40 Procalcitonin 0.08 ng/mL (0.00-0.08) 06/02/20 16:33 Urine Color STRAW 06/02/20 00:20 Urine Appearance CLEAR 06/02/20 00:20 Urine pH 6.0 (5.0-9.0) 06/02/20 00:20 Ur Specific [place] 1.015 06/02/20 00:20 Urine Protein NEGATIVE mg/dL (NEGATIVE) 06/02/20 00:20 Urine Glucose (UA) >=500 mg/dL (NEGATIVE) H 06/02/20 00:20 Urine Ketones TRACE mg/dL (NEGATIVE) H 06/02/20 00:20 Urine Blood NEGATIVE (NEGATIVE) 06/02/20 00:20 Urine Nitrite (Reflex) NEGATIVE (NEGATIVE) 06/02/20 00:20 Urine Bilirubin NEGATIVE (NEGATIVE) 06/02/20 00:20 Urine Urobilinogen NEGATIVE mg/dL (<2.0) 06/02/20 00:20 Leukocyte Esterase Rfl NEGATIVE (NEGATIVE) 07/12/20 00:20 Urine WBC (Reflex) < 1 /HPF 06/02/20 00:20 Urine Ascorbic Acid NEGATIVE (NEGATIVE) 06/02/20 00:20 Time Trough Drawn 0745 06/03/20 07:45 Vancomycin Trough 6.4 ug/mL (5.0-20.0) 06/03/20 07:45 COVID-19 Source NASOPHARYNGEAL 05/31/20 20:31 COVID-19 (REBEKA) NOT DETECTED 05/31/20 20:31 05/31/20 05/31/20 06/01/20 18:15 21:50 04:16 CK-MB (CK-2) 2.36 2.06 1.91 Troponin I 0.021 0.033 0.017 NT-Pro-B Natriuret Pep 1940 H 06/01/20 10:43 CK-MB (CK-2) 2.28 Troponin I 0.014 NT-Pro-B Natriuret Pep Impressions: Chest X-Ray 05/31/20 18:29 IMPRESSION: NO ACUTE RADIOGRAPHIC FINDING IN THE CHEST. Plan Plan of Treatment: Patient is discharged home in stable condition. He is advised to follow-up with his primary care provider within 1 week. He is provided prescriptions for levofloxacin, prednisone, and guaifenesin. He is advised to avoid known respiratory triggers. He is instructed to return to the emergency department as needed for concerning symptoms. Time Spent: Greater than 30 Minutes Stroke Is this a Stroke Patient?: No Acute Heart Failure - Is this a Heart Failure Patient?: No
== END 2020-06-04 14:51 | disposition home or self-care (01) | DRG 189 ==
LOC: ER 18:12 → EH 19:57 → OBSVTOIN 20:12 → 3N 23:40 → 5 06-03 09:18
PROVIDERS: ADMIT Emergency Medicine; ATTEND Registered Nurse
DX: J96.01 Acute respiratory failure with hypoxia (principal); J44.1 Chronic obstructive pulmonary disease with (acute) exacerbation; C34.90 Malignant neoplasm of unspecified part of unspecified bronchus or lung; E87.1 Hypo-osmolality and hyponatremia; R78.81 Bacteremia; B95.8 Unspecified staphylococcus as the cause of diseases classified elsewhere; E78.00 Pure hypercholesterolemia, unspecified; I10 Essential (primary) hypertension; E87.5 Hyperkalemia; E11.9 Type 2 diabetes mellitus without complications; G89.4 Chronic pain syndrome; F17.210 Nicotine dependence, cigarettes, uncomplicated; Z79.84 Long term (current) use of oral hypoglycemic drugs; Z79.82 Long term (current) use of aspirin; Z79.4 Long term (current) use of insulin; Z79.51 Long term (current) use of inhaled steroids; Z79.52 Long term (current) use of systemic steroids; Z79.899 Other long term (current) drug therapy; Z20.828 Contact with and (suspected) exposure to other viral communicable diseases
CPT/HCPCS: 36415; 71045; 80048; 80053; 80202; 81001; 82550; 82553; 82803; 82962; 83036; 83605; 83735; 83880; 84145; 84484; 85025; 85027; 85610; 87040; 87077; 87150; 87186; 87635; 93005; 93010; 94640; 94660; 96360; 96361; 99285; C9803; J1100; J1644; J1815; J2270; J2920; J3370; J3490; J7030; J7050; J7060

== ENCOUNTER → 2020-07-12 | Outpatient (CLI) | payer MEDICARE, OTHER ==
--- NOTE | 2020-07-12 13:07 | RADIOLOGY REPORT (SQ) ---
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 Images reviewed with lung, soft tissue and bone windows. Reconstructed coronal and sagittal MPR and MIP images reviewed. All images stored on PACS. All CT scanners at this facility use dose modulation, iterative reconstruction, and/or weight based d osing when appropriate to reduce radiation dose to as low as reasonably achievable (ALARA). [facility]: Dose Right [facility]: CareDose [facility]: Dose Right [facility]: Teradose 4D [facility]: [employer] CONTRAST TYPE AND DOSE: contrast/concentration: Isovue 350.00 mmol/ml; Total Contrast Delivered: 80. 0 ml; Total Saline Delivered: 45.0 ml RENAL FUNCTION: See abdomen RADIATION DOSE: CT Rad equipment meets quality standard of care and radiation dose reduction techniq ues were employed. CTDIvol: 5.4 - 6.2 mGy. DLP: 810 mGy-cm. . LIMITATIONS: None. FINDINGS: LUNGS AND PLEURA: Or post treatment changes within the left hemithorax with unchanged left suprahilar nodular opacity measuring approximately 18 by 9 mm (series 6, image 39). Stable addition al pleural thickening along the left anterior hemithorax. Small left-sided pleural effusion, mildly increased from prior. No new discrete nodules or masses. No additional airspace disease. No pneumo thorax. HILAR AND MEDIASTINAL STRUCTURES: Mildly increased size of a pretracheal node measuring 9 mm in short axis (series 2, image 23), previously 7 mm. Grossly stable left paratracheal soft tissue. No addit ional discrete mediastinal, hilar or axillary adenopathy. HEART AND VASCULAR STRUCTURES: Cardiomegaly. Scattered three-vessel coronary atherosclerosis. No pe ricardial effusion. No central pulmonary embolus. Dilated main pulmonary artery, stable. No aortic dissection or aneurysm. HARDWARE: Right-sided chest port with catheter tip SVC. UPPER ABDOMEN: See separate report of the CT of the abdomen. THYROID AND OTHER SOFT TISSUES: No masses. No adenopathy. BONES: No acute bony abnormality. No suspicious lytic or blastic osseous lesion. Unchanged mixed ly tic and sclerotic appearance of the T11 and T7 vertebral bodies. OTHER: No other significant finding. IMPRESSION: 1. Minimally increased size of a trace left-sided pleural effusion. Additional minimal ly increased size of the right pretracheal node measuring 9 mm, previously 7 mm. Recommend attention on follow-up exams. 2. Stable additional posttreatment changes within the left hemithorax without other evidence of intr athoracic metastatic disease. 3. Enlarged pulmonary artery which can be seen with pulmonary arterial hypertension, stable. TECHNICAL DOCUMENTATION: JOB ID: [id number] Quality ID # [id number]: Final reports with documentation of one or more dose reduction techniques (e.g., Au tomated exposure control, adjustment of the mA and/or kV according to patient size, use of iterative reconstruction technique) 2010 [employer]- All Rights Reserved Reading location - IP/workstation name: [email or web address]
--- NOTE | 2020-07-12 13:18 | RADIOLOGY REPORT (SQ) ---
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 No oral contrast. Images reviewed with lung, soft tissue, and bone windows. Reconstructed coronal and sagittal MPR images reviewed. Delayed images for evaluation of the urinary system also acquired. All images stored on PACS. All CT scanners at this facility use dose modulation, iterative reconstruction, and/or weight based d osing when appropriate to reduce radiation dose to as low as reasonably achievable (ALARA). [facility]: Dose Right [facility]: CareDose [facility]: Dose Right [facility]: Teradose 4D [facility]: [employer] CONTRAST TYPE AND DOSE: See chest RENAL FUNCTION: Creatinine 0.6 RADIATION DOSE: . LIMITATIONS: None. FINDINGS: LOWER CHEST: See separate report of the CT of the chest. LIVER: Previously-seen right inferior hepatic lobe mass on exam dated 2014 has resolved. There is so me capsular retraction noted. No new discrete lesions. No intrahepatic ductal dilation. SPLEEN: Normal size. No focal lesions. PANCREAS: No masses. No significant calcifications. No adjacent inflammation or peripancreatic fluid collections. Pancreatic duct not dilated. GALLBLADDER: No identified stones by CT criteria. No inflammatory changes to suggest cholecystitis. ADRENAL GLANDS: No significant masses or asymmetry. RIGHT KIDNEY AND URETER: No solid masses. No significant calcifications. No hydronephrosis or hyd roureter. LEFT KIDNEY AND URETER: No solid masses. No significant calcifications. No hydronephrosis or hydr oureter. AORTA AND VESSELS: Scattered aortoiliac atherosclerosis without aneurysm. No dissection. Renal arteri es, SMA, celiac without stenosis. RETROPERITONEUM: No retroperitoneal adenopathy, hemorrhage or masses. BOWEL AND PERITONEAL CAVITY: No masses or inflammatory changes. No free fluid or peritoneal masses. APPENDIX: Normal. PELVIS: Mild circumferential bladder wall thickening. No focal lesions. No pelvic free fluid, adeno fern or mass. Scattered prostatic calcifications. ABDOMINAL WALL: Fat containing inguinal hernias. Subcutaneous edema along the anterior abdominal wal l and gluteal region. No focal mass. BONES: No acute bony abnormality. No suspicious lytic or blastic osseous lesions. OTHER: No other significant finding. IMPRESSION: 1. No evidence of new intraabdominal/ pelvic metastatic disease. 2. No evidence of acute intra-abdominal process. TECHNICAL DOCUMENTATION: JOB ID: [id number] Quality ID # [id number]: Final reports with documentation of one or more dose reduction techniques (e.g., Au tomated exposure control, adjustment of the mA and/or kV according to patient size, use of iterative reconstruction technique) 2010 [employer]- All Rights Reserved Reading location - IP/workstation name: [email or web address]
== END ==
LOC: RAD 10:28
PROVIDERS: ATTEND Physician Assistant Medical
DX: C34.02 Malignant neoplasm of left main bronchus (principal); C79.51 Secondary malignant neoplasm of bone
CPT/HCPCS: 71260; 74177; 82565

== ENCOUNTER → 2020-08-28 | Outpatient (CLI) | payer MEDICARE, OTHER ==
--- NOTE | 2020-08-28 16:43 | RADIOLOGY REPORT (SQ) ---
EXAM DESCRIPTION: VENOUS BILATERAL LOWER IMAGES COMPLETED DATE/TIME: 08/28/2020 3:03 pm REASON FOR STUDY: SWELLLING R60.0 LOCALIZED EDEMA COMPARISON: None. TECHNIQUE: Dynamic and static mullins scale and color images acquired of both lower extremity venous sy stems. Selected spectral images acquired with additional compression and augmentation maneuvers. Imag es stored on PACS. LIMITATIONS: None. FINDINGS: RIGHT LEG COMMON FEMORAL AND FEMORAL: Normal phasicity, compression and augmentation. No visualized echogenic m aterial on mullins scale. No defects on color images. POPLITEAL: Normal compression and augmentation. No visualized echogenic material on mullins scale. No de fects on color images. CALF VESSELS: Normal compression and augmentation. No visualized echogenic material on mullins scale. No defects on color image. GSV AND SSV: Normal compression. No visualized echogenic material on mullins scale. No defects on color images. ANY DEEP VENOUS INSUFFICIENCY: Not evaluated. ANY EVIDENCE OF POPLITEAL CYST: No. OTHER: No other significant finding. LEFT LEG COMMON FEMORAL AND FEMORAL: Normal phasicity, compression and augmentation. No visualized echogenic m aterial on mullins scale. No defects on color images. POPLITEAL: Normal compression and augmentation. No visualized echogenic material on mullins scale. No de fects on color images. CALF VESSELS: Normal compression and augmentation. No visualized echogenic material on mullins scale. No defects on color images. GSV AND SSV: Normal compression. No visualized echogenic material on mullins scale. No defects on color images. ANY DEEP VENOUS INSUFFICIENCY: Not evaluated. ANY EVIDENCE POPLITEAL CYST: No. OTHER: No other significant finding. IMPRESSION: NO EVIDENCE DVT OR SVT IN EITHER LEG. TECHNICAL DOCUMENTATION: JOB ID: [id number] 2010 [email or web address]- All Rights Reserved Reading location - IP/workstation name: [email or web address]
--- NOTE | 2020-08-29 13:55 | RADIOLOGY REPORT (SQ) ---
EXAM DESCRIPTION: ARTERIAL LOWER EXTREM BILAT IMAGES COMPLETED DATE/TIME: 08/28/2020 3:03 pm REASON FOR STUDY: PAIN/SWELLLING R60.0 LOCALIZED EDEMA COMPARISON: None. TECHNIQUE: Dynamic and static mullins scale and color images acquired of the lower extremity arteries. Additional selected spectral images recorded. ABIs recorded. LIMITATIONS: None. FINDINGS: RIGHT LEG: ABIS: Normal, over 1.0. INFLOW ARTERIES: Not imaged. FEMORAL ARTERIES:Multiphasic waveforms. Normal, no velocity elevation to suggest focal stenosis. Norm al color Doppler evaluation. No aneurysm. POPLITEAL ARTERY:Multiphasic waveforms. Normal, no velocity elevation to suggest focal stenosis. Norm al color Doppler evaluation. No aneurysm. PATENT TIBIOPERONEAL TRUNK AND 3 VESSEL RUNOFF: Yes, normal vessels. TBI: Not performed. OTHER: Diffuse atherosclerotic calcifications. LEFT LEG: ABIS: Normal, over 1.0. INFLOW ARTERIES: Not imaged. FEMORAL ARTERIES:Multiphasic waveforms. Normal, no velocity elevation to suggest focal stenosis. Norm al color Doppler evaluation. No aneurysm. POPLITEAL ARTERY:Multiphasic waveforms. Normal, no velocity elevation to suggest focal stenosis. Norm al color Doppler evaluation. No aneurysm. PATENT TIBIOPERONEAL TRUNK AND 3 VESSEL RUNOFF: Yes, normal vessels. TBI: Not performed. OTHER: Diffuse atherosclerotic calcifications. IMPRESSION: No significant stenosis. Normal ABIs. COMMENT: [place] NORMAL: Greater than 1.0 MINIMAL DISEASE: 0.9 to 1.0 CLAUDICATION: 0.5 to 0.9 SEVERE ARTERIAL DISEASE: Less than 0.5 [facility] NORMAL: Greater than 1.0 (1.2 If Heavy Calcifications) NORMAL TO MILD ISCHEMIA: 0.8 to 1.0 MODERATE ISCHEMIA: 0.4 to 0.8 SEVERE ISCHEMIA: Less than 0.4 TECHNICAL DOCUMENTATION: JOB ID: [id number] 2010 [employer]- All Rights Reserved Reading location - IP/workstation name: [email or web address]
== END ==
LOC: SP 12:41
PROVIDERS: ATTEND Nurse Practitioner Family
DX: R60.0 Localized edema (principal)
CPT/HCPCS: 93922; 93925; 93970